=== PATIENT | female | born 1955 | race Caucasian/White ===

== ENCOUNTER → 2018-05-06 10:25 | Outpatient (CLI) | payer OTHER, SELFPAY ==
--- NOTE | 2018-05-06 | DI.MG.S_ITS ---
BILATERAL DIGITAL SCREENING MAMMOGRAM 3D/2D WITH CAD: 05/06/2018 CLINICAL: Routine screening. Comparison is made to exams dated: 04/16/2016 mammogram, 04/23/2017 mammogram, and 04/12/2015 mammogram - [facility]. The tissue of both breasts is heterogeneously dense. This may lower the sensitivity of mammography. Current study was also evaluated with a Computer Aided Detection (CAD) system. No significant masses, calcifications, or other findings are seen in either breast. There has been no significant interval change. IMPRESSION: NEGATIVE There is no mammographic evidence of malignancy. A 1 year screening mammogram is recommended. This exam was interpreted at Station ID: [id number]. NOTE: For mammograms, a report in lay terms will be sent to the patient. Approximately 15% of breast malignancies will not be visualized mammographically. In the management of a palpable breast mass, a negative mammogram must not discourage biopsy of a clinically suspicious lesion. Electronically Signed By: Pillo barrett/keagan:05/06/2018 16:59:05 letter sent: Normal Exam ACR BI-RADS Category 1: Negative [id number]
== END ==
PROVIDERS: PCP Family Medicine; Visit Provider Family Medicine
DX: Z12.31 Encounter for screening mammogram for malignant neoplasm of breast (principal)
CPT/HCPCS: 77063; 77067

== ENCOUNTER → 2018-11-05 11:13 | Outpatient (CLI) | payer OTHER, SELFPAY ==
[2018-11-05 12:29] LABS: Alanine Aminotransferase 61 IU/L (9-52); Albumin 3.3 g/dL (3.5-5.0); Albumin Globulin Ratio 0.7 (1.0-2.8); Alkaline Phosphatase 145 U/L (38-126); Aspartate Aminotransferase 43 IU/L (14-36); Blood Urea Nitrogen 11 mg/dL (7-17); Calcium 9.1 mg/dL (8.4-10.2); Carbon Dioxide 21 mmol/L (22-32); Chloride 95 mmol/L (98-107); Estimated Glomerular Filt Rate > 60.0 mL/min (>60); Globulin 4.8 g/dL (1.7-4.1); Glucose 328 mg/dL (80-110); HDL Cholesterol 33 mg/dL (40-60); Potassium 4.1 mmol/L (3.4-5.1); Sodium 133 mmol/L (137-145); Total Protein 8.1 g/dL (6.3-8.2)
[2018-11-05 12:58] LABS: Cholesterol 1219 mg/dL (140-199); HEMOLYSIS < 15 (0-50)
[2018-11-05 12:59] LABS: Thyroid Stimulating Hormone 2.66 uIU/mL (0.47-4.68)
[2018-11-05 13:10] LABS: Add Manual Diff / Slide Review NO; Basophils Absolute Auto 100 /uL (0-100); Basophils Percent Auto 0.8 % (0-2); Eosinophils Absolute Auto 200 /uL (0-450); Eosinophils Percent Auto 3.3 % (2-4); Hematocrit 41.1 % (36-46); Hemoglobin 14.8 g/dL (12.0-16.0); Lymphocytes Absolute Auto 2500 /uL (1100-4500); Lymphocytes Percent Auto 33.6 % (25-40); Mean Corpuscular HGB Conc 35.9 % (30-36); Mean Corpuscular Hemoglobin 33.5 PG (26-34); Mean Corpuscular Volume 93.4 fL (80-100); Monocytes Absolute Auto 500 /uL (0-900); Monocytes Percent Auto 7.2 % (3-14); Neutrophils Absolute Auto 4200 /uL (1500-7000); Neutrophils Percent Auto 55.1 % (50-75); Platelet Count 305 X10^3/uL (150-400); Red Cell Distribution Width 12.6 % (11.6-14.8)
[2018-11-05 13:12] LABS: White Blood Cell Count 7.6 X10^3/uL (4.5-11.0)
[2018-11-05 13:26] LABS: Triglycerides 13862 mg/dL (35-150)
[2018-11-05 14:09] LABS: Hemoglobin A1C% w Est Avg Glu 9.4 % (4.0-6.0)
== END ==
PROVIDERS: PCP Family Medicine; Visit Provider Family Medicine
DX: E11.9 Type 2 diabetes mellitus without complications (principal); E78.5 Hyperlipidemia, unspecified
CPT/HCPCS: 36415; 80053; 80061; 83036; 84443; 85025

== ENCOUNTER 2018-11-05 20:14 | Inpatient (IN) | payer OTHER, SELFPAY ==
[2018-11-05 20:20] VITALS: BP 174/92; PULSE 83; RESP 16; TEMP 36.8; O2SAT 98; BMI 30.2
[2018-11-05 20:50] VITALS: BP 172/95; BP 174/92; PULSE 82; PULSE 83
--- NOTE | 2018-11-05 21:47 | DI.CT.S_ITS ---
PROCEDURE: CT ABDOMEN PELVIS W CON INDICATIONS: EPIGASTRIC PAIN, TECHNIQUE: After the administration of intravenous contrast, 5 mm thick sections acquired from the diaphragm to the symphysis. 5 mm coronal and sagittal reformats were acquired. For radiation dose reduction, the following was used: automated exposure control, adjustment of mA and/or kV according to patient size. COMPARISON: [facility], , US ABDOMEN COMPLETE, 11/05/2018, 23:28. FINDINGS: Image quality: Excellent. ABDOMEN: Lung bases: Lung bases are clear. Heart size is normal. Solid organs: There is stranding adjacent to the pancreatic head. A small amount of fluid is present in the lesser sac. Pancreas enhances normally without evidence for pancreatic necrosis. Pancreatic duct is normal in caliber. No pancreatic calcifications. Diffuse hepatic fatty infiltration. Liver is normal in size and enhancement. Gallbladder is normal. Biliary system is non dilated. Spleen is normal in size and enhancement. No adrenal nodules. Kidneys demonstrate normal size and enhancement, without hydronephrosis. Peritoneum and bowel: Bowel loops demonstrate normal wall thickness and caliber. No free fluid or air. Nodes and vessels: No retroperitoneal or mesenteric adenopathy by size criteria. Aorta and inferior vena cava are normal in size. Miscellaneous: No ventral hernias. PELVIS: Genitourinary: Bladder wall thickness is normal. Miscellaneous: No inguinal hernias or adenopathy. Bones: No suspicious bony lesions. No vertebral body compression fractures. IMPRESSION: 1. The CT findings are consistent with acute pancreatitis. 2. No gallstones. 3. Hepatic steatosis. The result was discussed with Dr. Diamond prior to dictation. No significant discrepancy with the manager night radiology preliminary report. Dictated by: Jany Strauss M.D. on 11/06/2018 at 7:58 Approved by: Jany Strauss M.D. on 11/06/2018 at 18:09
[2018-11-05 22:00] VITALS: BP 170/84; PULSE 84; RESP 17; O2SAT 97
[2018-11-05] MEDS: MORPHINE 4 MG/ML INJ IV (22:27)
[2018-11-05] MEDS: SODIUM CHLORIDE 0.9% 1,000 ML 1000 ML IV (22:28)
[2018-11-05 22:37] LABS: Lipase 895 U/L (23-300)
--- NOTE | 2018-11-05 23:09 | DI.US.S_ITS ---
PROCEDURE: US ABDOMEN COMPLETE INDICATIONS: PANCREATITIS, PAIN TECHNIQUE: Real-time scanning was performed of the abdominal and retroperitoneal organs, with image documentation. COMPARISON: [facility], CT, CT ABDOMEN PELVIS W CON, 11/05/2018, 22:07. FINDINGS: Liver: Liver is diffusely increased in echogenicity. No focal hepatic abnormalities identified. Normal hepatic size. Gallbladder: No gallstones identified. Normal gallbladder wall. No pericholecystic fluid. Negative sonographic Alanis sign. Biliary ducts: Intrahepatic bile ducts are non-dilated. Extrahepatic bile duct caliber measures 6.3 mm. Normal is 6-7 mm or less in diameter, or 10 mm or less post-cholecystectomy. Pancreas: Visualized portions of the pancreas are sonographically normal. Spleen: Spleen is normal in size and homogeneous in echotexture. Kidneys: Kidneys are normal in size and echotexture. Right kidney measures 13.0 cm long; left kidney measures 11.9 cm long. No hydronephrosis or nephrolithiasis. No solid masses. Aorta: Visualized aorta is normal in caliber at less than 3 cm. Iliacs: Not well-visualized. IVC: Intrahepatic inferior vena cava is patent. Miscellaneous: No free abdominal fluid. IMPRESSION: 1. Minimally increased hepatic echogenicity noted possibly related to hepatic steatosis but other sources of hepatocellular disease cannot be excluded. Recommend clinical correlation. 2. No source for abdominal pain identified. Note: These findings are concordant with the preliminary interpretation. Dictated by: Romero POSEY Interpreted: Anastasia Garcia MD on 11/06/2018 at 8:42 Approved by: Anastasia Garcia M.D. on 11/06/2018 at 10:57
--- NOTE | 2018-11-05 23:27 | ED_ITS ---
HPI - Abdominal Pain General Chief Complaint: Abdominal Pain Stated Complaint: states severe upper abdominal pain and back ache Time Seen by Provider: 11/05/18 21:21 Source: patient, family and old records reviewed Mode of arrival: ambulatory Limitations: no limitations History of Present Illness HPI narrative: Patient is a 62-year-old female who presents with abdominal pain and back pain. She says has been ongoing for a few days she saw her PCP today who actually did outpatient blood work. She is noted to have triglycerides of 13,000. patient states that she has been taking her medication. She has been having some epigastric pain radiating through to her back. She has been nauseated at times but no significant vomiting. His other blood work reviewed today mild elevations in liver enzymes but bilirubin is normal along with normal WBC. MD complaint: abdominal pain Onset (ago): minute(s) Related Data Home Medications Medication Instructions Recorded Confirmed CA PANTOTHENATE/FOLIC ACID/VIT 1 tab PO Q DAY #0 05/23/11 11/06/18 (MULTIVITAMIN) Advair Diskus 1 inhalation INHALATION QAM 11/06/18 11/06/18 clobetasol 0 % TOPICAL PRN PRN 11/06/18 11/06/18 Previous Rx's Medication Instructions Recorded atorvastatin 80 mg PO HS #90 tab 05/05/18 fenofibrate nanocrystallized 145 mg PO HS #90 tab 05/05/18 [Tricor] metformin 500 mg tablet 500 mg PO BIDCC #180 tab 10/13/18 olopatadine 0.1 % eye drops 1 drop EYE-BOTH Q DAY #5 ml 10/15/18 Allergies Allergy/AdvReac Type Severity Reaction Status Date / Time No Known Drug Allergies Allergy Verified 11/05/18 20:46 Review of Systems Review of Systems GENERAL: Denies chills, fatigue, malaise, fever, sweats, travel HEENT: Denies sinus pain, ear pain, sore throat, difficulty swallowing, neck pain RESPIRATORY: Denies dyspnea, cough, wheezing, hemoptysis, sputum. CARDIOVASCULAR: Denies chest pain, palpitations, orthopnea, edema GASTROINTESTINAL: see HPI : Denies dysuria, frequency, incontinence, hematuria, urinary retention, flank pain. MUSCULOSKELETAL: Denies weakness, joint pain, or bony pain SKIN: No rash, no erythema, no pruritus NEUROLOGIC: Denies weakness, dizziness, headache, numbness, change in speech, confusion PSYCHIATRIC: No concerning psychosocial issues. 12 point review of systems is negative except for those stated above and HPI PFSH Medical History Dementia (Acute) Hyperlipidemia (Acute) Hypertension (Acute) Surgical History Status post surgery (01/10/10) Status post tubal ligation Family History Brother Age: 63 Hypertension Mother Kidney failure Sister Age: 70 Hypertension Social History Smoking Status: Never smoker Family History Brother Age: 63 Hypertension Mother Kidney failure Sister Age: 70 Hypertension Social History Smoking Status: Never smoker Exam Initial Vital Signs Initial Vital Signs: Vital Signs Temperature 98.2 F 11/05/18 20:20 Pulse Rate 83 11/05/18 20:20 Respiratory Rate 16 11/05/18 20:20 Blood Pressure 174/92 H 11/05/18 20:20 Pulse Oximetry 98 11/05/18 20:20 Const General: cooperative Nutritional Appearance: well nourished Orientation: alert, awake and oriented x3 HENMT Head: normal to inspection and normocephalic Eyes General: appearance normal, both eyes and all related structures Neck Neck: normal visual inspection, full ROM and no meningeal signs Chest Chest: normal inspection of the chest Resp Effort & Inspection: normal respiratory effort and able to speak in complete sentences Auscultation: clear to auscultation bilaterally, no rales, no rhonchi and no wheezes Cardio Rate: regular rate Rhythm: regular rhythm Heart Sounds: S1 normal and S2 normal GI Inspection: normal to inspection Palpation: soft, No firm, No guarding and tender ( epigastric area) Auscultation: normal bowel sounds Skin General: no rashes or lesions noted, No jaundice and No petechiae Course Orders Ordered: ED Orders 11/05/18 21:47 CT abdomen pelvis w con Stat 11/05/18 22:20 Lipase Stat 11/05/18 23:09 US abdomen complete Stat Sodium Chloride (Normal Saline 0.9%) 1,000 mls @ 200 mls/hr IV CONT LADARIUS Insulin Glargine (Lantus Solostar (Pen)) 10 unit SUBCUT BEDTIME LADARIUS Last Admin: 11/06/18 02:08 Dose: 10 unit Morphine Sulfate (Morphine) 2 mg IV Q4HR PRN PRN Reason: Pain, Moderate (4-6) Discontinued Medications Sodium Chloride (Normal Saline 0.9%) 1,000 mls @ 1,000 mls/hr IV BOLUS ONE Stop: 11/05/18 22:36 Last Infusion: 11/05/18 23:40 Dose: 0 mls/hr Admin: 11/05/18 22:28 Dose: 1,000 mls/hr Sodium Chloride (Normal Saline 0.9%) 1,000 mls @ 1,000 mls/hr IV BOLUS ONE Stop: 11/06/18 01:02 Last Admin: 11/06/18 01:53 Dose: 1,000 mls/hr Insulin Glargine (Lantus Solostar (Pen)) 10 unit SUBCUT BEDTIME LADARIUS Insulin Glargine (Lantus Solostar (Pen)) 10 unit SUBCUT BEDTIME LADARIUS Morphine Sulfate (Morphine) 4 mg IV NOW ONE Stop: 11/05/18 21:48 Last Admin: 11/05/18 22:27 Dose: 4 mg Morphine Sulfate (Morphine) 2 mg IV NOW ONE Stop: 11/06/18 00:04 Last Admin: 11/06/18 01:51 Dose: 2 mg Ondansetron HCl (Zofran) 4 mg IV NOW ONE Stop: 11/05/18 21:48 Last Admin: 11/06/18 01:53 Dose: Not Given Vital Signs - 8 hr 11/05/18 20:20 11/05/18 20:50 11/05/18 22:00 Temperature 98.2 F Pulse Rate 83 83 84 Respiratory Rate 16 17 Blood Pressure 174/92 H Blood Pressure [Left Arm] 174/92 H Blood Pressure [Right Arm] 172/95 H 170/84 H Pulse Oximetry 98 97 11/05/18 23:34 11/05/18 23:36 11/06/18 00:45 Temperature 98.6 F Pulse Rate 85 86 Respiratory Rate 17 18 Blood Pressure 162/92 H Blood Pressure [Left Arm] Blood Pressure [Right Arm] 177/85 H Pulse Oximetry 96 93 MDM - Abdominal Pain Lab Data Attestation: I reviewed the patient's lab results. Lab Results 11/05/18 Range/Units 22:20 Lipase 895 H (23-300) U/L Imaging Data CT scan - abdomen: Radiologist's impression: night coordinator report: acute pancreatitis with fluid and stranding predominantly adjacent to the pancreatic head as well as between pancreatic head and gallbladder US - abdomen: Radiologist's impression: night coordinator report: No significant abnormality please refer to the CT earlier common bile duct dilated 6.3 mm MDM Narrative Medical decision making narrative: patient's pain is controlled she is not actively vomiting. Pancreatitis is likely from hypertriglyceridemia. she is likely noncompliant with her medications hemoglobin A1c is also 9.4. I discussed case with Dr. Diamond her PCP. Agrees with admission. Request Lantus 10 units, and sliding scale. Discharge Plan Departure Patient Disposition: Admitted as Observation Clinical Impression: Hypertriglyceridemia Pancreatitis Qualifiers: Chronicity: acute Pancreatitis type: other Acute pancreatitis complication: uninfected necrosis Qualified Code(s): K85.81 - Other acute pancreatitis with uninfected necrosis Discharge Date/Time: 11/06/18 00:39 Interventions: ED Discharge Assessment Last Done: 11/06/18 00:39 Admit Date/Time: 11/06/18 00:10 Admit Provider: Arthur Diamond
[2018-11-05 23:34] VITALS: PULSE 85; RESP 17; O2SAT 96
[2018-11-05 23:36] VITALS: BP 177/85
[2018-11-06] VITALS (8 sets, daily range): BP systolic 130–172; BP diastolic 69–92; PULSE 84–100; RESP 15–20; TEMP 36.7–37.2; O2SAT 93–96; BMI 30.2
[2018-11-06] MEDS: MORPHINE 2 MG/ML INJ IV ×4 (01:51→18:41)
[2018-11-06] MEDS: SODIUM CHLORIDE 0.9% 1,000 ML 1000 ML IV (01:53)
[2018-11-06] MEDS: INSULIN GLARGINE 100 UNIT/ML 3ML PEN 10 UNIT SUBCUT ×2 (02:08→21:41)
[2018-11-06] MEDS: SODIUM CHLORIDE 0.9% 1,000 ML 200 ML IV ×5 (03:01→23:43)
--- NOTE | 2018-11-06 04:15 | PC.NURSE ---
Addendum entered by Grecia Haider R.N. 11/06/18 06:42: MORPHINE MINIMALLY EFFECTIVE. BP ELEVATED. DR. ESTEVEZ PAGED TO NOTIFY OF BOTH CONCERNS. AWAITING RETURN CALL. Original Note: PT ARRIVED TO ROOM 211 VIA W/C AT APPROX 0100. A/OX3. AMBULATED TO BED WITHOUT ASSIST. STEADY ON FEET. REPORTS ABD PAIN. PER MD IN ED PT WAS TO HAVE 2 LITERS NS, 1O UNITS OF LANTUS, 2 MG MORPHINE. PT ONLY REC 1 LITER OF NS. THIS LIBRARY SERVICES ASSISTANT ADMINISTERED 1 LITER NS AND THEN STARTED NS INFUSION 200 ML/HR. 2 MG MORPHINE. INTERACTIVE MULTIMEDIA DESIGNER CAME TO THIS UNIT TO ADMINISTER 10 UNITS OF LANTUS. PT ORIENTED TO UNIT/CALL SYSTEM. PT REPORTS SHE DRINK 1-3 DRINKS PER DAY BUT HAS NOT DRANK FOR LAST 2 DAYS.
[2018-11-06] MEDS: HYDROMORPHONE PCA (6MG/30ML) 6 MG/30 ML PCA.VIAL IV ×2 (08:35→22:30)
[2018-11-06 08:53] LABS: Alanine Aminotransferase 42 IU/L (9-52); Albumin 3.7 g/dL (3.5-5.0); Albumin Globulin Ratio 1.1 (1.0-2.8); Alkaline Phosphatase 78 U/L (38-126); Aspartate Aminotransferase 27 IU/L (14-36); Bilirubin Total 0.8 mg/dL (0.2-1.3); Blood Urea Nitrogen 4 mg/dL (7-17); Calcium 7.5 mg/dL (8.4-10.2); Carbon Dioxide 12 mmol/L (22-32); Chloride 101 mmol/L (98-107); Estimated Glomerular Filt Rate > 60.0 mL/min (>60); Globulin 3.5 g/dL (1.7-4.1); Glucose 233 mg/dL (80-110); HEMOLYSIS 49 (0-50); Potassium 3.7 mmol/L (3.4-5.1); Sodium 133 mmol/L (137-145); Total Protein 7.2 g/dL (6.3-8.2)
[2018-11-06 08:59] LABS: B Type Natriuretic Peptide < 100 (<100)
--- NOTE | 2018-11-06 09:16 | PM.HP.1 ---
History of Present Illness Date Patient Seen: 11/06/18 Time Patient Seen: 07:16 Chief complaint: states severe upper abdominal pain and back ache Narrative: Abdominal pain. Patient admitted through the emergency room last night for pancreatitis. Patient has been essentially well up until Saturday morning. She began have abdominal pain. She called the office and we order some laboratory studies and set her up for appointment next week. During the course of the day the pain got worse pretty intense. No vomiting but some nausea. She has had decreased stool output. She came to the emergency room and was found to have some changes consistent with pancreatitis and admitted. Patient thinks she may have had a similar episode several years ago with for which she sought no physician 4. She is unclear whether not his pancreatitis or not but she thinks. Patient still has a gallbladder has lot of gallstones in the past. She admits to drinking 3 drinks when she does drink but she did apparently does not drink every day. Patient is since retired. She has a history of diabetes, history of hyper lipidemia, and also noncompliance with medications. She admits that she has not been terribly compliant with medications although details are unknown. Patient History Medical History Dementia (Acute) Hyperlipidemia (Acute) Hypertension (Acute) Surgical History Status post surgery (01/10/10) Status post tubal ligation Family History Brother Age: 63 Hypertension Mother Kidney failure Sister Age: 70 Hypertension Social History household members: spouse Smoking Status: Never smoker alcohol intake: current Family & Social History Family History Brother Age: 63 Hypertension Mother Kidney failure Sister Age: 70 Hypertension Social History: household members spouse Prior Living Arrangements House Safety & Behavioral: Feels Safe in Current Yes Environment Been Physically Hurt or No Threatened By a Person Suicidal Ideation Description None Tobacco & Substance use: Smoking Status Never smoker alcohol intake current alcohol intake frequency 3 or more drinks per day Substance Use Type does not use Meds Home Medications Medication Instructions Recorded Confirmed Type CA PANTOTHENATE/FOLIC ACID/VIT 1 tab PO Q DAY #0 05/23/11 11/06/18 History (MULTIVITAMIN) atorvastatin 80 mg PO HS #90 tab 05/05/18 11/06/18 Rx fenofibrate nanocrystallized 145 mg PO HS #90 tab 05/05/18 11/06/18 Rx [Tricor] metformin 500 mg tablet 500 mg PO BIDCC #180 tab 10/13/18 11/06/18 Rx olopatadine 0.1 % eye drops 1 drop EYE-BOTH Q DAY #5 ml 10/15/18 11/06/18 Rx Advair Diskus 1 inhalation INHALATION QAM 11/06/18 11/06/18 History clobetasol 0 % TOPICAL PRN PRN 11/06/18 11/06/18 History Allergies Allergy/AdvReac Type Severity Reaction Status Date / Time No Known Drug Allergies Allergy Verified 11/05/18 20:46 Review of Systems Review of Systems All systems reviewed & are unremarkable except as noted in HPI and below Exam Vital Signs (past 8 hours): - 11/06/18 05:47 11/06/18 07:39 Temperature 99.0 F 98.1 F Pulse Rate 84 89 Respiratory Rate 16 18 Blood Pressure 172/91 H 165/88 H Pulse Oximetry 94 96 Oxygen Delivery Method Room Air Oxygen Flow Rate 0 Narrative Exam Narrative: Gen.: She is exam in the hospital bed she appears uncomfortable grimacing Skin: Warm well perfused. No prominent lesions. Nonicteric. HEENT: PERRL., normal EOM, external ears canals TMs normal, nasal mucosa normal and midline septum, oropharynx without lesions. Neck: Trachea midline. Thyroid nontender and not enlarged. Carotids without bruits. No lymphadenopathy Back: No obvious deformity or tenderness. Chest: Clear to P&A. Symmetric. CV: RRR no murmur or gallop. No JVD. Abdomen: Abdomen seemed distended. Very rare bowel sounds. And markedly tender in the periumbilical area and the upper abdomen there is no rebound it does seem to be soft Neuro: Cranial nerves II through XII grossly intact. Sensory and motor exams intact. Gait normal. Mental status: Intact for screening Extremities: No cyanosis clubbing or edema Musculoskeletal: No gross deformities Lymphatics: Negative for lymphadenopathy, supraclavicular axillary or inguinal Objective Labs Result Diagrams: 11/06/18 08:05 Labs: Laboratory Results - last 24 hr 11/05/18 11/06/18 11/06/18 22:20 08:05 08:05 Sodium 133 L Potassium 3.7 Chloride 101 Carbon Dioxide 12 L BUN 4 L Creatinine 0.40 L Estimated GFR > 60.0 BUN/Creatinine Ratio 10.0 Glucose 233 H Calcium 7.5 L Total Bilirubin 0.8 AST 27 ALT 42 Alkaline Phosphatase 78 D B-Natriuretic Peptide < 100 Total Protein 7.2 Albumin 3.7 Globulin 3.5 Albumin/Globulin Ratio 1.1 Lipase 895 H labs reviewed from drawn earlier. Hemoglobin A1c is 9.4. Elevated lipids with triglycerides of over 23,[address] is reviewed with radiologist this morning changes consistent pancreatitis no gallstones seen no evidence for ileus or bowel obstruction Assessment & Plan Assessment & Plan narrative: 1. Acute pancreatitis obvious etiology is hypertriglyceridemia. Unclear exactly how much alcohol intake has to do with this but questionable. She has no evidence for gallstones or any bile duct disorder. 2. Marked hyperlipidemia up with significant hypertriglyceridemia. Patient has been on atorvastatin and try core for the above diagnoses but as stated compliance has been marginal. 3. Diabetes mellitus on metformin hemoglobin A1c of 9.4 again unclear how much of her noncompliance does relates to this. While she is in the hospital she will be given Lantus at bedtime and covered with sliding scale discharge medicines yet to be determined 4. Patient will be treated with continuous hydromorphone as needed for pain, Zofran for nausea, insulin as needed. Patient will be NPO until obvious improvement of pancreatitis. This may well take several days. Pending as she does over the next 24 hr well commence with TPN as this may well be a long drawn out problem. Quality VTE Deep Vein Thrombosis/Pulmonary Embolism Present on Admission: No
[2018-11-06] MEDS: ENOXAPARIN 40 MG/0.4 ML SYRINGE SUBCUT (12:07)
--- NOTE | 2018-11-06 12:11 | PT.IPTN ---
Current Diagnoses Acute pancreatitis without necrosis or infection, unspecified (11/06/18) Physical Therapy Treatment Note M3 PT-IP Subjective Start: 11/06/18 12:10 Freq: NEEDED Status: Active Protocol: Document 11/06/18 12:10 AB (Rec: 11/06/18 12:11 AB [id number]) Subjective Physical Therapy Visit Type Type Patient Refusal Notes checked on pt ~ 900 am and pt stated that she has a lot of pain and does not want PT at this time but agreed for PT to check again later. checked on pt again ~ 1030 am and pt asleep. spouse present and requested to leave pt and to check back later in afternoon.
--- NOTE | 2018-11-06 13:03 | PC.NURSE ---
Influenza vaccine has been changed to Saturday, Nov 07 as this patient has been painful today and would like to wait.
--- NOTE | 2018-11-06 13:17 | PM.HP.1 ---
History of Present Illness Chief complaint: states severe upper abdominal pain and back ache Narrative: Abdominal pain. Patient admitted through the emergency room last night for pancreatitis. Patient has been essentially well up until Saturday morning. She began have abdominal pain. She called the office and we order some laboratory studies and set her up for appointment next week. During the course of the day the pain got worse pretty intense. No vomiting but some nausea. She has had decreased stool output. She came to the emergency room and was found to have some changes consistent with pancreatitis and admitted. Patient thinks she may have had a similar episode several years ago with for which she sought no physician 4. She is unclear whether not his pancreatitis or not but she thinks. Patient still has a gallbladder has lot of gallstones in the past. She admits to drinking 3 drinks when she does drink but she did apparently does not drink every day. Patient is since retired. She has a history of diabetes, history of hyper lipidemia, and also noncompliance with medications. She admits that she has not been terribly compliant with medications although details are unknown. Patient History Medical History Dementia (Acute) Hyperlipidemia (Acute) Hypertension (Acute) Surgical History Status post surgery (01/10/10) Status post tubal ligation Family History Brother Age: 63 Hypertension Mother Kidney failure Sister Age: 70 Hypertension Social History household members: spouse Smoking Status: Never smoker alcohol intake: current Family & Social History Family History Brother Age: 63 Hypertension Mother Kidney failure Sister Age: 70 Hypertension Social History: household members spouse Prior Living Arrangements House Safety & Behavioral: Feels Safe in Current Yes Environment Been Physically Hurt or No Threatened By a Person Suicidal Ideation Description None Tobacco & Substance use: Smoking Status Never smoker alcohol intake current alcohol intake frequency 3 or more drinks per day Substance Use Type does not use Meds Home Medications Medication Instructions Recorded Confirmed Type CA PANTOTHENATE/FOLIC ACID/VIT 1 tab PO Q DAY #0 05/23/11 11/06/18 History (MULTIVITAMIN) atorvastatin 80 mg PO HS #90 tab 05/05/18 11/06/18 Rx fenofibrate nanocrystallized 145 mg PO HS #90 tab 05/05/18 11/06/18 Rx [Tricor] metformin 500 mg tablet 500 mg PO BIDCC #180 tab 10/13/18 11/06/18 Rx olopatadine 0.1 % eye drops 1 drop EYE-BOTH Q DAY #5 ml 10/15/18 11/06/18 Rx Advair Diskus 1 inhalation INHALATION QAM 11/06/18 11/06/18 History clobetasol 0 % TOPICAL PRN PRN 11/06/18 11/06/18 History Allergies Allergy/AdvReac Type Severity Reaction Status Date / Time No Known Drug Allergies Allergy Verified 11/05/18 20:46 Exam Vital Signs (past 8 hours): - 11/06/18 05:47 11/06/18 07:39 11/06/18 07:47 Temperature 99.0 F 98.1 F 98.1 F Pulse Rate 84 89 89 Respiratory Rate 16 18 18 Blood Pressure 172/91 H 165/88 H 165/88 H Pulse Oximetry 94 96 96 11/06/18 12:03 Temperature 98.8 F Pulse Rate 94 H Respiratory Rate 16 Blood Pressure 153/83 H Pulse Oximetry 94 Oxygen Delivery Method Room Air Oxygen Flow Rate 0 Objective Labs Result Diagrams: 11/06/18 08:05 Labs: Laboratory Results - last 24 hr 11/05/18 11/06/18 11/06/18 22:20 08:05 08:05 Sodium 133 L Potassium 3.7 Chloride 101 Carbon Dioxide 12 L BUN 4 L Creatinine 0.40 L Estimated GFR > 60.0 BUN/Creatinine Ratio 10.0 Glucose 233 H Calcium 7.5 L Total Bilirubin 0.8 AST 27 ALT 42 Alkaline Phosphatase 78 D B-Natriuretic Peptide < 100 Total Protein 7.2 Albumin 3.7 Globulin 3.5 Albumin/Globulin Ratio 1.1 Lipase 895 H Quality VTE Deep Vein Thrombosis/Pulmonary Embolism Present on Admission: No
--- NOTE | 2018-11-06 13:39 | PT.IIE ---
Current Diagnoses Acute pancreatitis without necrosis or infection, unspecified (11/06/18) Surgical History (Last Reviewed 11/06/18 @ 09:18 by Arthur Diamond MD) Status post surgery (01/10/10) Status post tubal ligation Medical History (Last Reviewed 11/06/18 @ 09:18 by Arthur Diamond MD) Dementia (Acute) Hyperlipidemia (Acute) Hypertension (Acute) Physical Therapy Inpatient Evaluation/Re-Eval M1 PT/OT-IP Prior Functional Status Start: 11/06/18 12:10 Freq: NEEDED Status: Active Protocol: Document 11/06/18 13:39 AB (Rec: 11/06/18 14:38 AB [id number]) Medical Review Prior Functional Status Medical History Reviewed Yes Diet/Fluid Consistency NPO Communication able to make needs known Mobility and Gait stated that she is independent with all mobilities and ambulation without AD Social History Household Members spouse Living Arrangements House Number of Floors (Floors) One Floor Number of Stairs To Enter/Railing? 2 steps to enter with R rail ascending Home Environment Standard Height Toilet High Toilet Walk in Shower Home Equipment Hand Held Shower M2 PT-IP Current Condition Start: 11/06/18 12:10 Freq: NEEDED Status: Active Protocol: Document 11/06/18 13:39 AB (Rec: 11/06/18 14:38 AB [id number]) Physical Therapy Current Condition Current Condition Evaluation Date 11/06/18 Treatment Diagnosis pancreatitis; difficulty in walking Onset Date 11/06/18 Precautions Other Precautions NPO M3 PT-IP Subjective Start: 11/06/18 12:10 Freq: NEEDED Status: Active Protocol: Document 11/06/18 13:39 AB (Rec: 11/06/18 14:38 AB [id number]) Subjective Physical Therapy Visit Type Type Initial Evaluation Visit Start Time 13:39 Visit Stop Time 14:00 Total Visit Minutes 21 Number of NON DESTRUCTIVE EVALUATION MANAGER Visits 0 Physical Therapy Visit Comments Patient Comments agreeable to get up Therapy Pain Assessment Pain When Pain Assessed At Rest Pain Present Pain Present Pain Reported Location Back Scale Used pain scale not stated Pain Behaviors Moaning Pain Management Techniques Re-positioning Timing of Activity with Medications M4 PT-IP Mobility and Gait Start: 11/06/18 12:10 Freq: NEEDED Status: Active Protocol: Document 11/06/18 13:39 AB (Rec: 11/06/18 14:38 AB [id number]) PT-Bed Mobility Assessment Supine to Sit Supine to Sit Standby Assistance Sit to Supine Sit to Supine Standby Assistance PT-Transfer Assessment Sit to and From Stand Sit to and from Stand Standby Assistance Equipment Transfer Assistive Device Gait Belt Front Wheeled Walker Orthotic/Prosthetic Devices or Brace: No Transfers Transfer Destination Toilet Transfer Technique pt ambulated to the toilet using FWW Transfer Ability Level of Assist Standby Assistance Contact Guard Assistance Comments Mobility Comments pt requiring use of FWW during ambulation due to feeling unsteady due to pain. pt completed ambulation to the toilet using FWW SBA to CGA. pt was able to maintain standing SBA while managing brief. pt ambulated from the toilet to the sink using fWW SBA and completed handwashing standing SBA. pt ambulated back to bed as requested. pt felt nauseated after ambulation with (+) emesis. informed nurse. Gait Assessment Gait Gait Assistance Required: Standby Assistance Contact Guard Assist Distance (Feet) 15 Able to Maintain Weight Bearing Status Yes During Gait Assistive Devices Assistive Device Gait Belt Front Wheeled Walker Orthotic/Prosthetic Devices or Brace: No Factors Limiting Gait Function Factors Limiting Gait Function Decreased Activity Tolerance Pain Comments Gait Comments pt ambulated to the toilet and back to bed 15 ft x 2 using FWW SBA to CGA. pt presents with unsteady gait with c/o increase pain affecting mobility. PT-Balance Assessment Sitting Balance and Reactions Static Sitting Balance Ability Good Dynamic Sitting Balance Ability Good Standing Balance and Reactions Static Standing Balance Ability Fair Dynamic Standing Balance Ability Fair Device Used FWW M5 PT-IP Objective Assessments Start: 11/06/18 12:10 Freq: NEEDED Status: Active Protocol: Document 11/06/18 13:39 AB (Rec: 11/06/18 14:38 AB [id number]) Orientation Orientation/Cognition Level of Alertness Alert Orientation Name Age Birthday Month Date Year Day of Week Place Situation Safety Awareness Understands Safety Issues Memory Description No Deficits Noted Gross Range of Motion Lower Extremity ROM Assessment Within Functional Limits Strength Lower Extremity Strength Assessment Within Functional Limits Coordination Assessment Gross Coordination Gross Coordination WNL Sensation Assessment Sensation Gross Sensation WNL Muscle Tone Muscle Tone WNL Yes M6 PT-IP Treatment Start: 11/06/18 12:10 Freq: NEEDED Status: Active Protocol: Document 11/06/18 13:39 AB (Rec: 11/06/18 14:38 AB [id number]) Physical Therapy Treatment Education Education Provided Safety M7 PT-IP Assessment and Plan Start: 11/06/18 12:10 Freq: NEEDED Status: Active Protocol: Document 11/06/18 13:39 AB (Rec: 11/06/18 14:38 AB [id number]) PT Summary Assessment and Plan Potential Rehabilitation Potential Good Status of Condition at Evaluation Evolving Summary Impairments Pain ROM Balance Bed Mobility Transfers Gait Activity Tolerance Assessment Summary pt requiring SBA to CGA with mobility. presents with unsteady gait due to c/o pain affecting mobility and has to use FWW for support. pt will likely progress in function during hospital stay with improvement on pain and may go home when medically stable. will continue to assess. Goals Bed Mobility Goal Independent Transfer Goal Independent Front Wheeled Walker Gait Goal Independent Front Wheel Walker Gait Distance 250 Other Goals up/down 2 steps with R rail ascending SBA Days to Meet Goals 5 Frequency of Treatment Frequency Of Treatment Once a Day Treatment Plan Physical Therapy Treatment Plan Bed Mobility Training Transfer Training Gait Training Therapeutic Exercise Balance Retraining Discharge Planning Hot or Cold Pack Neuromuscular Re-ed Coordination Retraining Manual Therapy Other Recommendations and Next Treatment ambulation, stair climbing Focus Recommendations To Nursing Amount of Assist Needed 1 Person Assist Discharge Recommendations PT Discharge Recommendations Home with Assistance Equipment Needed for Home Before may need FWW depending on Discharge progress
[2018-11-06] MEDS: ONDANSETRON 4 MG/2 ML INJ IV (14:09)
--- NOTE | 2018-11-06 18:59 | PC.NURSE ---
Addendum entered by Ofelia Goss R.N. 11/06/18 22:23: Pt resting quietly throughout evening. [employer] effective for pain. IVF continue as per orders. Call light w/in reach/ bed alarm on for pt safety. Continue w/plan of care. Original Note: Pt resting at intervals early on. Awoke w/ increased mid abdominal pain. Med w/ MS 2mg IV @ 1850. [employer] continues a per orders. IV NS continues via pump at 200cc/hr. Call light w/in reach.
[2018-11-06 19:06] LABS: Alanine Aminotransferase 36 IU/L (9-52); Albumin 3.6 g/dL (3.5-5.0); Albumin Globulin Ratio 1.3 (1.0-2.8); Alkaline Phosphatase 64 U/L (38-126); Aspartate Aminotransferase 30 IU/L (14-36); Bilirubin Total 0.8 mg/dL (0.2-1.3); Blood Urea Nitrogen 4 mg/dL (7-17); Calcium 7.3 mg/dL (8.4-10.2); Carbon Dioxide 16 mmol/L (22-32); Chloride 102 mmol/L (98-107); Estimated Glomerular Filt Rate > 60.0 mL/min (>60); Globulin 2.7 g/dL (1.7-4.1); Glucose 185 mg/dL (80-110); HEMOLYSIS 33 (0-50); Potassium 4.7 mmol/L (3.4-5.1); Sodium 134 mmol/L (137-145); Total Protein 6.3 g/dL (6.3-8.2)
[2018-11-07] VITALS (9 sets, daily range): BP systolic 138–154; BP diastolic 71–83; PULSE 89–99; RESP 17–19; TEMP 36.8–37.4; O2SAT 94–98
--- NOTE | 2018-11-07 02:33 | PC.NURSE ---
ASSUMED CARE OF PT ON 11/06 AT 2300. PT SLEEPING DURING BEDSIDE HAND-OFF. AWAKENS TO VOICE. A/OX4. REPORTS ABD PAIN IS BETTER WITH ASSISTANT CHIEF TRAIN DISPATCHER. ENC TO USE PRN. ABD MORE DISTENDED, ROUNDED, FIRM AND TENDER THIS SHIFT. DENIES NAUSEA OR FLATUS THIS FAR THIS SHIFT. SBA TO BATHROOM FOR FALL PREVENTION. IVF AND ASSISTANT CHIEF TRAIN DISPATCHER PER ORDERS. CALLING APPROPRIATELY FOR NEEDS.
[2018-11-07] MEDS: SODIUM CHLORIDE 0.9% 1,000 ML 200 ML IV ×5 (04:29→23:50)
[2018-11-07 07:49] LABS: Blood Urea Nitrogen 6 mg/dL (7-17); Calcium 6.6 mg/dL (8.4-10.2); Carbon Dioxide 22 mmol/L (22-32); Chloride 104 mmol/L (98-107); Estimated Glomerular Filt Rate > 60.0 mL/min (>60); Glucose 169 mg/dL (80-110); Magnesium 1.5 mg/dL (1.6-2.3); Sodium 136 mmol/L (137-145)
[2018-11-07 07:55] LABS: HEMOLYSIS 139 (0-50)
[2018-11-07 07:56] LABS: Potassium 3.8 mmol/L (3.4-5.1)
[2018-11-07 08:11] LABS: Lipase 1372 U/L (23-300)
[2018-11-07 08:14] LABS: B Type Natriuretic Peptide < 100 (<100)
[2018-11-07 08:15] LABS: Mean Corpuscular HGB Conc 33.5 % (30-36); Mean Corpuscular Hemoglobin 30.9 PG (26-34); Mean Corpuscular Volume 92.3 fL (80-100); Platelet Count 301 X10^3/uL (150-400); Red Blood Cell Count 3.74 X10^6/uL (4.0-5.2); Red Cell Distribution Width 13.2 % (11.6-14.8)
--- NOTE | 2018-11-07 08:18 | PM.PN.1 ---
Subjective Date Patient Seen: 11/07/18 Time Patient Seen: 08:18 Interval history: Patient reports feeling better this morning. Pain is still present but improved. Not all hungry not nauseated has a dry mouth and a cold drink of water would be wonderful but other than that really has no complaints Exam Vital Signs (past 8 hours): - 11/07/18 05:00 Temperature 98.4 F Pulse Rate 98 H Respiratory Rate 18 Blood Pressure 144/79 H Pulse Oximetry 96 Oxygen Delivery Method Room Air Oxygen Flow Rate 0 Objective Labs Result Diagrams: 11/07/18 07:25 11/07/18 07:25 Labs: Laboratory Results - last 24 hr 11/06/18 11/06/18 11/06/18 08:05 08:05 17:18 Sodium 133 L 134 L Potassium 3.7 4.7 Chloride 101 102 Carbon Dioxide 12 L 16 L BUN 4 L 4 L Creatinine 0.40 L 0.40 L Estimated GFR > 60.0 > 60.0 BUN/Creatinine Ratio 10.0 10.0 Glucose 233 H 185 H Calcium 7.5 L 7.3 L Magnesium Total Bilirubin 0.8 0.8 AST 27 30 ALT 42 36 Alkaline Phosphatase 78 D 64 B-Natriuretic Peptide < 100 Total Protein 7.2 6.3 Albumin 3.7 3.6 Globulin 3.5 2.7 Albumin/Globulin Ratio 1.1 1.3 Lipase 11/07/18 11/07/18 11/07/18 07:25 07:25 07:25 Sodium 136 L Potassium 3.8 Chloride 104 Carbon Dioxide 22 BUN 6 L Creatinine 0.40 L Estimated GFR > 60.0 BUN/Creatinine Ratio 15.0 Glucose 169 H Calcium 6.6 L Magnesium 1.5 L Total Bilirubin AST ALT Alkaline Phosphatase B-Natriuretic Peptide < 100 Total Protein Albumin Globulin Albumin/Globulin Ratio Lipase 1372 H D Assessment & Plan Assessment & Plan narrative: 1. Pancreatitis-this is induced by hypertriglyceridemia of course. This morning's blood work is not all yet back as I dictate this but her calcium has dropped slightly and her magnesium is low. I would replace both of these with per enteral magnesium and calcium and plan to recheck again this afternoon. Still awaiting her blood counts. She has been afebrile. Also still awaiting repeat lipase. For now treatment is of course careful monitoring replacement of electrolytes as necessary and keeping her NPO with good IV fluid support and pain management which I think is ongoing. 2. Hypertriglyceridemia patient really has not standing level of triglycerides in her serum. However she does not appear to have severe pancreatitis at this point. Therefore more aggressive therapy such as a pheresis or even IV insulin are probably not indicated. Patient is receiving insulin appropriately so which will help drive down her triglycerides as well as control of blood sugar. I have increased the insulin dose slightly given her persistent mild hyperglycemia. If necessary some IV dextrose could be infused as she certainly needs to continue with insulin to help treat to the triglycerides. When patient is clearly improving I would reinstitute her statin therapy and her fibrate therapy orally in effort to help manage this as well. I suspect that her hypertriglyceridemia is likely a combination of things including her underlying metabolic disorder her poorly controlled diabetes some element of alcohol ingestion and perhaps other factors that have yet to be elucidated. This is all discussed at length with patient and her spouse who is present in the room with her as well Note: Greater than 30 minutes was spent evaluating the patient on the floor, including examining the patient, discussing clinical course with clinical and nursing staff, reviewing clinical course in the computer, preparing documentation and writing orders for continued management of care, discussing status with family as appropriate, reviewing plans for the next 24 hours with both patient/family and nursing staff as appropriate. Quality VTE Deep Vein Thrombosis/Pulmonary Embolism Present on Admission: No
[2018-11-07 08:39] LABS: White Blood Cell Count 3.9 X10^3/uL (4.5-11.0)
[2018-11-07 08:40] LABS: Add Manual Diff / Slide Review YES; Hematocrit 34.5 % (36-46); Hemoglobin 11.6 g/dL (12.0-16.0)
[2018-11-07 08:45] LABS: Neutrophils Absolute Manual 2223 /uL (3000-5900); Total Cells Counted 100
[2018-11-07 08:46] LABS: Polychromasia 1+
[2018-11-07 08:47] LABS: Rouleaux 1+
[2018-11-07] MEDS: HYDROMORPHONE PCA (6MG/30ML) 6 MG/30 ML PCA.VIAL IV ×2 (08:59→19:24)
[2018-11-07] MEDS: CALCIUM GLUCONATE 4.65 MEQ in SODIUM CHLORIDE 0.9% 50 ML 120 ML IV (09:01)
[2018-11-07] MEDS: ENOXAPARIN 40 MG/0.4 ML SYRINGE SUBCUT (09:04)
[2018-11-07] MEDS: ONDANSETRON 4 MG/2 ML INJ IV (09:13)
[2018-11-07] MEDS: MAGNESIUM SULFATE 2 GM/50 ML PIGGYBACK IV (09:42)
--- NOTE | 2018-11-07 10:13 | PT.IPTN ---
Current Diagnoses Acute pancreatitis without necrosis or infection, unspecified (11/06/18) Physical Therapy Treatment Note M2 PT-IP Current Condition Start: 11/06/18 12:10 Freq: NEEDED Status: Active Protocol: Document 11/06/18 13:39 AB (Rec: 11/06/18 14:38 AB [id number]) Physical Therapy Current Condition Current Condition Evaluation Date 11/06/18 Treatment Diagnosis pancreatitis; difficulty in walking Onset Date 11/06/18 Precautions Other Precautions NPO M3 PT-IP Subjective Start: 11/06/18 12:10 Freq: NEEDED Status: Active Protocol: Document 11/07/18 10:13 AB (Rec: 11/07/18 11:40 AB [id number]) Subjective Physical Therapy Visit Type Type Treatment Note Visit Start Time 10:13 Visit Stop Time 10:24 Total Visit Minutes 11 Number of GRAIN LOADER Visits 0 Physical Therapy Visit Comments Patient Comments pt agreed to do PT Therapy Pain Assessment Pain When Pain Assessed At Rest Pain Present Pain Present Pain Reported Location Back Scale Used pain scale not stated M4 PT-IP Mobility and Gait Start: 11/06/18 12:10 Freq: NEEDED Status: Active Protocol: Document 11/07/18 10:13 AB (Rec: 11/07/18 11:40 AB [id number]) PT-Bed Mobility Assessment Supine to Sit Supine to Sit Minimal Assistance Head of Bed Elevated Sit to Supine Sit to Supine Standby Assistance PT-Transfer Assessment Sit to and From Stand Sit to and from Stand Contact Guard Assistance Equipment Transfer Assistive Device None Gait Belt Front Wheeled Walker Transfers Transfer Destination Toilet Transfer Technique pt ambulated to the toilet Comments Mobility Comments pt completed bed mobility supine to sit with HOB elevated as requested and asked her spouse to assist her . pt wants to use the toilet and ambulated without AD requiring CGA. pt with unsteady gait and tends to hold on to bed frame/wall for support. educated pt regarding use of FWW for safety at this time and pt agreed. pt ambulated from the toilet towards the sink using FWW SBA to CGA and completed handwashing. pt agreed to do further ambulation in hallway. pt requested to go back to bed after ambulation. Gait Assessment Gait Gait Assistance Required: Standby Assistance Contact Guard Assist Distance (Feet) 50 Able to Maintain Weight Bearing Status Yes During Gait Assistive Devices Assistive Device Gait Belt Front Wheeled Walker Orthotic/Prosthetic Devices or Brace: No Gait Deviations General Gait Pattern Decreased Stride Length Decreased Feet Clearance Factors Limiting Gait Function Factors Limiting Gait Function Decreased Activity Tolerance Decreased Strength Pain Poor Balance M5 PT-IP Objective Assessments Start: 11/06/18 12:10 Freq: NEEDED Status: Active Protocol: Document 11/06/18 13:39 AB (Rec: 11/06/18 14:38 AB [id number]) Orientation Orientation/Cognition Level of Alertness Alert Orientation Name Age Birthday Month Date Year Day of Week Place Situation Safety Awareness Understands Safety Issues Memory Description No Deficits Noted Gross Range of Motion Lower Extremity ROM Assessment Within Functional Limits Strength Lower Extremity Strength Assessment Within Functional Limits Coordination Assessment Gross Coordination Gross Coordination WNL Sensation Assessment Sensation Gross Sensation WNL Muscle Tone Muscle Tone WNL Yes M6 PT-IP Treatment Start: 11/06/18 12:10 Freq: NEEDED Status: Active Protocol: Document 11/06/18 13:39 AB (Rec: 11/06/18 14:38 AB [id number]) Physical Therapy Treatment Education Education Provided Safety M7 PT-IP Assessment and Plan Start: 11/06/18 12:10 Freq: NEEDED Status: Active Protocol: Document 11/07/18 10:13 AB (Rec: 11/07/18 11:40 AB [id number]) PT Summary Assessment and Plan Potential Rehabilitation Potential Fair Summary Impairments Pain ROM Strength Balance Coordination Bed Mobility Transfers Gait Activity Tolerance Progress Towards Goals Slow Progress due to Pain Assessment Summary pt continues to have unsteady gait and c/o increase pain affecting mobility. pt has her spouse to assist her. d/c plan depending on progress. Goals Bed Mobility Goal Independent Transfer Goal Independent Front Wheeled Walker Gait Goal Independent Front Wheel Walker Gait Distance 250 Other Goals up/down 2 steps with R rail ascending SBA Days to Meet Goals 5 Frequency of Treatment Frequency Of Treatment Once a Day Treatment Plan Physical Therapy Treatment Plan Bed Mobility Training Transfer Training Gait Training Therapeutic Exercise Balance Retraining Discharge Planning Hot or Cold Pack Neuromuscular Re-ed Coordination Retraining Manual Therapy Other Recommendations and Next Treatment ambulation, stair climbing Focus Recommendations To Nursing Amount of Assist Needed 1 Person Assist Discharge Recommendations PT Discharge Recommendations Home with Assistance Equipment Needed for Home Before may need FWW depending on Discharge progress
--- NOTE | 2018-11-07 11:23 | PC.NURSE ---
Addendum entered by Carol Verde R.N. 11/07/18 14:37: NOISE TESTER Dilaudid shift total was 2.2mg. Original Note: Day Shift- Pt A&OX4, tends to keep eyes closed when answering questions however follows directions and answering appropriate. Rates 6-7/10 pain and tenderness to upper abd that is aching, intermittent sharp. Pain also to mid back around flank. NOISE TESTER Dilaudid in place per orders. Instructed pt on proper use. Pt remains NPO, mouth swabs, moisturizer and lip balm enc. IVF infusing well to left FA PIV. During AM assessment, pt had mild nausea turn to moderate nausea with approx 30mls of gastric-like fluid emesis. PRN IV zofran given with good effect. Pt given one time dose of Magnesium IV and Calcium IV per MAR orders. Pt's Apolinar at bedside. Call light within reach.
[2018-11-07] MEDS: INSULIN ASPART 100 UNIT/ML INSULN PEN SUBCUT (13:13)
[2018-11-07 14:52] LABS: Blood Urea Nitrogen 6 mg/dL (7-17); Calcium 6.9 mg/dL (8.4-10.2); Carbon Dioxide 22 mmol/L (22-32); Chloride 104 mmol/L (98-107); Estimated Glomerular Filt Rate > 60.0 mL/min (>60); Glucose 154 mg/dL (80-110); HEMOLYSIS 31 (0-50); Magnesium 2.2 mg/dL (1.6-2.3); Potassium 3.4 mmol/L (3.4-5.1); Sodium 136 mmol/L (137-145)
[2018-11-07] MEDS: INSULIN GLARGINE 100 UNIT/ML 3ML PEN 14 UNIT SUBCUT (18:59)
[2018-11-08] VITALS (10 sets, daily range): BP systolic 141–159; BP diastolic 67–86; PULSE 76–100; RESP 15–19; TEMP 36.4–37.6; O2SAT 93–98
[2018-11-08] MEDS: INSULIN ASPART 100 UNIT/ML INSULN PEN SUBCUT ×3 (03:00→18:11)
[2018-11-08] MEDS: SODIUM CHLORIDE 0.9% 1,000 ML 200 ML IV (04:25)
[2018-11-08 06:26] LABS: Hematocrit 33.5 % (36-46); Hemoglobin 11.5 g/dL (12.0-16.0); Mean Corpuscular HGB Conc 34.4 % (30-36); Mean Corpuscular Volume 95.7 fL (80-100); Platelet Count 241 X10^3/uL (150-400); Red Cell Distribution Width 13.4 % (11.6-14.8); White Blood Cell Count 5.6 X10^3/uL (4.5-11.0)
[2018-11-08 06:27] LABS: Blood Urea Nitrogen 6 mg/dL (7-17); Calcium 7.5 mg/dL (8.4-10.2); Carbon Dioxide 23 mmol/L (22-32); Chloride 104 mmol/L (98-107); Estimated Glomerular Filt Rate > 60.0 mL/min (>60); Glucose 183 mg/dL (80-110); HEMOLYSIS < 15 (0-50); Magnesium 2.3 mg/dL (1.6-2.3); Potassium 3.1 mmol/L (3.4-5.1)
[2018-11-08 06:29] LABS: Add Manual Diff / Slide Review YES
[2018-11-08 06:45] LABS: Sodium 138 mmol/L (137-145)
[2018-11-08 07:25] LABS: Lipase 329 U/L (23-300)
[2018-11-08 07:53] LABS: Triglycerides 1882 mg/dL (35-150)
[2018-11-08 07:57] LABS: Neutrophils Absolute Manual 3416 /uL (3000-5900); RBC Morphology Normal Morphology; Total Cells Counted 100
[2018-11-08] MEDS: SODIUM CHLORIDE 0.9% 1,000 ML 100 ML IV ×2 (10:26→20:08)
[2018-11-08] MEDS: ENOXAPARIN 40 MG/0.4 ML SYRINGE SUBCUT (10:32)
[2018-11-08] MEDS: INFLUENZA VACCINE 0.5 ML SYRINGE IM (10:33)
[2018-11-08] MEDS: CALCIUM GLUCONATE 4.65 MEQ in SODIUM CHLORIDE 0.9% 50 ML 120 ML IV (11:29)
--- NOTE | 2018-11-08 11:57 | PM.PN.1 ---
Subjective Date Patient Seen: 11/08/18 Time Patient Seen: 09:58 Interval history: Patient is sitting up on the side of the bed this morning. She is very happy about the decrease in her pain and the improvement in her labs. When asked however pain is compared to when she came in she said dramatically different. She is able to walk and move about the room. Continues to have pain but is manageable at this time. Her last bowel movement was on Saturday prior to admission. She has had nothing by mouth since that time. Continues to pass flat us. We discussed the source of her pancreatitis. I asked her about what the blood look like when it was drawn on Saturday and she tells me that it looked muddy. Exam Vital Signs (past 8 hours): - 11/08/18 04:48 11/08/18 08:40 11/08/18 10:21 Temperature 98.2 F 98.1 F Pulse Rate 96 H 88 Respiratory Rate 16 18 Blood Pressure 159/82 H 149/67 H Pulse Oximetry 95 93 93 Oxygen Delivery Method Room Air Oxygen Flow Rate 0 Narrative Exam Narrative: General: Well-developed, well-nourished, female, no acute distress. Heart: Regular rate and rhythm, no murmurs appreciated Lungs: Clear to auscultation bilaterally, no wheezes, rales or rhonchi Abd: BS+, soft, diffusely tender upper abdomen Extremities: Warm and well perfused, no edema Objective Labs Result Diagrams: 11/08/18 06:03 11/08/18 06:03 Labs: Laboratory Results - last 24 hr 11/07/18 11/08/18 11/08/18 14:20 06:03 06:03 WBC 5.6 RBC 3.50 L Hgb 11.5 L Hct 33.5 L MCV 95.7 D MCH 33.0 MCHC 34.4 RDW 13.4 Plt Count 241 Neut % (Auto) Not Reportable Lymph % (Auto) Not Reportable [place] % (Auto) Not Reportable Eos % (Auto) Not Reportable Baso % (Auto) Not Reportable Lymph # (Auto) Not Reportable [place] # (Auto) Not Reportable Baso # (Auto) Not Reportable Total Counted 100 Seg Neutrophils % 17.0 L Band Neutrophils % 44.0 H Lymphocytes % (Manual) 19.0 L Monocytes % (Manual) 9.0 Eosinophils % (Manual) 2.0 Basophils % (Manual) 7.0 H Metamyelocytes % 2.0 H Neutrophils # (Manual) 3416 RBC Morphology Normal morphology Sodium 136 L Potassium 3.4 Chloride 104 Carbon Dioxide 22 BUN 6 L Creatinine 0.40 L Estimated GFR > 60.0 BUN/Creatinine Ratio 15.0 Glucose 154 H Calcium 6.9 L Magnesium 2.2 Triglycerides Lipase 329 H D 11/08/18 11/08/18 06:03 06:03 WBC RBC Hgb Hct MCV MCH MCHC RDW Plt Count Neut % (Auto) Lymph % (Auto) [place] % (Auto) Eos % (Auto) Baso % (Auto) Lymph # (Auto) [place] # (Auto) Baso # (Auto) Total Counted Seg Neutrophils % Band Neutrophils % Lymphocytes % (Manual) Monocytes % (Manual) Eosinophils % (Manual) Basophils % (Manual) Metamyelocytes % Neutrophils # (Manual) RBC Morphology Sodium 138 Potassium 3.1 L Chloride 104 Carbon Dioxide 23 BUN 6 L Creatinine 0.50 L Estimated GFR > 60.0 BUN/Creatinine Ratio 12.0 Glucose 183 H Calcium 7.5 L Magnesium 2.3 Triglycerides 1882 H Lipase Assessment & Plan Assessment & Plan narrative: 1. Acute Pancreatitis- from hypertriglyceridemia. She has had significant improvement in both her triglycerides and lipase today. Calcium and potassium are down today. Magnesium has normalized. Will replete both her calcium and magnesium and recheck tomorrow morning. She has been afebrile and continues to improve. Will lower to have sips and chips. Will continue lower dose of normal saline at 100 mL/hr. Repeat lab work in the morning. 2. Hypertriglyceridemia. Improving. Therefore more aggressive therapy such as a pheresis or even IV insulin are probably not indicated. Patient is receiving insulin appropriately so which will help drive down her triglycerides as well as control of blood sugar. I have increased the insulin dose slightly given her persistent mild hyperglycemia. If necessary some IV dextrose could be infused as she certainly needs to continue with insulin to help treat to the triglycerides. When patient is clearly improving I would restart her statin therapy and her fibrate therapy orally. I suspect that her hypertriglyceridemia is likely a combination of her underlying metabolic disorder, poorly controlled diabetes, and some element of alcohol ingestion and perhaps other factors that have yet to be elucidated. 3. Asthma. Restarted her controller advair and prn albuterol. This was discussed at length with patient and her spouse who is present in the room with her as well Code status: full code DVT prophylaxis: lovenox Disposition: home when she is tolerating PO, likely another 48-72 hours. Quality VTE Deep Vein Thrombosis/Pulmonary Embolism Present on Admission: No
[2018-11-08] MEDS: POTASSIUM CHLORIDE 40 MEQ in SODIUM CHLORIDE 0.9% 500 ML 130 ML IV (12:09)
[2018-11-08] MEDS: ALBUTEROL HFA 60 PUFF/8 GM INH INH ×2 (12:55→21:14)
[2018-11-08] MEDS: FLUTICASONE/SALMETEROL 250/50 14 PUFF DISKUS INH ×3 (13:21→13:29)
--- NOTE | 2018-11-08 14:20 | PT.IPTN ---
Current Diagnoses Acute pancreatitis without necrosis or infection, unspecified (11/06/18) Physical Therapy Treatment Note M2 PT-IP Current Condition Start: 11/06/18 12:10 Freq: NEEDED Status: Active Protocol: Document 11/06/18 13:39 AB (Rec: 11/06/18 14:38 AB [id number]) Physical Therapy Current Condition Current Condition Evaluation Date 11/06/18 Treatment Diagnosis pancreatitis; difficulty in walking Onset Date 11/06/18 Precautions Other Precautions NPO M3 PT-IP Subjective Start: 11/06/18 12:10 Freq: NEEDED Status: Active Protocol: Document 11/08/18 14:20 RCC (Rec: 11/08/18 15:35 RCC [id number]) Subjective Physical Therapy Visit Type Type Treatment Note Visit Start Time 14:20 Visit Stop Time 14:32 Total Visit Minutes 12 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 Therapy Pain Assessment Pain Present Pain Present Denied Pain M4 PT-IP Mobility and Gait Start: 11/06/18 12:10 Freq: NEEDED Status: Active Protocol: Document 11/08/18 14:20 RCC (Rec: 11/08/18 15:35 RCC [id number]) PT-Bed Mobility Assessment Supine to Sit Supine to Sit Standby Assistance Sit to Supine Sit to Supine Standby Assistance Scooting Scooting to Edge of Bed Independent PT-Transfer Assessment Sit to and From Stand Sit to and from Stand Contact Guard Assistance Equipment Transfer Assistive Device None Gait Belt Front Wheeled Walker Transfers Transfer Destination Bed Transfer Ability Level of Assist Contact Guard Assistance 1 Person Assistance Use of Upper Extremities Comments Mobility Comments Pt with increased forward lean with initial rise to standing . Gait Assessment Gait Gait Assistance Required: Contact Guard Assist 1 Person Assist Distance (Feet) 60 Assistive Devices Assistive Device Gait Belt Front Wheeled Walker Orthotic/Prosthetic Devices or Brace: No Gait Deviations General Gait Pattern Decreased Stride Length Factors Limiting Gait Function Factors Limiting Gait Function Decreased Activity Tolerance Poor Balance Poor Safety Awareness Comments Gait Comments Pt with c/o fatigue after ~30 ft of gait, turned back to room. O2 saturation 95% on RA and [place] 95 bpm after gait. M5 PT-IP Objective Assessments Start: 11/06/18 12:10 Freq: NEEDED Status: Active Protocol: Document 11/08/18 14:20 RCC (Rec: 11/08/18 15:35 [facility] [id number]) Orientation Orientation/Cognition Comments sligtht to mild impaired level of alertness with mobility, decreased safety awareness. M6 PT-IP Treatment Start: 11/06/18 12:10 Freq: NEEDED Status: Active Protocol: Document 11/08/18 14:20 RCC (Rec: 11/08/18 15:35 [facility] [id number]) Physical Therapy Treatment Exercises Exercises Ankle Pumps Quad Sets M7 PT-IP Assessment and Plan Start: 11/06/18 12:10 Freq: NEEDED Status: Active Protocol: Document 11/08/18 14:20 RCC (Rec: 11/08/18 15:35 [facility] [id number]) PT Summary Assessment and Plan Summary Assessment Summary Pt able to ambulate 60 ft with FWW and CGA, but fatigued after ambulating 30 ft and required return back to room. Pain more under control this session, but pt still with decrease level of alertness during session, requiring increased cuing to remain safe with mobility. Goals Bed Mobility Goal Independent Transfer Goal Independent Front Wheeled Walker Gait Goal Independent Front Wheel Walker Gait Distance 250 Other Goals up/down 2 steps with R rail ascending SBA Days to Meet Goals 5 Treatment Plan Other Recommendations and Next Treatment progress gait, stairs when Focus able Recommendations To Nursing Amount of Assist Needed 1 Person Assist Discharge Recommendations PT Discharge Recommendations Home with Assistance Equipment Needed for Home Before likely FWW Discharge
[2018-11-08] MEDS: INSULIN GLARGINE 100 UNIT/ML 3ML PEN 14 UNIT SUBCUT (20:37)
[2018-11-08] MEDS: HYDROMORPHONE PCA (6MG/30ML) 6 MG/30 ML PCA.VIAL IV (20:37)
[2018-11-09] VITALS (10 sets, daily range): BP systolic 145–166; BP diastolic 78–91; PULSE 70–85; RESP 16–20; TEMP 36.7–37.4; O2SAT 95–99
--- NOTE | 2018-11-09 | DI.CT.S_ITS ---
PROCEDURE: CT ABDOMEN PELVIS W CON INDICATIONS: pancreatitis, distended abd, ileus? TECHNIQUE: After the administration of oral and intravenous contrast, 5 mm thick sections acquired from the diaphragms to the symphysis. 5 mm thick coronal and sagittal reformats were performed. For radiation dose reduction, the following was used: automated exposure control, adjustment of mA and/or kV according to patient size. COMPARISON: [facility], CT, CT ABDOMEN PELVIS W CON, 11/05/2018, 22:07. FINDINGS: Image quality: Excellent. ABDOMEN: Lung bases: There are new small bilateral pleural effusions, left greater than right, with associated compressive atelectasis. Heart size is normal. Solid organs: Evaluation of the liver demonstrates no focal hepatic lesions. There is hypoattenuation of the liver suggestive of fatty infiltration. The gallbladder is distended without calcified gallstones or wall thickening. No biliary duct dilatation. There is peripancreatic fat stranding and fluid consistent with acute pancreatitis. No nonenhancing components to suggest necrosis. No discrete loculated fluid collections to suggest a pseudocyst. No pancreatic duct dilatation. Spleen is normal in size and enhancement. No adrenal nodules. Kidneys are normal in size and enhancement, without hydronephrosis. Peritoneum and bowel: Stomach, small bowel, and colon loops are normal in caliber and wall thickness. There is colonic diverticulosis without acute diverticulitis. No evidence of appendicitis. There is a small to moderate amount of intraperitoneal free fluid along the pancreas with tracking inferiorly along the anterior pararenal spaces and paracolic gutters bilaterally into the pelvis. No free air. Nodes and vessels: No retroperitoneal or mesenteric adenopathy. Aorta and inferior vena cava are normal in caliber. Miscellaneous: No ventral hernias. PELVIS: Genitourinary: Bladder wall thickness is normal. The uterus is atrophic in size. There is fluid distention of the endometrium. Miscellaneous: No inguinal hernias or adenopathy. Bones: No suspicious bony lesions. No vertebral body compression fractures. IMPRESSION: 1. Findings consistent with acute pancreatitis without evidence of necrosis or pseudocyst. No pancreatic duct dilatation. 2. Increased associated fluid tracking along the pancreas, anterior pararenal spaces, and paracolic gutters. 3. No evidence of bowel obstruction or dilated bowel loops to suggest an ileus. 4. Fluid distention of the endometrium is nonspecific. Recommend further evaluation with pelvic ultrasound. Dictated by: Pillo Fontenot M.D. on 11/09/2018 at 11:51 Approved by: Pillo Fontenot M.D. on 11/09/2018 at 11:55
--- NOTE | 2018-11-09 03:32 | PC.NURSE ---
0300 C/O PETER, states not really that bad, just annoying. cold compress to forehead & encouraged to use her Dilaudid TIRE BAGGER. Will cont. POC & monitor.
[2018-11-09] MEDS: SODIUM CHLORIDE 0.9% 1,000 ML 100 ML IV (06:18)
[2018-11-09 08:05] LABS: Add Manual Diff / Slide Review NO; Basophils Absolute Auto 0 /uL (0-100); Basophils Percent Auto 0.4 % (0-2); Eosinophils Absolute Auto 200 /uL (0-450); Eosinophils Percent Auto 2.2 % (2-4); Hematocrit 29.7 % (36-46); Hemoglobin 10.1 g/dL (12.0-16.0); Lymphocytes Absolute Auto 1300 /uL (1100-4500); Lymphocytes Percent Auto 18.8 % (25-40); Mean Corpuscular HGB Conc 34.2 % (30-36); Mean Corpuscular Hemoglobin 32.3 PG (26-34); Mean Corpuscular Volume 94.5 fL (80-100); Monocytes Absolute Auto 900 /uL (0-900); Monocytes Percent Auto 12.9 % (3-14); Neutrophils Absolute Auto 4700 /uL (1500-7000); Neutrophils Percent Auto 65.7 % (50-75); Platelet Count 246 X10^3/uL (150-400); Red Blood Cell Count 3.14 X10^6/uL (4.0-5.2); Red Cell Distribution Width 13.8 % (11.6-14.8); White Blood Cell Count 7.1 X10^3/uL (4.5-11.0)
[2018-11-09] MEDS: ALBUTEROL HFA 60 PUFF/8 GM INH INH (08:05)
[2018-11-09] MEDS: FLUTICASONE/SALMETEROL 250/50 14 PUFF DISKUS INH (08:06)
[2018-11-09 08:15] LABS: Alanine Aminotransferase 68 IU/L (9-52); Albumin 3.3 g/dL (3.5-5.0); Alkaline Phosphatase 171 U/L (38-126); Aspartate Aminotransferase 95 IU/L (14-36); BUN Creatinine Ratio 12.5 (6-22); Bilirubin Total 1.2 mg/dL (0.2-1.3); Blood Urea Nitrogen 5 mg/dL (7-17); Calcium 8.1 mg/dL (8.4-10.2); Carbon Dioxide 25 mmol/L (22-32); Chloride 100 mmol/L (98-107); Estimated Glomerular Filt Rate > 60.0 mL/min (>60); Globulin 3.2 g/dL (1.7-4.1); Glucose 129 mg/dL (80-110); HEMOLYSIS < 15 (0-50); Lipase 123 U/L (23-300); Magnesium 2.2 mg/dL (1.6-2.3); Potassium 3.1 mmol/L (3.4-5.1); Sodium 136 mmol/L (137-145); Total Protein 6.5 g/dL (6.3-8.2)
[2018-11-09 08:32] LABS: Triglycerides 1096 mg/dL (35-150)
[2018-11-09] MEDS: ENOXAPARIN 40 MG/0.4 ML SYRINGE SUBCUT (09:02)
--- NOTE | 2018-11-09 10:01 | PT.IPTN ---
Current Diagnoses Acute pancreatitis without necrosis or infection, unspecified (11/06/18) Physical Therapy Treatment Note M2 PT-IP Current Condition Start: 11/06/18 12:10 Freq: NEEDED Status: Active Protocol: Document 11/06/18 13:39 AB (Rec: 11/06/18 14:38 AB [id number]) Physical Therapy Current Condition Current Condition Evaluation Date 11/06/18 Treatment Diagnosis pancreatitis; difficulty in walking Onset Date 11/06/18 Precautions Other Precautions NPO M3 PT-IP Subjective Start: 11/06/18 12:10 Freq: NEEDED Status: Active Protocol: Document 11/09/18 10:01 RCC (Rec: 11/09/18 10:23 RCC [id number]) Subjective Physical Therapy Visit Type Type Treatment Note Visit Start Time 10:01 Visit Stop Time 10:15 Total Visit Minutes 14 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 M4 PT-IP Mobility and Gait Start: 11/06/18 12:10 Freq: NEEDED Status: Active Protocol: Document 11/09/18 10:01 RCC (Rec: 11/09/18 10:23 RCC [id number]) PT-Bed Mobility Assessment Supine to Sit Supine to Sit Independent Scooting Scooting to Edge of Bed Independent PT-Transfer Assessment Sit to and From Stand Sit to and from Stand Standby Assistance Equipment Transfer Assistive Device None Gait Belt Front Wheeled Walker Transfers Transfer Destination Bed Transfer Ability Level of Assist Standby Assistance Use of Upper Extremities Gait Assessment Gait Gait Assistance Required: Standby Assistance 1 Person Assist Distance (Feet) 80 Assistive Devices Assistive Device Gait Belt Front Wheeled Walker Factors Limiting Gait Function Factors Limiting Gait Function Decreased Activity Tolerance Poor Balance Comments Gait Comments denied pain in LEs with gait, does admit to fatigue M5 PT-IP Objective Assessments Start: 11/06/18 12:10 Freq: NEEDED Status: Active Protocol: Document 11/09/18 10:01 RCC (Rec: 11/09/18 10:23 RCC [id number]) Other Assessments Other Other Assessments Warm R foot and calf to touch; no redness or pain with palpation of foot or calf on the R. M6 PT-IP Treatment Start: 11/06/18 12:10 Freq: NEEDED Status: Active Protocol: Document 11/08/18 14:20 RCC (Rec: 11/08/18 15:35 [facility] [id number]) Physical Therapy Treatment Exercises Exercises Ankle Pumps Quad Sets M7 PT-IP Assessment and Plan Start: 11/06/18 12:10 Freq: NEEDED Status: Active Protocol: Document 11/09/18 10:01 [facility] (Rec: 11/09/18 10:23 [facility] [id number]) PT Summary Assessment and Plan Summary Assessment Summary Pt progressed gait tolerance this morning using a FWW. Fatigue most limiting factor today, but O2 saturation 99% and [place] 91 bpm after gait this session. She requested to sit and dangle on EOB at end of session, okayed by RN. Pt will need to complete stair training, but expect if she continues to improve to be able to return home when medically stable. Discussed with RN about R foot and calf temperature difference compared to the L. Goals Bed Mobility Goal Independent Transfer Goal Independent Front Wheeled Walker Gait Goal Independent Front Wheel Walker Gait Distance 250 Other Goals up/down 2 steps with R rail ascending SBA Days to Meet Goals 5 Frequency of Treatment Frequency Of Treatment Once a Day Treatment Plan Other Recommendations and Next Treatment gait and stairs Focus Recommendations To Nursing Amount of Assist Needed 1 Person Assist Discharge Recommendations PT Discharge Recommendations Home with Assistance Equipment Needed for Home Before likely FWW Discharge
--- NOTE | 2018-11-09 12:11 | PM.PN.1 ---
Subjective Date Patient Seen: 11/09/18 Time Patient Seen: 10:11 Interval history: Patient is lying in bed today. Has used a minimal amount of pain medications. Nursing tells me that she forgets to pressor button. She feels like she is more distended and puffy today. Breathing has improved since we restarted her inhalers yesterday. Exam Vital Signs (past 8 hours): - 11/09/18 04:30 11/09/18 08:00 11/09/18 08:25 Temperature 98.9 F 98.2 F Pulse Rate 82 81 70 Respiratory Rate 16 18 20 Blood Pressure 145/78 H 166/91 H Pulse Oximetry 97 97 97 11/09/18 08:55 Temperature Pulse Rate Respiratory Rate Blood Pressure Pulse Oximetry 97 Oxygen Delivery Method Room Air Oxygen Flow Rate 0 Narrative Exam Narrative: General: Well-developed, well-nourished, female, no acute distress. Heart: Regular rate and rhythm, no murmurs appreciated Lungs: Clear to auscultation bilaterally, diminished in the bases, no wheezes, rales or rhonchi Abd: BS+, soft, mildly distended, tympanic to percussion, exquisitely tender at Alanis's point, positive for rebound and guarding Extremities: Warm and well perfused, puffy but without pitting Objective Imaging CT scan - abdomen: Radiologist's impression: IMPRESSION: 1. Findings consistent with acute pancreatitis without evidence of necrosis or pseudocyst. No pancreatic duct dilatation. 2. Increased associated fluid tracking along the pancreas, anterior pararenal spaces, and paracolic gutters. 3. No evidence of bowel obstruction or dilated bowel loops to suggest an ileus. 4. Fluid distention of the endometrium is nonspecific. Recommend further evaluation with pelvic ultrasound. Labs Result Diagrams: 11/09/18 07:45 11/09/18 07:45 Labs: Laboratory Results - last 24 hr 11/09/18 11/09/18 07:45 07:45 WBC 7.1 RBC 3.14 L Hgb 10.1 L Hct 29.7 L MCV 94.5 MCH 32.3 MCHC 34.2 RDW 13.8 Plt Count 246 Neut % (Auto) 65.7 Lymph % (Auto) 18.8 L [place] % (Auto) 12.9 Eos % (Auto) 2.2 Baso % (Auto) 0.4 Neut # (Auto) 4700 Lymph # (Auto) 1300 [place] # (Auto) 900 Eos # (Auto) 200 Baso # (Auto) 0 Sodium 136 L Potassium 3.1 L Chloride 100 Carbon Dioxide 25 BUN 5 L Creatinine 0.40 L Estimated GFR > 60.0 BUN/Creatinine Ratio 12.5 Glucose 129 H Calcium 8.1 L Magnesium 2.2 Total Bilirubin 1.2 AST 95 H ALT 68 H Alkaline Phosphatase 171 H D Total Protein 6.5 Albumin 3.3 L Globulin 3.2 Albumin/Globulin Ratio 1.0 Triglycerides 1096 H Lipase 123 D Assessment & Plan Assessment & Plan narrative: 1. Acute Pancreatitis- from hypertriglyceridemia. She has had significant improvement in both her triglycerides and lipase today. Lipase is return to normal. potassium is down today despite repletion overnight. Magnesium has normalized. Will start her on TPN today. She has been afebrile however her right upper quadrant pain has worsened. Imaging concerning for an acute cholecystitis. No signs of biliary obstruction at this time and there were no gallstones on her initial imaging. Will continue with sips and chips. Repeat lab work in the morning. 2. Acute acalculous cholecystitis. Will check a procalcitonin level and start antibiotics if elevated. Have consulted surgery who will see her today. HIDA scan would determine if the gallbladder is draining or not however this cannot be done today. She is currently afebrile and hemodynamically stable. Would have a low threshold to transfer. 3. Hypertriglyceridemia. Improving. Therefore more aggressive therapy such as a pheresis or even IV insulin are probably not indicated. Patient is receiving insulin appropriately so which will help drive down her triglycerides as well as control of blood sugar. When patient is clearly improving will restart her statin therapy and her fibrate therapy orally. I suspect that her hypertriglyceridemia is likely a combination of her underlying metabolic disorder, poorly controlled diabetes, and some element of alcohol ingestion and perhaps other factors that have yet to be elucidated which have been discussed with patient. 4. Diabetes. Will place insulin in her TPN and cover with sliding scale. 5. Asthma. Continue her controller advair and prn albuterol. 6. Pleural effusions. will add incentive spirometry and encourage movement. Monitor. This was discussed at length with patient and her spouse who is present in the room with her as well Code status: full code DVT prophylaxis: lovenox Disposition: home when she is tolerating PO, likely another 48-72 hours. Quality VTE Deep Vein Thrombosis/Pulmonary Embolism Present on Admission: No
[2018-11-09] MEDS: INSULIN ASPART 100 UNIT/ML INSULN PEN SUBCUT ×2 (13:18→23:59)
[2018-11-09 13:55] LABS: Procalcitonin 0.27 ng/mL (<0.5)
--- NOTE | 2018-11-09 14:09 | P.CONS_ITS ---
History of Present Illness Date Patient Seen: 11/09/18 Time Patient Seen: 13:49 Chief complaint: states severe upper abdominal pain and back ache Reason for consult: Pancreatitis and possible acalculous cholecystitis Requesting provider: Bre Mendieta Narrative: 62-year-old female admitted several days ago with epigastric abdominal pain found to be consistent with pancreatitis secondary to hypertriglyceridemia who developed some progressive right upper quadrant abdominal pain today on physical examination. She has been treated over the last several days with bowel rest other than clear liquids yesterday, IV fluid resuscitation, and monitoring. Given the patient's increased tenderness and pain on examination a follow-up CT scan was obtained today demonstrating possible acalculous cholecystitis in an otherwise distended but unremarkable gallbladder. On further history today patient denies any symptoms consistent with biliary colic in the past. She has remote history many years ago of some epigastric pain lasting 2 or 3 days that she reports is somewhat similar to her current episode but not quite as severe then spontaneously resolved. In fact, she never saw her physician at that time. When she presented to the emergency department several days ago she was having significant epigastric pain radiating to the midback region. She had nausea and vomiting as well. No hematemesis. She has been passing flatus since admission but no bowel movement. Her last bowel movement was several days ago. She denies any dark brown urine, acholic stools, or jaundice at any time. Denies any significant alcohol intake. She has some persistent intermittent mild nausea but no vomiting over the last 48 hr or so. No dysuria or hematuria. No subjective fever or chills. No chest pain, but she does find it somewhat difficult to have a deep inspiratory effort due to exacerbation of her pain. No subjective shortness of breath. She does feel markedly distended throughout the abdomen however. Her pain is exacerbated when trying to get out of bed, but when she is upright and ambulating the pain subsides some extent. She is currently on LATIN DANCER for pain control which appears effective. She is not particularly hungry. FOR[facility]LY [facility] Medical History Hyperlipidemia (Acute) Hypertension (Acute) Surgical History Status post surgery (01/10/10) Status post tubal ligation Family History Brother Age: 63 Hypertension Mother Kidney failure Sister Age: 70 Hypertension Social History household members: spouse Smoking Status: Never smoker alcohol intake: current Family History Brother Age: 63 Hypertension Mother Kidney failure Sister Age: 70 Hypertension Social History household members: spouse Smoking Status: Never smoker alcohol intake: current Meds Home Medications Medication Instructions Recorded Confirmed Type CA PANTOTHENATE/FOLIC ACID/VIT 1 tab PO Q DAY #0 05/23/11 11/06/18 History (MULTIVITAMIN) atorvastatin 80 mg PO HS #90 tab 05/05/18 11/06/18 Rx fenofibrate nanocrystallized 145 mg PO HS #90 tab 05/05/18 11/06/18 Rx [Tricor] metformin 500 mg tablet 500 mg PO BIDCC #180 tab 10/13/18 11/06/18 Rx olopatadine 0.1 % eye drops 1 drop EYE-BOTH Q DAY #5 ml 10/15/18 11/06/18 Rx Advair Diskus 1 inhalation INHALATION QAM 11/06/18 11/06/18 History clobetasol 0 % TOPICAL PRN PRN 11/06/18 11/06/18 History Allergies Allergy/AdvReac Type Severity Reaction Status Date / Time No Known Drug Allergies Allergy Verified 11/05/18 20:46 Review of Systems Review of Systems All systems reviewed & are unremarkable except as noted in HPI and below Exam Vital Signs (past 8 hours): - 11/09/18 08:00 11/09/18 08:25 11/09/18 08:55 Temperature 98.2 F Pulse Rate 81 70 Respiratory Rate 18 20 Blood Pressure 166/91 H Pulse Oximetry 97 97 97 11/09/18 12:00 Temperature 98.1 F Pulse Rate 83 Respiratory Rate 18 Blood Pressure 149/81 H Pulse Oximetry 99 Oxygen Delivery Method Room Air Oxygen Flow Rate 0 Narrative Exam Narrative: Well-nourished well-developed female lying in bed in no acute distress but she does appear mildly uncomfortable. She prefers to lie supine without moving significantly due to some exacerbation of her pain. is at the bedside for my entire visit as well. Patient has had no fevers since admission. Current temperature 98.2?. No tachycardia at any time since admission. Intermittently mildly hypertensive. Room air saturation 97%. Sclera nonicteric Chest clear to auscultation bilaterally although her inspiratory effort is somewhat diminished. Breath sounds are diminished at the bases bilaterally but no crackles or wheezes anywhere throughout. Regular rate and rhythm. Abdomen is markedly distended and tympanitic but generally soft. She does have a few hypoactive bowel sounds. She is significantly tender in the epigastric region and tender in the right upper quadrant but not as remarkable as the epigastric subxiphoid area. Nontender elsewhere. No guarding or rebound. Extremities show no clubbing or cyanosis. She does have +1 edema throughout her extremities. The edema is consistent with her 9 L fluid resuscitation to date. Objective Labs Result Diagrams: 11/09/18 07:45 11/09/18 07:45 Labs: Laboratory Results - last 24 hr 11/09/18 11/09/18 07:45 07:45 WBC 7.1 RBC 3.14 L Hgb 10.1 L Hct 29.7 L MCV 94.5 MCH 32.3 MCHC 34.2 RDW 13.8 Plt Count 246 Neut % (Auto) 65.7 Lymph % (Auto) 18.8 L [place] % (Auto) 12.9 Eos % (Auto) 2.2 Baso % (Auto) 0.4 Neut # (Auto) 4700 Lymph # (Auto) 1300 [place] # (Auto) 900 Eos # (Auto) 200 Baso # (Auto) 0 Sodium 136 L Potassium 3.1 L Chloride 100 Carbon Dioxide 25 BUN 5 L Creatinine 0.40 L Estimated GFR > 60.0 BUN/Creatinine Ratio 12.5 Glucose 129 H Calcium 8.1 L Magnesium 2.2 Total Bilirubin 1.2 AST 95 H ALT 68 H Alkaline Phosphatase 171 H D Total Protein 6.5 Albumin 3.3 L Globulin 3.2 Albumin/Globulin Ratio 1.0 Triglycerides 1096 H Lipase [address] scan of the abdomen and pelvis at admission and again today. She also had abdominal ultrasound. I have personally reviewed all 3 of these studies. Initial CT scan was consistent with pancreatitis but no significant ascites or pelvic fluid. Gallbladder and liver appeared normal. No ductal dilatation. No free air. Bowel loops were unremarkable. Repeat CT scan today shows progression of peripancreatic inflammation but again no evidence of abscess or necrosis. No pancreatic ductal dilatation. No pancreatic calcifications. No free air. Intra-abdominal fluid including the bilateral pericolic gutters, mesentery, and pelvis shows significant progression of free fluid in these areas. The gallbladder is distended but again has no calcified gallstones. Previous ultrasound showed no gallstones as well. No biliary ductal dilatation. Gallbladder wall does not appear to be particularly thickened or e dematous. Mildly dilated bowel loops consistent with ileus. Assessment & Plan Assessment & Plan narrative: 62-year-old female with pancreatitis secondary to hypertriglyceridemia complicated by diabetes. She has no evidence of gallstone pancreatitis, and her history would suggest no significant risk of alcoholic pancreatitis. Fortunately she has no evidence of sepsis, pancreatic necrosis, or pancreatic abscess. No evidence of chronic pancreatitis. Small possibility of acalculous cholecystitis, but I suspect that this is mainly consistent with perihepatic and pericholecystic inflammation from the pancreatitis itself. Gallbladder is most likely distended due to NPO status. I agree, however, that HIDA scan would be indicated to completely evaluate for possible acalculous cholecystitis. If she had evidence of acalculous cholecystitis then I would treat conservatively. There would be no current indication for surgery given her significant pancreatitis and abdominal distention at the moment. Although she is afebrile and has normal white blood cell count she may benefit from antibiotics such as imipenem, especially if the HIDA scan is positive for acalculous cholecystitis. If she did not respond to antibiotics then percutaneous cholecystostomy tube under Interventional Radiology may be indicated. I would recommend PICC line placement and institution of TPN as soon as possible since I anticipate that she will not be able to take any significant oral nutrition for some time. Obviously, avoid lipids or other source of fats in her case. Recommend ongoing DVT prophylaxis as well as proton pump inhibitor therapy. Would also recommend following her procalcitonin and CRP levels as well as LDH in addition to her CBC, amylase, lipase, and complete metabolic panel. Would follow her urine output closely and maintain strict I/O records as an indication of her volume status. I spent some time discussing the natural history and pathophysiology of pancreatitis and possibly acalculous cholecystitis with the patient and her . Overall I suspect she will respond to conservative measures as above. However, I did mention to them that her pancreatitis could worsen and her overall clinical condition could deteriorate which may necessitate transfer to a higher level to tertiary center, especially if she had evidence of pancreatic abscess or necrosis. All questions were answered to her satisfaction, and the patient voiced understanding. We will continue to follow her during this admission.
[2018-11-09] MEDS: PANTOPRAZOLE 40 MG VIAL IV (14:25)
[2018-11-09] MEDS: DEXTROSE 5%-NS W/KCL 20MEQ 1,000 ML 100 MEQ IV (14:37)
--- NOTE | 2018-11-09 15:36 | CM.DPC ---
DCP/cont Patient met with Dr. Shaver and will begin conservative measures to address pancreatitis. She will have PICC line placed and TPN started. Followed up with patient and spouse: both were relieved patient did not need surgery. No needs at this time. Goal remains to discharge home. Discussed ETOH usage per previous notes. Both in agreement that pt.'s alcohol intake is not of concern and that patient is looking into changing her dietary and alcohol habits due to pancreatitis. Patient and spouse decline community resources at this time.
[2018-11-09] MEDS: INSULIN GLARGINE 100 UNIT/ML 3ML PEN 14 UNIT SUBCUT (21:46)
[2018-11-10] VITALS (9 sets, daily range): BP systolic 166–184; BP diastolic 82–94; PULSE 81–86; RESP 13–16; TEMP 36.9–37.1; O2SAT 95–98
--- NOTE | 2018-11-10 | DI.NM.S_ITS ---
PROCEDURE: NM HIDA WITH CCK PHARMACEUTICAL: 5.1 mCi Tc-99m mebrofenin IV; 1.6 mcg CCK IV. INDICATIONS: Pain, pancreatitis ? gb disease TECHNIQUE: Following intravenous administration of Tc-99m mebrofenin, sequential anterior abdominal images were obtained. To evaluate the contractile response of the gallbladder in response to Cholecystokinin (CCK), sincalide (0.02 ?g/kg) was administered by slow intravenous infusion approximately 60 minutes after the administration of the radiopharmaceutical. Sequential imaging was continued for 30 minutes after the start of CCK infusion. Gallbladder ejection fraction was calculated. COMPARISON: [facility], CT, CT ABDOMEN PELVIS W CON, 11/09/2018, 10:39. [facility], US, US ABDOMEN COMPLETE, 11/05/2018, 23:28. FINDINGS: Biliary scan: There is normal tracer uptake and excretion by the liver. There is normal visualization of the intrahepatic ducts, common bile duct, and gallbladder. There is normal tracer transit into the duodenum. CCK stimulation: There is near absent contractile response of the gallbladder to CCK infusion. The calculated gallbladder ejection fraction is 2%; normal values are above 35%. It has been shown that any patient abdominal pain after CCK administration is related to the rate of CCK injection, rather than to any underlying gallbladder disease (Clinical Nuclear Medicine 2012; 37: 63-70. Journal of Nuclear Medicine 2014; 55: 1-9). IMPRESSION: Abnormal low gallbladder ejection fraction. Finding can be due to chronic cholecystitis, biliary dyskinesia, sphincter of Oddi dysfunction or obstructing lesion including choledocholithiasis. Dictated by: Claudia Wolf MD, PhD on 11/10/2018 at 17:03 Approved by: Claudia Wolf MD, PhD on 11/10/2018 at 17:07
[2018-11-10] MEDS: DEXTROSE 5%-NS W/KCL 20MEQ 1,000 ML 100 MEQ IV (00:05)
[2018-11-10] MEDS: HYDROMORPHONE PCA (6MG/30ML) 6 MG/30 ML PCA.VIAL IV (05:51)
[2018-11-10 06:01] LABS: Alanine Aminotransferase 66 IU/L (9-52); Albumin 3.4 g/dL (3.5-5.0); Albumin Globulin Ratio 1.1 (1.0-2.8); Alkaline Phosphatase 157 U/L (38-126); Aspartate Aminotransferase 62 IU/L (14-36); BUN Creatinine Ratio 7.5 (6-22); Bilirubin Total 0.8 mg/dL (0.2-1.3); Blood Urea Nitrogen 3 mg/dL (7-17); Calcium 8.4 mg/dL (8.4-10.2); Carbon Dioxide 28 mmol/L (22-32); Chloride 99 mmol/L (98-107); Estimated Glomerular Filt Rate > 60.0 mL/min (>60); Globulin 3.1 g/dL (1.7-4.1); Glucose 192 mg/dL (80-110); HEMOLYSIS < 15 (0-50); Lactate Dehydrogenase 467 U/L (313-618); Lipase 109 U/L (23-300); Magnesium 1.9 mg/dL (1.6-2.3); Sodium 136 mmol/L (137-145); Total Protein 6.5 g/dL (6.3-8.2)
[2018-11-10] MEDS: INSULIN ASPART 100 UNIT/ML INSULN PEN SUBCUT ×3 (06:01→19:33)
[2018-11-10 06:06] LABS: Triglycerides 622 mg/dL (35-150)
[2018-11-10 06:12] LABS: C-Reactive Protein Quant 21.5 mg/dL (<1.0)
[2018-11-10 06:52] LABS: Hemoglobin 10.7 g/dL (12.0-16.0); Mean Corpuscular HGB Conc 34.5 % (30-36); Mean Corpuscular Hemoglobin 32.4 PG (26-34); Mean Corpuscular Volume 93.9 fL (80-100); Platelet Count 285 X10^3/uL (150-400); Red Cell Distribution Width 13.4 % (11.6-14.8); White Blood Cell Count 8.2 X10^3/uL (4.5-11.0)
[2018-11-10 07:00] LABS: Procalcitonin 0.16 ng/mL (<0.5)
[2018-11-10 07:32] LABS: Add Manual Diff / Slide Review YES
[2018-11-10 07:41] LABS: Neutrophils Absolute Manual 4838 /uL (3000-5900); Total Cells Counted 100
[2018-11-10 07:43] LABS: RBC Morphology Normal Morphology
[2018-11-10] MEDS: ENOXAPARIN 40 MG/0.4 ML SYRINGE SUBCUT (08:55)
[2018-11-10] MEDS: PANTOPRAZOLE 40 MG VIAL IV (08:55)
[2018-11-10] MEDS: DEXTROSE 5%-NS W/KCL 20MEQ 1,000 ML 75 MEQ IV (10:05)
--- NOTE | 2018-11-10 10:11 | P.PN_ITS ---
Subjective Date Patient Seen: 11/10/18 Time Patient Seen: 10:06 Interval history: Pancreatitis Patient feeling somewhat better. Requiring very little intravenous pain medication. No nausea. No vomiting. Passing some gas rectally. Abdomen seems to be ?rumbling? no bowel movement. Normal urine. Has retained some fluid peripherally. Exam Vital Signs (past 8 hours): - 11/10/18 05:53 11/10/18 07:40 11/10/18 08:00 Temperature 98.8 F 98.7 F Pulse Rate 85 81 Respiratory Rate 16 16 Blood Pressure 166/87 H 176/82 H Pulse Oximetry 96 96 97 Oxygen Delivery Method Room Air Oxygen Flow Rate 0 Narrative Exam Narrative: Patient appears to be resting quietly in bed appears in no distress. Sits up easily for added conversation. Abdomen has very few bowel sounds but they are present in generally tender with no rebound Lungs are clear heart regular rhythm no murmur gallop Objective Labs Result Diagrams: 11/10/18 05:38 11/10/18 05:38 Labs: Laboratory Results - last 24 hr 11/09/18 11/10/18 11/10/18 07:45 05:38 05:38 WBC 8.2 RBC 3.30 L Hgb 10.7 L Hct 31.0 L MCV 93.9 MCH 32.4 MCHC 34.5 RDW 13.4 Plt Count 285 Neut % (Auto) Not Reportable Lymph % (Auto) Not Reportable [place] % (Auto) Not Reportable Eos % (Auto) Not Reportable Baso % (Auto) Not Reportable Lymph # (Auto) Not Reportable [place] # (Auto) Not Reportable Baso # (Auto) Not Reportable Total Counted 100 Seg Neutrophils % 50.0 D Band Neutrophils % 9.0 H Lymphocytes % (Manual) 11.0 L Atypical Lymphs % 1.0 H Monocytes % (Manual) 22.0 H Eosinophils % (Manual) 1.0 L Metamyelocytes % 4.0 H Myelocytes % 2.0 H Neutrophils # (Manual) 4838 RBC Morphology Normal morphology Sodium 136 L Potassium 3.0 L Chloride 99 Carbon Dioxide 28 BUN 3 L Creatinine 0.40 L Estimated GFR > 60.0 BUN/Creatinine Ratio 7.5 Glucose 192 H Calcium 8.4 Magnesium 1.9 Total Bilirubin 0.8 AST 62 H ALT 66 H Alkaline Phosphatase 157 H Lactate Dehydrogenase 467 C-Reactive Protein 21.5 H Total Protein 6.5 Albumin 3.4 L Globulin 3.1 Albumin/Globulin Ratio 1.1 Triglycerides 622 H Lipase 109 Procalcitonin 0.27 11/10/18 05:38 WBC RBC Hgb Hct MCV MCH MCHC RDW Plt Count Neut % (Auto) Lymph % (Auto) [place] % (Auto) Eos % (Auto) Baso % (Auto) Lymph # (Auto) [place] # (Auto) Baso # (Auto) Total Counted Seg Neutrophils % Band Neutrophils % Lymphocytes % (Manual) Atypical Lymphs % Monocytes % (Manual) Eosinophils % (Manual) Metamyelocytes % Myelocytes % Neutrophils # (Manual) RBC Morphology Sodium Potassium Chloride Carbon Dioxide BUN Creatinine Estimated GFR BUN/Creatinine Ratio Glucose Calcium Magnesium Total Bilirubin AST ALT Alkaline Phosphatase Lactate Dehydrogenase C-Reactive Protein Total Protein Albumin Globulin Albumin/Globulin Ratio Triglycerides Lipase Procalcitonin 0.16 Today's labs are reviewed. Of significance is her hypokalemia. This will be replaced. Of also significance is the normal white blood cell count, and normal lipase. The triglycerides have improved significantly. And calcium has improved. Assessment & Plan Assessment & Plan narrative: 1. Pancreatitis has improved significantly. As stated above a presumption is from hypertriglyceridemia. This is also improved. Eventually patient will need referral to lipid specialist for reassessment of her lipids. 2. Question about whether and the gallbladder is involved. HIDA scan forthcom ing. Presumably the anticipated plan will be if there is abnormality of the gallbladder be a high and this can she will be transferred for percutaneous drainage of the gallbladder and gallbladder bed to be done elsewhere. If the HIDA scan is normal this will be unnecessary. 3. Nutrition status still remains a questionable if the patient has a normal HIDA scan presumably this to be acute process of which case of TPN may not be necessary. If it looks is going to be a long drawn out process then we will commence same. For the time being TPN and a PICC line will be placed on hold pending the HIDA scan. 4. Hypokalemia being treated. 5. Ileus as stable she does not appear to have a bowel obstruction presumably the list will be resolving forthcoming. 6. Diabetes management appears adequate. 7. We may also get a feel for significance of the inflammation patient will be off narcotics for 6 hr prior to the HIDA scan and a pending on how she does without narcotics as that will be a clue as to the significance of her persistent pancreatitis yet to be determined Quality VTE Deep Vein Thrombosis/Pulmonary Embolism Present on Admission: No
[2018-11-10] MEDS: POTASSIUM CHLORIDE 60 MEQ in SODIUM CHLORIDE 0.9% 500 ML 88.333 ML IV (11:14)
--- NOTE | 2018-11-10 11:32 | PT.IPTN ---
Current Diagnoses Acute pancreatitis without necrosis or infection, unspecified (11/06/18) Physical Therapy Treatment Note M2 PT-IP Current Condition Start: 11/06/18 12:10 Freq: NEEDED Status: Active Protocol: Document 11/06/18 13:39 AB (Rec: 11/06/18 14:38 AB [id number]) Physical Therapy Current Condition Current Condition Evaluation Date 11/06/18 Treatment Diagnosis pancreatitis; difficulty in walking Onset Date 11/06/18 Precautions Other Precautions NPO M3 PT-IP Subjective Start: 11/06/18 12:10 Freq: NEEDED Status: Active Protocol: Document 11/10/18 11:18 NFW (Rec: 11/10/18 11:32 NFW [id number]) Subjective Physical Therapy Visit Type Type Treatment Note Visit Start Time 10:50 Visit Stop Time 11:15 Total Visit Minutes 25 Number of UTILITIES SERVICE INVESTIGATOR Visits 0 Physical Therapy Visit Comments Patient Comments Continues to feel inflated. No real pain. Would like to be able to eat or drink. Therapy Pain Assessment Pain When Pain Assessed At Rest Pain Present Pain Present Denied Pain M4 PT-IP Mobility and Gait Start: 11/06/18 12:10 Freq: NEEDED Status: Active Protocol: Document 11/10/18 11:18 NFW (Rec: 11/10/18 11:32 NFW [id number]) PT-Bed Mobility Assessment Supine to Sit Supine to Sit Independent Sit to Supine Sit to Supine Independent Scooting Scooting to Edge of Bed Independent PT-Transfer Assessment Sit to and From Stand Sit to and from Stand Standby Assistance Equipment Transfer Assistive Device None Gait Belt Front Wheeled Walker Transfers Transfer Destination Bed Toilet Transfer Ability Level of Assist Standby Assistance 1 Person Assistance Use of Upper Extremities Comments Mobility Comments Relies on UEs to stand from sitting. Good safety with transition. Gait Assessment Gait Gait Assistance Required: Standby Assistance 1 Person Assist Distance (Feet) 120 Assistive Devices Assistive Device Gait Belt Front Wheeled Walker Orthotic/Prosthetic Devices or Brace: No Gait Deviations General Gait Pattern Decreased Stride Length Flexed Trunk Factors Limiting Gait Function Factors Limiting Gait Function Decreased Activity Tolerance Decreased Strength Poor Balance Comments Gait Comments No c/o pain LEs with ambulation. Main concern of fatigue. Was able to walk a little farther. Stair Climbing Assessment Comments Stair Climbing Comments Did not feel that she had the strength and energy to try stairs today. M5 PT-IP Objective Assessments Start: 11/06/18 12:10 Freq: NEEDED Status: Active Protocol: Document 11/09/18 10:01 RCC (Rec: 11/09/18 10:23 RCC [id number]) Other Assessments Other Other Assessments Warm R foot and calf to touch; no redness or pain with palpation of foot or calf on the R. M6 PT-IP Treatment Start: 11/06/18 12:10 Freq: NEEDED Status: Active Protocol: Document 11/10/18 11:18 NFW (Rec: 11/10/18 11:32 NFW [id number]) Physical Therapy Treatment Exercises Exercises Ankle Pumps Gluteal Sets Quad Sets Other Treatments Other Treatment Performed Mini bridges Instructed to perform a few repetitions of each exercise at the top of each hour that she is awake. Able to perform all exercises with no complaints of pain. Assured normal breathing while doing exercises. M7 PT-IP Assessment and Plan Start: 11/06/18 12:10 Freq: NEEDED Status: Active Protocol: Document 11/10/18 11:18 NFW (Rec: 11/10/18 11:32 NFW [id number]) PT Summary Assessment and Plan Summary Impairments Strength Balance Gait Activity Tolerance Assessment Summary Pt revealed improved tolerance to ambulation and exercises this am. Has concerns of swelling into both ankles. Encouraged performance of LEs exercises frequently throughout the day. Goals Bed Mobility Goal Independent Transfer Goal Independent Front Wheeled Walker Gait Goal Independent Front Wheel Walker Gait Distance 250 Other Goals up/down 2 steps with R rail ascending SBA Days to Meet Goals 5 Frequency of Treatment Frequency Of Treatment Once a Day Treatment Plan Physical Therapy Treatment Plan Gait Training Therapeutic Exercise Balance Retraining Coordination Retraining Other Recommendations and Next Treatment Increase gait distance. Stair Focus climbing. Recommendations To Nursing Amount of Assist Needed 1 Person Assist Discharge Recommendations PT Discharge Recommendations Home with Assistance Equipment Needed for Home Before likely FWW Discharge
--- NOTE | 2018-11-10 12:46 | PM.PN.1 ---
Subjective Date Patient Seen: 11/10/18 Time Patient Seen: 12:46 Interval history: Passing small amount of flatus but no bowel movement. No nausea or vomiting currently. Remains NPO except ice chips minimally. Denies any subjective fever chills. No new chest pain or shortness of breath. Continues to have epigastric and right upper quadrant abdominal pain however. Remains significantly distended subjectively. No dysuria or hematuria. Pain controlled. Exam Vital Signs (past 8 hours): - 11/10/18 05:53 11/10/18 07:40 11/10/18 08:00 Temperature 98.8 F 98.7 F Pulse Rate 85 81 Respiratory Rate 16 16 Blood Pressure 166/87 H 176/82 H Pulse Oximetry 96 96 97 11/10/18 12:00 Temperature 98.5 F Pulse Rate 84 Respiratory Rate 16 Blood Pressure 182/91 H Pulse Oximetry 97 Oxygen Delivery Method Room Air Oxygen Flow Rate 0 Narrative Exam Narrative: Lying in bed in no acute distress. Alert oriented x3. However, she continues to maintain a supine position as much as possible as attempting to arise from the bed causes some exacerbation of her pain. Remains afebrile with no tachycardia. Blood pressure normal. Adequate urine output. No crackles or wheezes Abdomen again is markedly distended and tympanitic throughout. She is slightly more tender in the right upper quadrant today with a marginally positive Alanis sign. No guarding or rebound elsewhere however. No masses. Extremities show no clubbing or cyanosis. Edema remains stable. Objective Labs Result Diagrams: 11/10/18 05:38 11/10/18 05:38 Labs: Laboratory Results - last 24 hr 11/09/18 11/10/18 11/10/18 07:45 05:38 05:38 WBC 8.2 RBC 3.30 L Hgb 10.7 L Hct 31.0 L MCV 93.9 MCH 32.4 MCHC 34.5 RDW 13.4 Plt Count 285 Neut % (Auto) Not Reportable Lymph % (Auto) Not Reportable [place] % (Auto) Not Reportable Eos % (Auto) Not Reportable Baso % (Auto) Not Reportable Lymph # (Auto) Not Reportable [place] # (Auto) Not Reportable Baso # (Auto) Not Reportable Total Counted 100 Seg Neutrophils % 50.0 D Band Neutrophils % 9.0 H Lymphocytes % (Manual) 11.0 L Atypical Lymphs % 1.0 H Monocytes % (Manual) 22.0 H Eosinophils % (Manual) 1.0 L Metamyelocytes % 4.0 H Myelocytes % 2.0 H Neutrophils # (Manual) 4838 RBC Morphology Normal morphology Sodium 136 L Potassium 3.0 L Chloride 99 Carbon Dioxide 28 BUN 3 L Creatinine 0.40 L Estimated GFR > 60.0 BUN/Creatinine Ratio 7.5 Glucose 192 H Calcium 8.4 Magnesium 1.9 Total Bilirubin 0.8 AST 62 H ALT 66 H Alkaline Phosphatase 157 H Lactate Dehydrogenase 467 C-Reactive Protein 21.5 H Total Protein 6.5 Albumin 3.4 L Globulin 3.1 Albumin/Globulin Ratio 1.1 Triglycerides 622 H Lipase 109 Procalcitonin 0.27 11/10/18 05:38 WBC RBC Hgb Hct MCV MCH MCHC RDW Plt Count Neut % (Auto) Lymph % (Auto) [place] % (Auto) Eos % (Auto) Baso % (Auto) Lymph # (Auto) [place] # (Auto) Baso # (Auto) Total Counted Seg Neutrophils % Band Neutrophils % Lymphocytes % (Manual) Atypical Lymphs % Monocytes % (Manual) Eosinophils % (Manual) Metamyelocytes % Myelocytes % Neutrophils # (Manual) RBC Morphology Sodium Potassium Chloride Carbon Dioxide BUN Creatinine Estimated GFR BUN/Creatinine Ratio Glucose Calcium Magnesium Total Bilirubin AST ALT Alkaline Phosphatase Lactate Dehydrogenase C-Reactive Protein Total Protein Albumin Globulin Albumin/Globulin Ratio Triglycerides Lipase Procalcitonin 0.16 Procalcitonin is normal. However, she has a bandemia with an otherwise normal white blood cell count. Liver function tests are not markedly elevated and bilirubin is normal. Creatinine is stable. Assessment & Plan Assessment & Plan narrative: 62-year-old female with pancreatitis and possible acalculous cholecystitis. Agree with [facility] HIDA scan this afternoon as ordered. I believe she would be a candidate for PICC line and TPN without lipids at this point since she will not have any significant oral nutrition for the foreseeable future until the pancreatitis resolves. Her ileus will need to resolve as well as the pancreatitis subsides. No evidence of necrosis or pancreatic abscess at this point. However, she may require antibiotics if she has evidence of acalculous cholecystitis. Would also consider possible image guided placement of percutaneous cholecystostomy tube if the HIDA scan shows cholecystitis. At this point I would not recommend cholecystectomy in the context of significant pancreatitis. I discussed all the above with the patient and her in detail again today. Questions were answered to her satisfaction, and she voiced understanding. Await HIDA scan results and monitor closely. Quality VTE Deep Vein Thrombosis/Pulmonary Embolism Present on Admission: No
--- NOTE | 2018-11-10 19:00 | DI.RAD.S_ITS ---
PROCEDURE: XR CHEST 1V INDICATIONS: picc line placement TECHNIQUE: One view of the chest was acquired. COMPARISON: None. FINDINGS: Surgical changes and devices: There is a right PICC with the tip in the area of SVC. Lungs and pleura: There is left basilar infiltrate or atelectasis. A small left pleural effusion is present. No pneumothorax. Mediastinum: Mediastinal contours appear normal. Heart size is normal. Bones and chest wall: No suspicious bony lesions. Overlying soft tissues appear unremarkable. IMPRESSION: 1. The tip of the right PICC is in the area of SVC. 2. Small left restriction with left basilar infiltrate or atelectasis. Dictated by: Jany Strauss M.D. on 11/10/2018 at 19:47 Approved by: Jany Strauss M.D. on 11/10/2018 at 19:48
[2018-11-10] MEDS: AA 5 %/CALCIUM/LYTES/DEXT 20 % 1,000 ML with MULTIVITAMIN 10 ML, TRACE ELEMENTS 1 ML, I... 41.667 ML IV (19:32)
[2018-11-11] VITALS (11 sets, daily range): BP systolic 159–180; BP diastolic 70–95; PULSE 83–91; RESP 16–18; TEMP 36.6–37.3; O2SAT 94–98
[2018-11-11] MEDS: INSULIN ASPART 100 UNIT/ML INSULN PEN SUBCUT ×4 (00:13→18:03)
--- NOTE | 2018-11-11 00:17 | PC.NURSE ---
1500- assumed care of pt from outgoing shift. PT awake and alert. Pt going to hida scan. IV SL. PT bp elevated. md pena called about PICC line and asked about BP and no new orders rec'd. 1700- pt arrived back to room. hooked back up to fluids and INSULATION WORKER. pt used INSULATION WORKER quite a bit right back. PT did have loose BM. Pt felt a bit better after that. Pt in bed. calls. bed alarm on on as pt shifts weight frequently and bed alarm sounds, but pt is A&Ox3 and waits for assistance. TPN initiated after DI nurse placed PICC line. around 730 pm. pt stated it went well and didn't really even feel it. pt cooperative with staff. friend in to visit with patient. fluids infusing. Pt up with sba to void. Pt use call light. bed in lowest, locked position. pt tolerating TPN. will continue to monitor.
[2018-11-11] MEDS: HYDROMORPHONE PCA (6MG/30ML) 6 MG/30 ML PCA.VIAL IV ×2 (05:47→15:23)
[2018-11-11 06:35] LABS: Hematocrit 30.9 % (36-46); Hemoglobin 10.4 g/dL (12.0-16.0); Mean Corpuscular HGB Conc 33.6 % (30-36); Mean Corpuscular Hemoglobin 31.6 PG (26-34); Mean Corpuscular Volume 94.2 fL (80-100); Platelet Count 308 X10^3/uL (150-400); Red Blood Cell Count 3.28 X10^6/uL (4.0-5.2); White Blood Cell Count 7.9 X10^3/uL (4.5-11.0)
[2018-11-11 06:36] LABS: Add Manual Diff / Slide Review YES
[2018-11-11 06:40] LABS: BUN Creatinine Ratio 12.5 (6-22); Blood Urea Nitrogen 5 mg/dL (7-17); Calcium 8.7 mg/dL (8.4-10.2); Carbon Dioxide 31 mmol/L (22-32); Chloride 96 mmol/L (98-107); Estimated Glomerular Filt Rate > 60.0 mL/min (>60); Glucose 219 mg/dL (80-110); HEMOLYSIS < 15 (0-50); Magnesium 1.9 mg/dL (1.6-2.3)
[2018-11-11 06:56] LABS: Sodium 136 mmol/L (137-145)
[2018-11-11 06:57] LABS: Potassium 2.6 mmol/L (3.4-5.1)
[2018-11-11 07:09] LABS: Neutrophils Absolute Manual 5214 /uL (3000-5900); Nucleated Red Blood Cells 1 #/Diff; Total Cells Counted 100
[2018-11-11 07:10] LABS: RBC Morphology Normal Morphology
--- NOTE | 2018-11-11 09:03 | P.PN_ITS ---
Subjective Date Patient Seen: 11/11/18 Time Patient Seen: 08:58 Interval history: Pancreatitis. Feeling better requiring very little narcotic. Does not need to continues. We will use intermittent PC as needed. No nausea no vomiting decreasing the abdominal distension decreasing abdominal discomfort but still present. Passing gas. Apparently had a bowel movement last night that the had some form to it. No blood no melena patient feeling better in general. Taking ice chips only and tolerating this well. Edema of her hands have decreased somewhat. Exam Vital Signs (past 8 hours): - 11/11/18 03:15 11/11/18 07:30 Temperature 98.6 F 98.1 F Pulse Rate 89 91 H Respiratory Rate 16 16 Blood Pressure 163/90 H 164/94 H Pulse Oximetry 95 96 Oxygen Delivery Method Room Air Oxygen Flow Rate 0 Narrative Exam Narrative: Patient is resting quietly in her bed appears in no distress. Lungs are clear heart regular rhythm. Abdominal exam few bowel sounds. Clearly LEs distention less tense fair amount of discomfort mid epigastrium primarily and somewhat right upper quadrant no rebound trace edema of her hands Objective Labs Result Diagrams: 11/11/18 06:08 11/11/18 06:08 Labs: Laboratory Results - last 24 hr 11/11/18 11/11/18 06:08 06:08 WBC 7.9 RBC 3.28 L Hgb 10.4 L Hct 30.9 L MCV 94.2 MCH 31.6 MCHC 33.6 RDW 14.0 Plt Count 308 Neut % (Auto) Not Reportable Lymph % (Auto) Not Reportable [place] % (Auto) Not Reportable Eos % (Auto) Not Reportable Baso % (Auto) Not Reportable Lymph # (Auto) Not Reportable [place] # (Auto) Not Reportable Baso # (Auto) Not Reportable Total Counted 100 Seg Neutrophils % 44.0 Band Neutrophils % 22.0 H Lymphocytes % (Manual) 7.0 L Atypical Lymphs % 4.0 H Monocytes % (Manual) 20.0 H Eosinophils % (Manual) 3.0 Neutrophils # (Manual) 5214 Nucleated RBCs 1 H RBC Morphology Normal morphology Sodium 136 L Potassium 2.6 L* Chloride 96 L Carbon Dioxide 31 BUN 5 L Creatinine 0.40 L Estimated GFR > 60.0 BUN/Creatinine Ratio 12.5 Glucose 219 H Calcium 8.7 Magnesium 1.9 Labs reviewed as above. Of significance is her persistent hypokalemia. SOB replaced again today. No evidence for infection based on normal white count. Patient had a HIDA scan that showed that the gallbladder did fill but had a very low ejection fraction consistent with being NPO Assessment & Plan Assessment & Plan narrative: 1. Pancreatitis again presumably from hyp ertriglyceridemia. Symptoms have improved significantly. Laboratory studies have improved lipase normal white count normal renal function normal 2. Secondary ileus patient continued to pass gas and has a bowel movement. Impression being that the ileus is improving but still present will continue on NPO for the time being patient was started on TPN last night and presumably will be on this for approximately a week. 3. Hypokalemia presumably potassium is being 3rd space in her abdomen. We will replace intravenously. 4. Hypertension persists will start her on low-dose of lisinopril 5 mg daily she is taking ice chips social better handle pill. 5. Diabetes management is adequate. Discussed with patient the likelihood of compliance with insulin injections as an outpatient we both agree is unlikely. We will continue her on current program with sliding scale when she is tolerating oral feedings better will. Resume her oral medication for diabetes. 6. HIDA scan reassuring. Discussed case with Dr. Shaver his impression was there was no need for intervention with percutaneous drainage etc. Currently no evidence for infection so antibiotics not necessary things to watch for this will be her procalcitonin her white count is be ordered for tomorrow 7. Patient likely be here through the weekend today being Saturday yet to be determined Quality VTE Deep Vein Thrombosis/Pulmonary Embolism Present on Admission: No
[2018-11-11] MEDS: ENOXAPARIN 40 MG/0.4 ML SYRINGE SUBCUT (09:52)
[2018-11-11] MEDS: POTASSIUM CHLORIDE 80 MEQ in SODIUM CHLORIDE 0.9% 1,000 ML 130 ML IV (10:18)
[2018-11-11] MEDS: LISINOPRIL 5 MG TABLET PO (10:20)
[2018-11-11] MEDS: PANTOPRAZOLE 40 MG VIAL IV (11:32)
[2018-11-11] MEDS: FLUTICASONE/SALMETEROL 250/50 14 PUFF DISKUS INH (11:50)
--- NOTE | 2018-11-11 12:04 | PT.IPTN ---
Current Diagnoses Acute pancreatitis without necrosis or infection, unspecified (11/06/18) Physical Therapy Treatment Note M2 PT-IP Current Condition Start: 11/06/18 12:10 Freq: NEEDED Status: Active Protocol: Document 11/06/18 13:39 AB (Rec: 11/06/18 14:38 AB [id number]) Physical Therapy Current Condition Current Condition Evaluation Date 11/06/18 Treatment Diagnosis pancreatitis; difficulty in walking Onset Date 11/06/18 Precautions Other Precautions NPO M3 PT-IP Subjective Start: 11/06/18 12:10 Freq: NEEDED Status: Active Protocol: Document 11/11/18 10:15 CLB (Rec: 11/11/18 12:04 CLB [email or web address]) Subjective Physical Therapy Visit Type Type Treatment Note Visit Start Time 10:15 Visit Stop Time 10:38 Total Visit Minutes 23 Number of EMPLOYEE RELATIONS ASSISTANT Visits 1 Physical Therapy Visit Comments Patient Comments Pt wanting to take a walk in [place]. Therapy Pain Assessment Pain When Pain Assessed At Rest Pain Present Pain Present Denied Pain M4 PT-IP Mobility and Gait Start: 11/06/18 12:10 Freq: NEEDED Status: Active Protocol: Document 11/11/18 10:15 CLB (Rec: 11/11/18 12:04 CLB [email or web address]) PT-Transfer Assessment Sit to and From Stand Sit to and from Stand Standby Assistance Equipment Transfer Assistive Device None Gait Belt Front Wheeled Walker Transfers Transfer Destination Bed Transfer Ability Level of Assist Standby Assistance 1 Person Assistance Use of Upper Extremities Gait Assessment Gait Gait Assistance Required: Standby Assistance 1 Person Assist Distance (Feet) 230 Assistive Devices Assistive Device Gait Belt Front Wheeled Walker Orthotic/Prosthetic Devices or Brace: No Gait Deviations General Gait Pattern Decreased Stride Length Flexed Trunk Factors Limiting Gait Function Factors Limiting Gait Function Decreased Activity Tolerance Decreased Strength Comments Gait Comments Pt able to increase ambulation to ~230ft. Pt ambulates slowly with good safety awareness and balance. Stair Climbing Assessment Evaluation Level of Assist On Stairs Standby Assistance Devices Stair Climbing Assistive Devices Right Railing Technique/Endurance Stair Climbing Direction Ascend and Descend Stair Climbing Technique Step to Step Number of Steps Climbed 3 Query Text: Stair Climbing Set # Repetitions (reps) 1 Comments Stair Climbing Comments Pt able to climb three steps using step to step sequencing and use of R rail. M5 PT-IP Objective Assessments Start: 11/06/18 12:10 Freq: NEEDED Status: Active Protocol: Document 11/09/18 10:01 RCC (Rec: 11/09/18 10:23 RCC [id number]) Other Assessments Other Other Assessments Warm R foot and calf to touch; no redness or pain with palpation of foot or calf on the R. M6 PT-IP Treatment Start: 11/06/18 12:10 Freq: NEEDED Status: Active Protocol: Document 11/10/18 11:18 NFW (Rec: 11/10/18 11:32 NFW [id number]) Physical Therapy Treatment Exercises Exercises Ankle Pumps Gluteal Sets Quad Sets Other Treatments Other Treatment Performed Mini bridges Instructed to perform a few repetitions of each exercise at the top of each hour that she is awake. Able to perform all exercises with no complaints of pain. Assured normal breathing while doing exercises. M7 PT-IP Assessment and Plan Start: 11/06/18 12:10 Freq: NEEDED Status: Active Protocol: Document 11/11/18 10:15 CLB (Rec: 11/11/18 12:04 CLB [email or web address]) PT Summary Assessment and Plan Summary Impairments Strength Balance Gait Activity Tolerance Assessment Summary Pt with increased endurance was able to ambulate ~230ft w/ FWW/SBA, Pt able to climb 3 steps SBA. Goals Bed Mobility Goal Independent Transfer Goal Independent Front Wheeled Walker Gait Goal Independent Front Wheel Walker Gait Distance 250 Other Goals up/down 2 steps with R rail ascending SBA Days to Meet Goals 5 Frequency of Treatment Frequency Of Treatment Once a Day Treatment Plan Physical Therapy Treatment Plan Gait Training Therapeutic Exercise Balance Retraining Coordination Retraining Other Recommendations and Next Treatment progress stairs. Focus Recommendations To Nursing Amount of Assist Needed 1 Person Assist Discharge Recommendations PT Discharge Recommendations Home with Assistance Equipment Needed for Home Before likely FWW Discharge
--- NOTE | 2018-11-11 13:55 | PC.NURSE ---
Addendum entered by Carol Verde R.N. 11/11/18 14:42: ENGINE COWLING INSTALLER Dilaudid per Dr. Diamond conversation this AM, continue with ENGINE COWLING INSTALLER intermittent and discontinue basal rate. ENGINE COWLING INSTALLER continued throughout shift. ENGINE COWLING INSTALLER Dilaudid Shift total was 1.6mg=8mls. Original Note: Shift- Update given to Dr. Diamond at 0830. Made aware of trending HTN, pt request to not have basal rate on ENGINE COWLING INSTALLER and critical potassium lab value of 2.6. Dr. Diamond to place new orders. Lisinopril 5mg given at 1025, pre vitals were 174/95, pulse 86, upon recheck at 1145, BP was 160/88 and pulse 90, pt asymptomatic. ENGINE COWLING INSTALLER Dilaudid basal rate of 0.1mg/hr D/C at 1025. Potassium Chloride 80meq infusion started at 1020 per order through PICC line.
--- NOTE | 2018-11-11 17:29 | PM.PN.1 ---
Subjective Date Patient Seen: 11/11/18 Time Patient Seen: 17:30 Interval history: Patient states she is feeling better. Less distended. Pain has significantly subsided. No nausea or vomiting. Appetite starting to return. She is passing a small amount of flatus. No bowel movement however. No dysuria or hematuria. Ambulating better today with less discomfort. Denies any chest pain or shortness of breath. No subjective fevers. Exam Vital Signs (past 8 hours): - 11/11/18 10:15 11/11/18 10:20 11/11/18 12:00 Temperature 97.9 F Pulse Rate 86 87 Respiratory Rate 16 Blood Pressure 174/95 H 160/88 H Pulse Oximetry 94 98 11/11/18 15:40 11/11/18 16:00 Temperature 98.0 F Pulse Rate 91 H Respiratory Rate 16 Blood Pressure 169/70 H Pulse Oximetry 97 97 Oxygen Delivery Method Room Air Oxygen Flow Rate 0 Narrative Exam Narrative: Well-nourished well-developed female in no acute distress. Alert oriented x3. Ambulating in the room at the time of my visit and returns to bed easily without significant discomfort. No fevers No tachycardia and blood pressure stable Good urine output Chest clear to auscultation bilaterally. No crackles or wheezes Abdomen remains significantly distended and tympanitic but softer today. She is much less tender in the right upper quadrant and epigastric region as well. No Alanis sign. No guarding or rebound. No masses. Extremities show no clubbing or cyanosis Objective Labs Result Diagrams: 11/11/18 06:08 11/11/18 06:08 Labs: Laboratory Results - last 24 hr 11/11/18 11/11/18 06:08 06:08 WBC 7.9 RBC 3.28 L Hgb 10.4 L Hct 30.9 L MCV 94.2 MCH 31.6 MCHC 33.6 RDW 14.0 Plt Count 308 Neut % (Auto) Not Reportable Lymph % (Auto) Not Reportable [place] % (Auto) Not Reportable Eos % (Auto) Not Reportable Baso % (Auto) Not Reportable Lymph # (Auto) Not Reportable [place] # (Auto) Not Reportable Baso # (Auto) Not Reportable Total Counted 100 Seg Neutrophils % 44.0 Band Neutrophils % 22.0 H Lymphocytes % (Manual) 7.0 L Atypical Lymphs % 4.0 H Monocytes % (Manual) 20.0 H Eosinophils % (Manual) 3.0 Neutrophils # (Manual) 5214 Nucleated RBCs 1 H RBC Morphology Normal morphology Sodium 136 L Potassium 2.6 L* Chloride 96 L Carbon Dioxide 31 BUN 5 L Creatinine 0.40 L Estimated GFR > 60.0 BUN/Creatinine Ratio 12.5 Glucose 219 H Calcium 8.7 Magnesium 1.9 [facility] HIDA scan done last evening is personally review. I actually discussed the results with Dr. Diamond last night. The gallbladder fills with contrast appropriately. Ejection fraction is markedly diminished. However, the dyskinesias most likely due to the peripancreatic inflammatory changes and her prolonged NPO status. Overall, the study would be normal under the circumstances with no evidence of acute cholecystitis. Assessment & Plan Assessment & Plan narrative: 62-year-old female with pancreatitis secondary to hypertriglyceridemia but no evidence of acute cholecystitis, abscess, or pancreatic necrosis. Overall she is improving. She has no fevers or leukocytosis at this time. Therefore I agree with no antibiotics at this stage. I would anticipate that her status will continue to improve slowly over the next several days. Continue to recommend NPO status except ice chips for now. TPN without lipids is indicated for at least several more days. When she is ready for oral intake will start with clear liquids and slowly advance to a bland low-fat diet as tolerated. I spent some considerable time this evening discussing the natural history and pathophysiology of pancreatitis and provided some anatomic diagrams to clarify her pathology. All questions were answered to her satisfaction, and she voiced understanding. We will continue to follow her closely. Quality VTE Deep Vein Thrombosis/Pulmonary Embolism Present on Admission: No
[2018-11-11] MEDS: AA 5 %/CALCIUM/LYTES/DEXT 20 % 1,000 ML with MULTIVITAMIN 10 ML, TRACE ELEMENTS 1 ML, I... 41.667 ML IV (18:05)
[2018-11-11 19:09] LABS: HEMOLYSIS < 15 (0-50); Potassium 3.6 mmol/L (3.4-5.1)
[2018-11-11] MEDS: SODIUM CHLORIDE 0.9% 500 ML 21 ML IV (19:34)
--- NOTE | 2018-11-11 21:25 | PC.NURSE ---
1500- assumed care of pt from outgoing shift. pt reports PCS takes care of pain. still has epigastric tenderness to palpation. Pt calls and waits for assistance. will continue to monitor pt for safety.
[2018-11-12] VITALS (10 sets, daily range): BP systolic 145–167; BP diastolic 84–88; PULSE 83–93; RESP 16–20; TEMP 36.4–37.2; O2SAT 95–98; BMI 33.8
[2018-11-12] MEDS: INSULIN ASPART 100 UNIT/ML INSULN PEN SUBCUT ×4 (00:42→19:09)
[2018-11-12] MEDS: ALBUTEROL HFA 60 PUFF/8 GM INH INH (05:53)
[2018-11-12] MEDS: FLUTICASONE/SALMETEROL 250/50 14 PUFF DISKUS INH (05:53)
[2018-11-12 06:25] LABS: BUN Creatinine Ratio 17.5 (6-22); Blood Urea Nitrogen 7 mg/dL (7-17); Calcium 8.9 mg/dL (8.4-10.2); Carbon Dioxide 31 mmol/L (22-32); Chloride 98 mmol/L (98-107); Estimated Glomerular Filt Rate > 60.0 mL/min (>60); Glucose 266 mg/dL (80-110); HEMOLYSIS < 15 (0-50); Magnesium 1.9 mg/dL (1.6-2.3); Potassium 2.9 mmol/L (3.4-5.1); Sodium 136 mmol/L (137-145)
[2018-11-12 06:34] LABS: Hematocrit 29.8 % (36-46); Hemoglobin 9.9 g/dL (12.0-16.0); Mean Corpuscular HGB Conc 33.2 % (30-36); Mean Corpuscular Hemoglobin 31.4 PG (26-34); Mean Corpuscular Volume 94.6 fL (80-100); Platelet Count 332 X10^3/uL (150-400); Red Blood Cell Count 3.15 X10^6/uL (4.0-5.2); Red Cell Distribution Width 13.6 % (11.6-14.8); White Blood Cell Count 7.8 X10^3/uL (4.5-11.0)
[2018-11-12 06:39] LABS: Add Manual Diff / Slide Review YES
[2018-11-12 06:42] LABS: Alanine Aminotransferase 39 IU/L (9-52); Albumin 3.2 g/dL (3.5-5.0); Albumin Globulin Ratio 1.1 (1.0-2.8); Alkaline Phosphatase 122 U/L (38-126); Aspartate Aminotransferase 39 IU/L (14-36); BUN Creatinine Ratio 17.5 (6-22); Bilirubin Total 0.6 mg/dL (0.2-1.3); Blood Urea Nitrogen 7 mg/dL (7-17); Calcium 8.8 mg/dL (8.4-10.2); Carbon Dioxide 31 mmol/L (22-32); Chloride 98 mmol/L (98-107); Estimated Glomerular Filt Rate > 60.0 mL/min (>60); Globulin 2.9 g/dL (1.7-4.1); Glucose 268 mg/dL (80-110); HEMOLYSIS < 15 (0-50); Lipase 174 U/L (23-300); Sodium 137 mmol/L (137-145); Total Protein 6.1 g/dL (6.3-8.2)
[2018-11-12 07:09] LABS: Procalcitonin 0.12 ng/mL (<0.5)
--- NOTE | 2018-11-12 08:37 | P.PN_ITS ---
Subjective Date Patient Seen: 11/12/18 Time Patient Seen: 08:34 Interval history: Patient had some mild pain last evening that this is diminishing. Pain is mostly in the central abdomen radiating to the back. Discomfort is currently controlled [employer]ESP[employer]PLIANCES. Appetite is slowly returning but she is not particularly hungry. She would like something to drink however. No subjective fever or chills. No nausea or vomiting. She continues to pass some mild amount of flatus but no bowel movement today or last evening. No chest pain or shortness of breath. Ambulating without difficulty. No dysuria. Exam Vital Signs (past 8 hours): - 11/12/18 04:13 11/12/18 05:55 11/12/18 08:12 Temperature 98.9 F 98.4 F Pulse Rate 88 93 H Respiratory Rate 18 16 Blood Pressure 151/86 H 160/84 H Pulse Oximetry 95 97 96 Oxygen Delivery Method Room Air Oxygen Flow Rate 0 Narrative Exam Narrative: Well-nourished well-developed female lying comfortably in bed in no acute distress. Alert oriented x3 Sclera nonicteric Chest clear to auscultation without wheezes or crackles Abdomen remains significantly distended with hypoactive bowel sounds. She is tympanitic throughout. No masses. Remains moderately tender without guarding or rebound in the epigastric and right upper quadrant region. Minimally tender elsewhere. Extremities show no clubbing or cyanosis. Trace edema bilaterally. Objective Labs Result Diagrams: 11/12/18 05:35 11/12/18 05:35 Labs: Laboratory Results - last 24 hr 11/11/18 11/12/18 11/12/18 18:50 05:35 05:35 WBC 7.8 RBC 3.15 L Hgb 9.9 L Hct 29.8 L MCV 94.6 MCH 31.4 MCHC 33.2 RDW 13.6 Plt Count 332 Neut % (Auto) Not Reportable Lymph % (Auto) Not Reportable [place] % (Auto) Not Reportable Eos % (Auto) Not Reportable Baso % (Auto) Not Reportable Lymph # (Auto) Not Reportable [place] # (Auto) Not Reportable Baso # (Auto) Not Reportable Sodium 136 L Potassium 3.6 2.9 L Chloride 98 Carbon Dioxide 31 BUN 7 Creatinine 0.40 L Estimated GFR > 60.0 BUN/Creatinine Ratio 17.5 Glucose 266 H Calcium 8.9 Magnesium 1.9 Total Bilirubin AST ALT Alkaline Phosphatase Total Protein Albumin Globulin Albumin/Globulin Ratio Lipase Procalcitonin 11/12/18 11/12/18 05:35 05:35 WBC RBC Hgb Hct MCV MCH MCHC RDW Plt Count Neut % (Auto) Lymph % (Auto) [place] % (Auto) Eos % (Auto) Baso % (Auto) Lymph # (Auto) [place] # (Auto) Baso # (Auto) Sodium 137 Potassium 3.0 L Chloride 98 Carbon Dioxide 31 BUN 7 Creatinine 0.40 L Estimated GFR > 60.0 BUN/Creatinine Ratio 17.5 Glucose 268 H Calcium 8.8 Magnesium Total Bilirubin 0.6 AST 39 H ALT 39 Alkaline Phosphatase 122 Total Protein 6.1 L Albumin 3.2 L Globulin 2.9 Albumin/Globulin Ratio 1.1 Lipase 174 D Procalcitonin 0.12 Lipase and procalcitonin are normal today. White blood cell count remains unremarkable. Electrolytes are stable other than hyperglycemia and hypokalemia to be corrected in the TPN per Medicine Service. Assessment & Plan Assessment & Plan narrative: 62-year-old female with pancreatitis secondary to hypertriglyceridemia. She remains with significant ileus due to the pancreatic inflammation. She has no evidence of acute cholecystitis however. No evidence of pancreatic necrosis or abscess either. Therefore would continue to monitor without antibiotics. Continue TPN however as I would not recommend advancing to a diet at this point to avoid stimulation of the pancreas. If she remains stable over the next 24 hr then I would allow clear liquid diet as tolerated at that point. Obviously, no lipids in TPN or orally. Would not advance diet beyond that until ileus begins to resolve. Overall, I anticipate this will be many more days given the significant amount of pancreatic inflammation seen on CT scan. I discussed all the above with the patient in detail. Questions were answered to her satisfaction, and she voiced understanding. Quality VTE Deep Vein Thrombosis/Pulmonary Embolism Present on Admission: No
[2018-11-12 08:38] LABS: Neutrophils Absolute Manual 3822 /uL (3000-5900); RBC Morphology Normal Morphology; Total Cells Counted 100
[2018-11-12] MEDS: PANTOPRAZOLE 40 MG VIAL IV (08:49)
[2018-11-12] MEDS: ENOXAPARIN 40 MG/0.4 ML SYRINGE SUBCUT (08:49)
[2018-11-12] MEDS: LISINOPRIL 5 MG TABLET PO (08:50)
--- NOTE | 2018-11-12 08:53 | PM.PN.1 ---
Subjective Date Patient Seen: 11/12/18 Time Patient Seen: 08:53 Interval history: Pancreatitis Pretty much status quo. Had slight increase in midepigastric pain last night. Requiring very little Dilaudid for pain management. Taking approximately mg Dilaudid per 8 hr shift. No nausea decrease abdominal distension decreased abdominal pain. Passing gas but no stool since the 1 a day and half ago. Has been ambulatory seem to be tolerating that well. Exam Vital Signs (past 8 hours): - 11/12/18 04:13 11/12/18 05:55 11/12/18 08:12 Temperature 98.9 F 98.4 F Pulse Rate 88 93 H Respiratory Rate 18 16 Blood Pressure 151/86 H 160/84 H Pulse Oximetry 95 97 96 Oxygen Delivery Method Room Air Oxygen Flow Rate 0 Narrative Exam Narrative: Patient is resting quietly in bed appears in no distress HEENT is normal. Lungs entirely clear. Cardiac exam regular rhythm no murmur gallop. Abdomen still distended but less so than has been. And is soft. Is still fairly tender in mid epigastrium with no rebound no guarding minimal edema of her hands Objective Labs Result Diagrams: 11/12/18 05:35 11/12/18 05:35 Labs: Laboratory Results - last 24 hr 11/11/18 11/12/18 11/12/18 18:50 05:35 05:35 WBC 7.8 RBC 3.15 L Hgb 9.9 L Hct 29.8 L MCV 94.6 MCH 31.4 MCHC 33.2 RDW 13.6 Plt Count 332 Neut % (Auto) Not Reportable Lymph % (Auto) Not Reportable [place] % (Auto) Not Reportable Eos % (Auto) Not Reportable Baso % (Auto) Not Reportable Lymph # (Auto) Not Reportable [place] # (Auto) Not Reportable Baso # (Auto) Not Reportable Total Counted 100 Seg Neutrophils % 40.0 Band Neutrophils % 9.0 H Lymphocytes % (Manual) 23.0 L Atypical Lymphs % 2.0 H Monocytes % (Manual) 21.0 H Eosinophils % (Manual) 3.0 Basophils % (Manual) 2.0 H Neutrophils # (Manual) 3822 RBC Morphology Normal morphology Sodium 136 L Potassium 3.6 2.9 L Chloride 98 Carbon Dioxide 31 BUN 7 Creatinine 0.40 L Estimated GFR > 60.0 BUN/Creatinine Ratio 17.5 Glucose 266 H Calcium 8.9 Magnesium 1.9 Total Bilirubin AST ALT Alkaline Phosphatase Total Protein Albumin Globulin Albumin/Globulin Ratio Lipase Procalcitonin 11/12/18 11/12/18 05:35 05:35 WBC RBC Hgb Hct MCV MCH MCHC RDW Plt Count Neut % (Auto) Lymph % (Auto) [place] % (Auto) Eos % (Auto) Baso % (Auto) Lymph # (Auto) [place] # (Auto) Baso # (Auto) Total Counted Seg Neutrophils % Band Neutrophils % Lymphocytes % (Manual) Atypical Lymphs % Monocytes % (Manual) Eosinophils % (Manual) Basophils % (Manual) Neutrophils # (Manual) RBC Morphology Sodium 137 Potassium 3.0 L Chloride 98 Carbon Dioxide 31 BUN 7 Creatinine 0.40 L Estimated GFR > 60.0 BUN/Creatinine Ratio 17.5 Glucose 268 H Calcium 8.8 Magnesium Total Bilirubin 0.6 AST 39 H ALT 39 Alkaline Phosphatase 122 Total Protein 6.1 L Albumin 3.2 L Globulin 2.9 Albumin/Globulin Ratio 1.1 Lipase 174 D Procalcitonin 0.12 labs reviewed as above of note lipase is returned to normal, triglycerides had decreased. Her look lytes are reasonably well controlled except for potassium which is being managed with supplements. White blood cell count remains normal Assessment & Plan Assessment & Plan narrative: 1. Pancreatitis clinically getting better. Require readily little pain medication for same and no nausea medication. Anticipation that this will resolve without any significant sequelae. 2. Secondary ileus still present. As per Dr. Shaver attempt her some clear liquids tomorrow if today goes well. Will continue on clear liquids and TPN till she is obviously improved significantly. 3. Hypertriglyceridemia improved with the above treatment when she is taking clear liquids we will commence her medications for her cholesterol and her lipids and her triglycerides. 4. Diabetes management still somewhat problematic. Will increase the dose of her sliding scale. Probably will increase the dose of the insulin in the TPN will discuss this with the pharmacist. 5. Hypokalemia improved. Again will supplement with potassium riders. And discussed with pharmacist about increasing amount of potassium in the TPN. It appears the patient will be here with several more days presumably through the weekend today being Saturday Quality VTE Deep Vein Thrombosis/Pulmonary Embolism Present on Admission: No
[2018-11-12] MEDS: POTASSIUM CHLORIDE 80 MEQ in SODIUM CHLORIDE 0.9% 1,000 ML 130 ML IV (09:30)
--- NOTE | 2018-11-12 10:03 | PC.NURSE ---
0700- Safe handoff from CORA RN. Pt resting in bed w/ Dilaudid SEARCH ADVERTISING STRATEGIST pump infusing into 2 lumen PICC on R arm. TPN infusing into second lumen. Pt is A+Ox4; denies pain; states she has had no BM & feels slightly bloated. 0800- MD ordered K+ to infuse of lab level of 3.0; waiting for pharmacy to verify this med. 0900- PO medication swallowed w/o difficulty. IV protonix admin; IV potassium hung w/ SEARCH ADVERTISING STRATEGIST (verified meds were compatible). Pt up to shower SBA w/ REAL ESTATE AGENCY LICENSEE. 1140- BG 336; 10 units insulin.
--- NOTE | 2018-11-12 13:05 | PT.IPTN ---
Current Diagnoses Acute pancreatitis without necrosis or infection, unspecified (11/06/18) Physical Therapy Treatment Note M2 PT-IP Current Condition Start: 11/06/18 12:10 Freq: NEEDED Status: Active Protocol: Document 11/06/18 13:39 AB (Rec: 11/06/18 14:38 AB [id number]) Physical Therapy Current Condition Current Condition Evaluation Date 11/06/18 Treatment Diagnosis pancreatitis; difficulty in walking Onset Date 11/06/18 Precautions Other Precautions NPO M3 PT-IP Subjective Start: 11/06/18 12:10 Freq: NEEDED Status: Active Protocol: Document 11/12/18 12:54 SA (Rec: 11/12/18 13:05 SA [id number]) Subjective Physical Therapy Visit Type Type Treatment Note Visit Start Time 12:30 Visit Stop Time 12:54 Total Visit Minutes 24 Number of PRINT LINE INSPECTOR Visits 2 Physical Therapy Visit Comments Patient Comments Pt seated at EOB and agreeable to PT. Patient Goals To return home. Therapy Pain Assessment Pain When Pain Assessed During Mobility Pain Present Pain Present Denied Pain M4 PT-IP Mobility and Gait Start: 11/06/18 12:10 Freq: NEEDED Status: Active Protocol: Document 11/12/18 12:54 SA (Rec: 11/12/18 13:05 SA [id number]) PT-Bed Mobility Assessment Supine to Sit Supine to Sit Independent Sit to Supine Sit to Supine Independent Scooting Scooting to Edge of Bed Independent Scooting Up and Down in Bed Independent PT-Transfer Assessment Sit to and From Stand Sit to and from Stand Standby Assistance Equipment Transfer Assistive Device None Gait Belt Front Wheeled Walker Orthotic/Prosthetic Devices or Brace: No Transfers Transfer Destination Bed Transfer Ability Level of Assist Standby Assistance Comments Mobility Comments Pt IND wit hbed mobility and SBA with transfers, Pt has no LOB and is steady on feet, uses FWW safely. Gait Assessment Gait Gait Assistance Required: Standby Assistance 1 Person Assist Distance (Feet) 250 Assistive Devices Assistive Device Gait Belt Front Wheeled Walker Orthotic/Prosthetic Devices or Brace: No Gait Deviations General Gait Pattern Decreased Stride Length Flexed Trunk Factors Limiting Gait Function Factors Limiting Gait Function Decreased Activity Tolerance Decreased Strength Comments Gait Comments Gait training in halls x 230 feet with FWW and SBA, min cues for posture and improving activity tolerance. Short distance ambulation in room with no AD and SBA-CGA. Stair Climbing Assessment Evaluation Level of Assist On Stairs Standby Assistance Devices Stair Climbing Assistive Devices Right Railing Technique/Endurance Stair Climbing Direction Ascend and Descend Stair Climbing Technique Step to Step Number of Steps Climbed 3 Query Text: Stair Climbing Set # Repetitions (reps) 1 Comments Stair Climbing Comments Step to gait pattern with R rail and SBA, min cues for safety. M5 PT-IP Objective Assessments Start: 11/06/18 12:10 Freq: NEEDED Status: Active Protocol: Document 11/09/18 10:01 RCC (Rec: 11/09/18 10:23 RCC [id number]) Other Assessments Other Other Assessments Warm R foot and calf to touch; no redness or pain with palpation of foot or calf on the R. M6 PT-IP Treatment Start: 11/06/18 12:10 Freq: NEEDED Status: Active Protocol: Document 11/12/18 12:54 SA (Rec: 11/12/18 13:05 SA [id number]) Physical Therapy Treatment Exercises Exercises Ankle Pumps Gluteal Sets Heel Slides Supine Hip Abduction M7 PT-IP Assessment and Plan Start: 11/06/18 12:10 Freq: NEEDED Status: Active Protocol: Document 11/12/18 12:54 SA (Rec: 11/12/18 13:05 SA [id number]) PT Summary Assessment and Plan Summary Impairments Strength Balance Gait Activity Tolerance Assessment Summary Pt with improving activity tolerance and functional mobility. No LOB. Progress gait training with no AD if she continues to improve. Frequency of Treatment Frequency Of Treatment Once a Day Treatment Plan Physical Therapy Treatment Plan Gait Training Therapeutic Exercise Balance Retraining Coordination Retraining Other Recommendations and Next Treatment progress stairs. Focus Recommendations To Nursing Amount of Assist Needed 1 Person Assist Discharge Recommendations PT Discharge Recommendations Home with Assistance Equipment Needed for Home Before likely FWW Discharge
[2018-11-12] MEDS: HYDROMORPHONE PCA (6MG/30ML) 6 MG/30 ML PCA.VIAL IV ×2 (14:10→22:02)
[2018-11-12] MEDS: AA 5 %/CALCIUM/LYTES/DEXT 20 % 1,000 ML with MULTIVITAMIN 10 ML, TRACE ELEMENTS 1 ML, I... 42.552 ML IV (17:55)
--- NOTE | 2018-11-12 18:56 | PC.NURSE ---
Pt awake and alert in bed. Admits to abdominal pain 6/10 and reports journeyman press operator is helpful. Denies nausea. Ice chips sparingly. TPN infusing as ordered via PICC line RUE. Spouse is present, attentive and involved in care.
[2018-11-12] MEDS: SODIUM CHLORIDE 0.9% FLUSH 10 ML IV (22:01)
[2018-11-12] MEDS: SODIUM CHLORIDE 0.9% 500 ML 21 ML IV (22:01)
[2018-11-13] VITALS (8 sets, daily range): BP systolic 126–161; BP diastolic 84–92; PULSE 76–83; RESP 16–20; TEMP 36.4–37.4; O2SAT 95–98
[2018-11-13] MEDS: INSULIN ASPART 100 UNIT/ML INSULN PEN SUBCUT ×4 (00:27→18:06)
--- NOTE | 2018-11-13 02:50 | PC.NURSE ---
Librarian Note: 0030: Awake, resting in bed. PICC in place in rt upper arm with dressing cdi; TPN infusing at 42.5cc/hr and NS infusing at 21cc/hr. PIV in place in rt wrist. LUBE WORKER in line and pt using it appropriately for pain relief. CBG 259: Novalog 5U given sq.
[2018-11-13 06:16] LABS: Alanine Aminotransferase 44 IU/L (9-52); Albumin 3.5 g/dL (3.5-5.0); Albumin Globulin Ratio 1.1 (1.0-2.8); Alkaline Phosphatase 114 U/L (38-126); Aspartate Aminotransferase 36 IU/L (14-36); Bilirubin Total 0.5 mg/dL (0.2-1.3); Blood Urea Nitrogen 8 mg/dL (7-17); Calcium 9.3 mg/dL (8.4-10.2); Carbon Dioxide 31 mmol/L (22-32); Chloride 97 mmol/L (98-107); Estimated Glomerular Filt Rate > 60.0 mL/min (>60); Globulin 3.1 g/dL (1.7-4.1); Glucose 281 mg/dL (80-110); HEMOLYSIS < 15 (0-50); Potassium 3.8 mmol/L (3.4-5.1); Sodium 137 mmol/L (137-145); Total Protein 6.6 g/dL (6.3-8.2)
--- NOTE | 2018-11-13 08:41 | P.PN_ITS ---
Subjective Date Patient Seen: 11/13/18 Time Patient Seen: 08:38 Interval history: Patient notes pain is much improved. Continues to pass small amount of flatus. No bowel movement as yet. Remains distended. No nausea or vomiting however. No chest pain or shortness of breath. No dysuria. No subjective fever or chills. Exam Vital Signs (past 8 hours): - 11/13/18 02:30 11/13/18 07:51 11/13/18 08:01 Temperature 97.9 F 99.4 F Pulse Rate 76 79 Respiratory Rate 18 16 Blood Pressure 149/91 H 154/86 H Pulse Oximetry 97 95 Oxygen Delivery Method Room Air Oxygen Flow Rate 0 Narrative Exam Narrative: Well-nourished well-developed female sitting comfortably at the bedside in no acute distress. Alert oriented x3. She is moving much more easily today without discomfort. Watching television. Remains afebrile and otherwise hemodynamically stable with normal blood pressure and no tachycardia Blood sugars remained elevated on TPN Adequate urine output No wheezes Abdomen remains distended and tympanitic. Less tender in the epigastric right upper quadrant region however. No guarding or rebound. Extremities show no clubbing or cyanosis Objective Labs Result Diagrams: 11/12/18 05:35 11/13/18 05:45 Labs: Laboratory Results - last 24 hr 11/12/18 11/13/18 05:35 05:45 Total Counted 100 Seg Neutrophils % 40.0 Band Neutrophils % 9.0 H Lymphocytes % (Manual) 23.0 L Atypical Lymphs % 2.0 H Monocytes % (Manual) 21.0 H Eosinophils % (Manual) 3.0 Basophils % (Manual) 2.0 H Neutrophils # (Manual) 3822 RBC Morphology Normal morphology Sodium 137 Potassium 3.8 Chloride 97 L Carbon Dioxide 31 BUN 8 Creatinine 0.40 L Estimated GFR > 60.0 BUN/Creatinine Ratio 20.0 Glucose 281 H Calcium 9.3 Magnesium 2.0 Total Bilirubin 0.5 AST 36 ALT 44 Alkaline Phosphatase 114 Total Protein 6.6 Albumin 3.5 Globulin 3.1 Albumin/Globulin Ratio 1.1 Assessment & Plan Assessment & Plan narrative: 62-year-old female with pancreatitis secondary to hypertriglyceridemia slowly resolving. We will allow her clear liquid diet to day and gauge her progress. However, I would advance the diet very slowly and I clearly instructed her to stop oral intake if she begins to have nausea, vomiting, progressive distention, or recurrent significant pain. She requires long-term low-fat diet once she is tolerating oral intake. Awaiting complete resolution of her ileus which is not unanticipated given the nature of her disease process and significant intraperitoneal inflammation. Once she is tolerating oral intake I would institute a bowel regimen in an effort to prevent significant constipation. Ambulate as much as tolerated. May shower from my perspective. Continue TPN without lipids until oral intake is adequate. I suspect this will be at least several more days. Again, she has no evidence of pancreatic necrosis, abscess, or cholecystitis and therefore requires no antibiotics. We will continue to monitor her progress. I discussed all the above with the patient in detail. Questions were answered to her satisfaction, and she voiced understanding. Orders written. Quality VTE Deep Vein Thrombosis/Pulmonary Embolism Present on Admission: No
--- NOTE | 2018-11-13 08:41 | PM.PN.1 ---
Subjective Date Patient Seen: 11/13/18 Time Patient Seen: 08:41 Interval history: Pancreatitis Patient feeling somewhat better passing gas but still no bowel movement. Interested in attempting to get some clear liquids as per Dr. Shaver. No nausea. Abdominal discomfort has decreased somewhat. Still somewhat distended. Out of bed couple times yesterday will increase this today. Has has questions about discharge medications yet to be determined Tolerating TPN without difficulty Exam Vital Signs (past 8 hours): - 11/13/18 02:30 11/13/18 07:51 11/13/18 08:01 Temperature 97.9 F 99.4 F Pulse Rate 76 79 Respiratory Rate 18 16 Blood Pressure 149/91 H 154/86 H Pulse Oximetry 97 95 Oxygen Delivery Method Room Air Oxygen Flow Rate 0 Narrative Exam Narrative: Patient is sitting upright much more mobile in bed itself. Lungs are clear heart regular rhythm no murmur gallop Abdomen is still distended soft decreased tenderness in the midepigastrium but still present Objective Labs Result Diagrams: 11/12/18 05:35 11/13/18 05:45 Labs: Laboratory Results - last 24 hr 11/13/18 05:45 Sodium 137 Potassium 3.8 Chloride 97 L Carbon Dioxide 31 BUN 8 Creatinine 0.40 L Estimated GFR > 60.0 BUN/Creatinine Ratio 20.0 Glucose 281 H Calcium 9.3 Magnesium 2.0 Total Bilirubin 0.5 AST 36 ALT 44 Alkaline Phosphatase 114 Total Protein 6.6 Albumin 3.5 Globulin 3.1 Albumin/Globulin Ratio 1.1 labs from today is reviewed of note her potassium now is normal Assessment & Plan Assessment & Plan narrative: 1. Pancreatitis presumably from hypertriglyceridemia. CC have improved. Clear liquids to be started as per Dr. Shaver. When she began to taking oral feedings and tolerating we will resume her oral medications for her medical issues. 2. Hypokalemia resolved. 3. Blood sugar still elevated have increased amount of insulin in the TPN last night increase the sliding scale. As stated when she begins to tolerate the food we will resume p.o. medications. Do not anticipate her going home on insulin yet to be determined. Her compliance with pills have been negative stable so I doubt that the insulin would be reasonable yet. 4. Albumin and total protein have normalized. 5. Pain management adequate when she becomes to tolerate oral we will switch her to hydrocodone and discontinue the intravenous narcotic. 6. Anticipate presumably 3 or 4 more days here in the hospital Quality VTE Deep Vein Thrombosis/Pulmonary Embolism Present on Admission: No
--- NOTE | 2018-11-13 08:48 | PM.PN.1 ---
Exam Vital Signs (past 8 hours): - 11/13/18 02:30 11/13/18 07:51 11/13/18 08:01 Temperature 97.9 F 99.4 F Pulse Rate 76 79 Respiratory Rate 18 16 Blood Pressure 149/91 H 154/86 H Pulse Oximetry 97 95 Oxygen Delivery Method Room Air Oxygen Flow Rate 0 Objective Labs Result Diagrams: 11/12/18 05:35 11/13/18 05:45 Labs: Laboratory Results - last 24 hr 11/13/18 05:45 Sodium 137 Potassium 3.8 Chloride 97 L Carbon Dioxide 31 BUN 8 Creatinine 0.40 L Estimated GFR > 60.0 BUN/Creatinine Ratio 20.0 Glucose 281 H Calcium 9.3 Magnesium 2.0 Total Bilirubin 0.5 AST 36 ALT 44 Alkaline Phosphatase 114 Total Protein 6.6 Albumin 3.5 Globulin 3.1 Albumin/Globulin Ratio 1.1 Assessment & Plan Assessment & Plan narrative: Additionally patient's blood pressure has been elevated. We will increase the dose of her lisinopril 10 mg daily Quality VTE Deep Vein Thrombosis/Pulmonary Embolism Present on Admission: No
--- NOTE | 2018-11-13 10:25 | PT.IPTN ---
Current Diagnoses Acute pancreatitis without necrosis or infection, unspecified (11/06/18) Physical Therapy Treatment Note M2 PT-IP Current Condition Start: 11/06/18 12:10 Freq: NEEDED Status: Active Protocol: Document 11/06/18 13:39 AB (Rec: 11/06/18 14:38 AB [id number]) Physical Therapy Current Condition Current Condition Evaluation Date 11/06/18 Treatment Diagnosis pancreatitis; difficulty in walking Onset Date 11/06/18 Precautions Other Precautions NPO M3 PT-IP Subjective Start: 11/06/18 12:10 Freq: NEEDED Status: Active Protocol: Document 11/13/18 10:16 SA (Rec: 11/13/18 10:25 SA [id number]) Subjective Physical Therapy Visit Type Type Treatment Note Visit Start Time 09:52 Visit Stop Time 10:08 Total Visit Minutes 16 Number of FISHER LOBSTER Visits 3 Physical Therapy Visit Comments Patient Comments Pt resting but agreeable to get up for walk. Patient Goals To return home. Therapy Pain Assessment Pain When Pain Assessed During Mobility Pain Present Pain Present Denied Pain M4 PT-IP Mobility and Gait Start: 11/06/18 12:10 Freq: NEEDED Status: Active Protocol: Document 11/13/18 10:16 SA (Rec: 11/13/18 10:25 SA [id number]) PT-Bed Mobility Assessment Rolling Type of Rolling Roll to Right Level of Assist Independent Supine to Sit Supine to Sit Independent Sit to Supine Sit to Supine Independent Scooting Scooting to Edge of Bed Independent Scooting Up and Down in Bed Independent PT-Transfer Assessment Sit to and From Stand Sit to and from Stand Standby Assistance Equipment Transfer Assistive Device None Gait Belt Orthotic/Prosthetic Devices or Brace: No Transfers Transfer Destination Bed Toilet Transfer Technique Stand Step Pivot Transfer Ability Level of Assist Standby Assistance Comments Mobility Comments Pt did not use FWW today and was able to mobilize in room with IV pole and SBA. IND with bed mobility. Cues for safety and pcing with activity. Gait Assessment Gait Gait Assistance Required: Standby Assistance 1 Person Assist Distance (Feet) 250 Assistive Devices Assistive Device Gait Belt Orthotic/Prosthetic Devices or Brace: No Gait Deviations General Gait Pattern Decreased Stride Length Flexed Trunk Factors Limiting Gait Function Factors Limiting Gait Function Decreased Activity Tolerance Decreased Strength Comments Gait Comments Gait training in crespo/room with no AD and self management of IV pole, pt had no LOB and was able to turn and navigate in tight spaces safely. Pt reported mild fatigue at end of walking. Stair Climbing Assessment Comments Stair Climbing Comments Declined stair training today. M5 PT-IP Objective Assessments Start: 11/06/18 12:10 Freq: NEEDED Status: Active Protocol: Document 11/09/18 10:01 RCC (Rec: 11/09/18 10:23 RCC [id number]) Other Assessments Other Other Assessments Warm R foot and calf to touch; no redness or pain with palpation of foot or calf on the R. M6 PT-IP Treatment Start: 11/06/18 12:10 Freq: NEEDED Status: Active Protocol: Document 11/13/18 10:16 SA (Rec: 11/13/18 10:25 SA [id number]) Physical Therapy Treatment Exercises Exercises Ankle Pumps Gluteal Sets Quad Sets Seated Knee Flexion/Extension Other Treatments Other Treatment Performed Standing heel/toe raises completed. M7 PT-IP Assessment and Plan Start: 11/06/18 12:10 Freq: NEEDED Status: Active Protocol: Document 11/13/18 10:16 SA (Rec: 11/13/18 10:25 SA [id number]) PT Summary Assessment and Plan Summary Impairments Strength Balance Gait Activity Tolerance Assessment Summary Pt no longer NPO and was able to have chicken broth and jello this AM, feeling good. Managed gait well with no AD but IV pole also provided some stability. Goals Bed Mobility Goal Independent Transfer Goal Independent Front Wheeled Walker Gait Goal Independent Front Wheel Walker Gait Distance 250 Other Goals up/down 2 steps with R rail ascending SBA Days to Meet Goals 5 Frequency of Treatment Frequency Of Treatment Once a Day Treatment Plan Physical Therapy Treatment Plan Gait Training Therapeutic Exercise Balance Retraining Coordination Retraining Other Recommendations and Next Treatment progress stairs. Focus Recommendations To Nursing Amount of Assist Needed 1 Person Assist Discharge Recommendations PT Discharge Recommendations Home with Assistance
[2018-11-13] MEDS: ENOXAPARIN 40 MG/0.4 ML SYRINGE SUBCUT (10:39)
[2018-11-13] MEDS: PANTOPRAZOLE 40 MG VIAL IV (10:39)
[2018-11-13] MEDS: LISINOPRIL 10 MG TABLET PO (10:46)
[2018-11-13] MEDS: FLUTICASONE/SALMETEROL 250/50 14 PUFF DISKUS INH (11:18)
[2018-11-13] MEDS: HYDROMORPHONE PCA (6MG/30ML) 6 MG/30 ML PCA.VIAL IV ×2 (14:58→21:24)
[2018-11-13] MEDS: METFORMIN HCL 500 MG TABLET PO ×2 (15:50→17:32)
--- NOTE | 2018-11-13 16:30 | PC.NURSE ---
Addendum entered by Alise Hooks R.N. 11/13/18 21:25: Pt has had two loose stools this evening shift. Has used 1.6 mg clinical review nurse dilaudid. PICC dressing changed to RUE as well as caps per protocol. Original Note: Pt awake and alert resting quietly in bed. Denies abdominal pain at rest. Admits to abdominal pain with activity 03/02. Using GENERAL DISTILLERY WORKER appropriately with good results. Denies nausea and taking clear liquids without difficulty. TPN to RUE PICC infusing without difficulty. Pt denies having bowel movement today, but states is passing flatus.
[2018-11-13] MEDS: AA 5 %/CALCIUM/LYTES/DEXT 20 % 1,000 ML with MULTIVITAMIN 10 ML, TRACE ELEMENTS 1 ML, I... 43.804 ML IV (17:33)
[2018-11-13] MEDS: SODIUM CHLORIDE 0.9% 500 ML 21 ML IV (20:49)
[2018-11-14] VITALS (11 sets, daily range): BP systolic 145–161; BP diastolic 77–87; PULSE 70–81; RESP 12–18; TEMP 36.2–37.1; O2SAT 92–99
[2018-11-14] MEDS: INSULIN ASPART 100 UNIT/ML INSULN PEN SUBCUT ×4 (00:22→17:09)
[2018-11-14 07:04] LABS: Hematocrit 29.5 % (36-46); Hemoglobin 9.9 g/dL (12.0-16.0); Mean Corpuscular HGB Conc 33.7 % (30-36); Mean Corpuscular Hemoglobin 31.7 PG (26-34); Mean Corpuscular Volume 94.2 fL (80-100); Platelet Count 366 X10^3/uL (150-400); Red Blood Cell Count 3.14 X10^6/uL (4.0-5.2); Red Cell Distribution Width 13.2 % (11.6-14.8); White Blood Cell Count 8.2 X10^3/uL (4.5-11.0)
[2018-11-14 07:05] LABS: Add Manual Diff / Slide Review YES
[2018-11-14 07:08] LABS: Alanine Aminotransferase 47 IU/L (9-52); Albumin 3.5 g/dL (3.5-5.0); Albumin Globulin Ratio 1.2 (1.0-2.8); Alkaline Phosphatase 115 U/L (38-126); Aspartate Aminotransferase 36 IU/L (14-36); BUN Creatinine Ratio 17.5 (6-22); Bilirubin Total 0.4 mg/dL (0.2-1.3); Blood Urea Nitrogen 7 mg/dL (7-17); Calcium 9.5 mg/dL (8.4-10.2); Carbon Dioxide 30 mmol/L (22-32); Chloride 95 mmol/L (98-107); Cholesterol 198 mg/dL (140-199); Estimated Glomerular Filt Rate > 60.0 mL/min (>60); Glucose 246 mg/dL (80-110); HDL Cholesterol 21 mg/dL (40-60); HEMOLYSIS < 15 (0-50); LDL Cholesterol Calculated 137 mg/dL (<100); Lipase 184 U/L (23-300); Sodium 136 mmol/L (137-145); Total Protein 6.5 g/dL (6.3-8.2); Triglycerides 201 mg/dL (35-150)
[2018-11-14 07:50] LABS: Neutrophils Absolute Manual 5576 /uL (3000-5900); Total Cells Counted 100
[2018-11-14 07:51] LABS: RBC Morphology Normal Morphology
[2018-11-14] MEDS: HYDROMORPHONE PCA (6MG/30ML) 6 MG/30 ML PCA.VIAL IV ×2 (07:53→22:12)
[2018-11-14] MEDS: ENOXAPARIN 40 MG/0.4 ML SYRINGE SUBCUT (08:08)
[2018-11-14] MEDS: LISINOPRIL 10 MG TABLET PO (08:09)
[2018-11-14] MEDS: METFORMIN HCL 500 MG TABLET PO ×2 (08:09→17:07)
[2018-11-14] MEDS: PANTOPRAZOLE 40 MG VIAL IV (08:10)
[2018-11-14] MEDS: FLUTICASONE/SALMETEROL 250/50 14 PUFF DISKUS INH (08:38)
--- NOTE | 2018-11-14 08:51 | PM.PN.1 ---
Subjective Date Patient Seen: 11/14/18 Time Patient Seen: 08:00 Interval history: Patient is lying comfortably in bed this morning. Tells me that she had several stools yesterday. Feels like her abdomen is much less distended. Very happy to be able to have clears. No nausea. Pain is improving. Exam Vital Signs (past 8 hours): - 11/14/18 05:00 11/14/18 07:55 11/14/18 08:39 Temperature 98.4 F Pulse Rate 75 70 Respiratory Rate 18 12 Blood Pressure 149/85 H Pulse Oximetry 95 96 99 Oxygen Delivery Method Room Air Oxygen Flow Rate 0 Narrative Exam Narrative: General: Well-developed, well-nourished, female, no acute distress. Heart: Regular rate and rhythm, no murmurs appreciated Lungs: Clear to auscultation bilaterally, no wheezes, rales or rhonchi Abd: BS+, soft, tenderness on the upper abdomen worst at the right upper quadrant, much less distended than when I saw her last on Saturday, no rebound, no guarding Extremities: Warm and well perfused Objective Labs Result Diagrams: 11/14/18 06:35 11/14/18 06:35 Labs: Laboratory Results - last 24 hr 11/14/18 11/14/18 06:35 06:35 WBC 8.2 RBC 3.14 L Hgb 9.9 L Hct 29.5 L MCV 94.2 MCH 31.7 MCHC 33.7 RDW 13.2 Plt Count 366 Neut % (Auto) Not Reportable Lymph % (Auto) Not Reportable [place] % (Auto) Not Reportable Eos % (Auto) Not Reportable Baso % (Auto) Not Reportable Lymph # (Auto) Not Reportable [place] # (Auto) Not Reportable Baso # (Auto) Not Reportable Total Counted 100 Seg Neutrophils % 60.0 Band Neutrophils % 8.0 H Lymphocytes % (Manual) 15.0 L Atypical Lymphs % 1.0 H Monocytes % (Manual) 11.0 Eosinophils % (Manual) 2.0 Basophils % (Manual) 1.0 Metamyelocytes % 1.0 H Myelocytes % 1.0 H Neutrophils # (Manual) 5576 RBC Morphology Normal morphology Sodium 136 L Potassium 4.0 Chloride 95 L Carbon Dioxide 30 BUN 7 Creatinine 0.40 L Estimated GFR > 60.0 BUN/Creatinine Ratio 17.5 Glucose 246 H Calcium 9.5 Magnesium 2.0 Total Bilirubin 0.4 AST 36 ALT 47 Alkaline Phosphatase 115 Total Protein 6.5 Albumin 3.5 Globulin 3.0 Albumin/Globulin Ratio 1.2 Triglycerides 201 H Cholesterol 198 LDL Cholesterol, Calc 137 H HDL Cholesterol 21 L Lipase 184 Assessment & Plan Assessment & Plan narrative: 1. Pancreatitis presumably from hypertriglyceridemia. Significant improvement. Tolerating clear liquids. Will see if Dr. Shaver will advance her to full liquids today. 2. Hypokalemia resolved. 3. Blood sugar still elevated have increased amount of insulin in the TPN last night increase the sliding scale but still inadequate. Will add lantus today. Likely one more day of TPN. As stated when she begins to tolerate the food we will resume p.o. medications. Dr. Diamond does not anticipate her going home on insulin but that is yet to be determined. Her compliance with pills has been spotty, unlikely insulin would be better. However may this episode would be a wake up call. 4. Albumin and total protein have normalized as well as her AST/ALT and alk phos. 5. Pain management adequate. switch her to hydrocodone and discontinue the intravenous narcotic possibly tomorrow if she tolerates full liquids. 6. Hypertension. lisinopril added yesterday. Will monitor. DVT prophylaxis: lovenox Disposition: home when tolerating PO. Anticipate a few more days. Quality VTE Deep Vein Thrombosis/Pulmonary Embolism Present on Admission: No
--- NOTE | 2018-11-14 10:34 | PT.IPTN ---
Current Diagnoses Acute pancreatitis without necrosis or infection, unspecified (11/06/18) Physical Therapy Treatment Note M2 PT-IP Current Condition Start: 11/06/18 12:10 Freq: NEEDED Status: Active Protocol: Document 11/06/18 13:39 AB (Rec: 11/06/18 14:38 AB [id number]) Physical Therapy Current Condition Current Condition Evaluation Date 11/06/18 Treatment Diagnosis pancreatitis; difficulty in walking Onset Date 11/06/18 Precautions Other Precautions NPO M3 PT-IP Subjective Start: 11/06/18 12:10 Freq: NEEDED Status: Active Protocol: Document 11/14/18 10:34 AB (Rec: 11/14/18 12:10 AB [id number]) Subjective Physical Therapy Visit Type Type Treatment Note Visit Start Time 10:34 Visit Stop Time 10:50 Total Visit Minutes 16 Number of DIRECTOR ON AIR Visits 0 Physical Therapy Visit Comments Patient Comments pt agreeable to do PT M4 PT-IP Mobility and Gait Start: 11/06/18 12:10 Freq: NEEDED Status: Active Protocol: Document 11/14/18 10:34 AB (Rec: 11/14/18 12:10 AB [id number]) PT-Bed Mobility Assessment Supine to Sit Supine to Sit Independent Sit to Supine Sit to Supine Independent PT-Transfer Assessment Sit to and From Stand Sit to and from Stand Standby Assistance Equipment Transfer Assistive Device None Bed Rail Gait Assessment Gait Gait Assistance Required: Standby Assistance Contact Guard Assist Distance (Feet) 350 Able to Maintain Weight Bearing Status Yes During Gait Assistive Devices Assistive Device None Gait Belt Orthotic/Prosthetic Devices or Brace: No Gait Deviations General Gait Pattern Antalgic Factors Limiting Gait Function Factors Limiting Gait Function Decreased Activity Tolerance Decreased Strength Pain Poor Balance Comments Gait Comments Pt ambulated in hallway without AD. PT assisted pt with IV pole so pt will ambulate without support. pt with antalgic gait and with several LOB requiring CGA for rebalancing. Stair Climbing Assessment Evaluation Level of Assist On Stairs Contact Guard Assistance Devices Stair Climbing Assistive Devices Left Railing Right Railing Technique/Endurance Stair Climbing Direction Ascend and Descend Stair Climbing Technique Step to Step Number of Steps Climbed 3 Query Text: Stair Climbing Set # Repetitions (reps) 2 Comments Stair Climbing Comments completed up/down steps using B rails with first set requiring CGA and then just L rail ascending CGA. M5 PT-IP Objective Assessments Start: 11/06/18 12:10 Freq: NEEDED Status: Active Protocol: Document 11/09/18 10:01 RCC (Rec: 11/09/18 10:23 RCC [id number]) Other Assessments Other Other Assessments Warm R foot and calf to touch; no redness or pain with palpation of foot or calf on the R. M6 PT-IP Treatment Start: 11/06/18 12:10 Freq: NEEDED Status: Active Protocol: Document 11/14/18 10:34 AB (Rec: 11/14/18 12:10 AB [id number]) Physical Therapy Treatment Education Education Provided Safety M7 PT-IP Assessment and Plan Start: 11/06/18 12:10 Freq: NEEDED Status: Active Protocol: Document 11/14/18 10:34 AB (Rec: 11/14/18 12:10 AB [id number]) PT Summary Assessment and Plan Potential Rehabilitation Potential Good Summary Impairments Pain Strength Balance Transfers Gait Activity Tolerance Progress Towards Goals Progressing Toward Goals Assessment Summary Pt progressing with mobility but continues to present with unsteady gait without AD with (+) LOB. PT to continue to improve standing balance, activity tolerance and ambulation. Goals Bed Mobility Goal Independent Transfer Goal Independent Gait Goal Independent Gait Distance 300 Other Goals up/down 2 steps with L rail ascending SBA Days to Meet Goals 5 Frequency of Treatment Frequency Of Treatment Once a Day Treatment Plan Physical Therapy Treatment Plan Gait Training Therapeutic Exercise Balance Retraining Coordination Retraining Other Recommendations and Next Treatment progress stairs. Focus Recommendations To Nursing Amount of Assist Needed 1 Person Assist Discharge Recommendations PT Discharge Recommendations Home with Assistance
[2018-11-14] MEDS: INSULIN GLARGINE 100 UNIT/ML 3ML PEN 10 UNIT SUBCUT (11:05)
--- NOTE | 2018-11-14 12:21 | PC.NURSE ---
Addendum entered by Carol Verde R.N. 11/14/18 14:15: MANAGER [employer] Dilaudid shift total was 1.3mg=6.5mls Original Note: Day Shift-Pt ambulating indep to BR with steady gait, also ambulated in halls using IV pole. Pt tolerating clear liquid diet, denies nausea. Abd soft, round, distended tender to RUQ abd. Rates 2/10 to RUQ abd, MANAGER OF INTERN[employer] Dilaudid in place and pt using appropriately. BSX4 audible upon auscultation to Right side abd, hypoactive to left side abd. Passing little amount of flatus. Had 2 small loose brown/yellow BM's this shift. TPN infusing well to NIALL PICC, asl well as IVF supporting [employer]NAGER [employer]. PICC dressing CDI. New order of Lantus 10 units ordered by and given to pt at 1110. Educated on Lantus versus Sliding scale insulin. Pt agreeable.
[2018-11-14] MEDS: AA 5 %/CALCIUM/LYTES/DEXT 20 % 1,000 ML with MULTIVITAMIN 10 ML, TRACE ELEMENTS 1 ML, I... 43.804 ML IV (16:58)
[2018-11-14] MEDS: SODIUM CHLORIDE 0.9% 500 ML 21 ML IV (22:13)
--- NOTE | 2018-11-14 22:18 | PC.NURSE ---
Pt used 1 mg diamond cleaver dilaudid this evening shift. Has been up independently in the room and ambulatory in hallway. Loose stools without nausea. TORPEDOMAN'S MATE managing pain well. Clear liquids without difficulty.
--- NOTE | 2018-11-14 22:53 | PM.PN.1 ---
Subjective Date Patient Seen: 11/14/18 Time Patient Seen: 14:10 Interval history: Is woman under treatment for pancreatitis felt related to high triglycerides. On clear liquids and has not had any increased in pain. Exam Vital Signs (past 8 hours): - 11/14/18 16:05 11/14/18 16:50 11/14/18 20:05 Temperature 98.4 F 98.7 F Pulse Rate 76 76 Respiratory Rate 16 16 Blood Pressure 145/78 H 146/78 H Pulse Oximetry 98 92 97 Oxygen Delivery Method Room Air Oxygen Flow Rate 0 Narrative Exam Narrative: Abdomen remains distended like a large basketball. No real tenderness however. No hernias appreciated. Lungs are clear to auscultation. Objective Labs Result Diagrams: 11/14/18 06:35 11/14/18 06:35 Labs: Laboratory Results - last 24 hr 11/14/18 11/14/18 06:35 06:35 WBC 8.2 RBC 3.14 L Hgb 9.9 L Hct 29.5 L MCV 94.2 MCH 31.7 MCHC 33.7 RDW 13.2 Plt Count 366 Neut % (Auto) Not Reportable Lymph % (Auto) Not Reportable [place] % (Auto) Not Reportable Eos % (Auto) Not Reportable Baso % (Auto) Not Reportable Lymph # (Auto) Not Reportable [place] # (Auto) Not Reportable Baso # (Auto) Not Reportable Total Counted 100 Seg Neutrophils % 60.0 Band Neutrophils % 8.0 H Lymphocytes % (Manual) 15.0 L Atypical Lymphs % 1.0 H Monocytes % (Manual) 11.0 Eosinophils % (Manual) 2.0 Basophils % (Manual) 1.0 Metamyelocytes % 1.0 H Myelocytes % 1.0 H Neutrophils # (Manual) 5576 RBC Morphology Normal morphology Sodium 136 L Potassium 4.0 Chloride 95 L Carbon Dioxide 30 BUN 7 Creatinine 0.40 L Estimated GFR > 60.0 BUN/Creatinine Ratio 17.5 Glucose 246 H Calcium 9.5 Magnesium 2.0 Total Bilirubin 0.4 AST 36 ALT 47 Alkaline Phosphatase 115 Total Protein 6.5 Albumin 3.5 Globulin 3.0 Albumin/Globulin Ratio 1.2 Triglycerides 201 H Cholesterol 198 LDL Cholesterol, Calc 137 H HDL Cholesterol 21 L Lipase 184 Assessment & Plan Assessment & Plan narrative: Overall seems to be doing well. Slowly recovering. This will be a process. Consider continuation of TPN. Surgically does not seem to have any needs at this time. Should something change we would be happy to re-consult. Quality VTE Deep Vein Thrombosis/Pulmonary Embolism Present on Admission: No
[2018-11-15] VITALS (10 sets, daily range): BP systolic 143–157; BP diastolic 75–95; PULSE 74–83; RESP 16–18; TEMP 36.7–36.9; O2SAT 94–99
[2018-11-15 06:02] LABS: Carbon Dioxide 29 mmol/L (22-32); Chloride 97 mmol/L (98-107); HEMOLYSIS < 15 (0-50); Potassium 4.2 mmol/L (3.4-5.1); Sodium 135 mmol/L (137-145)
[2018-11-15] MEDS: INSULIN ASPART 100 UNIT/ML INSULN PEN SUBCUT ×3 (06:15→18:00)
[2018-11-15] MEDS: LISINOPRIL 10 MG TABLET PO (10:04)
[2018-11-15] MEDS: METFORMIN HCL 500 MG TABLET PO ×2 (10:04→17:57)
[2018-11-15] MEDS: ENOXAPARIN 40 MG/0.4 ML SYRINGE SUBCUT (10:04)
[2018-11-15] MEDS: PANTOPRAZOLE 40 MG VIAL IV (10:05)
[2018-11-15] MEDS: INSULIN GLARGINE 100 UNIT/ML 3ML PEN 10 UNIT SUBCUT (10:10)
--- NOTE | 2018-11-15 10:10 | CM.DPC ---
DCP Cont: Per MD, pt is on clear liquids and abdomen is still distended but her pain is improving and pt still on TPN but hopeful to discontinue today and advance her diet and home in a couple days if stable. Per RN, pt has been independent in her room and ambulating the hallways. Per PT, recommending home with family assist when stable. SW met bedside with pt and spouse and explained role and they both confirm that they feel they have received excellent care here while admitted and they are looking forward to discharging home and do not currently feel that they will have any SW needs at d/c. Spouse is willing and available to assist along with local supportive son. Plan: SW to follow for likely pt d/c home with supportive spouse and local son assist when medically stable once pt's diet can be advanced. DIAN Ortega
--- NOTE | 2018-11-15 10:43 | P.PN_ITS ---
Subjective Date Patient Seen: 11/15/18 Time Patient Seen: 10:40 Interval history: Patient is up walking around without particular difficulty. Tolerated clear liquids just fine. Abdomen still improved over where it was at its worst and seems to be improving day by day No new complaints or issues Exam Vital Signs (past 8 hours): - 11/15/18 04:45 11/15/18 07:43 11/15/18 08:44 Temperature 98.3 F 98.0 F Pulse Rate 76 82 78 Respiratory Rate 16 18 16 Blood Pressure 146/79 H 157/90 H Pulse Oximetry 97 98 97 11/15/18 10:04 Temperature Pulse Rate 78 Respiratory Rate Blood Pressure 157/90 H Pulse Oximetry Fraction of Inspired Oxygen 21 Oxygen Delivery Method Room Air Oxygen Flow Rate 0 Narrative Exam Narrative: Abdomen-positive bowel tones minimally distended, soft no obvious discomfort to palpation Objective Labs Result Diagrams: 11/14/18 06:35 11/15/18 05:33 Labs: Laboratory Results - last 24 hr 11/15/18 05:33 Sodium 135 L Potassium 4.2 Chloride 97 L Carbon Dioxide 29 Magnesium 2.0 Assessment & Plan Assessment & Plan narrative: 1. Pancreatitis-seems to have resolved. Continue to advance diet slowly. I think she is okay to go to a low-fat diet today. Given that I will have her TPN discontinue once the current bag runs out later this evening. No need to reorder TPN once current TPN bag finishes 2. Diabetes-blood sugars are still out of control. Hopefully with dis continuation of TPN this will come under better control. Continue with oral metformin and monitor numbers as patient's diet is returning to normal 3. Electrolytes-stable normal. Plan to recheck tomorrow 4. Hypertriglyceridemia-I am going to re-initiate patient's fibrate today to prevent recurrent buildup of triglycerides. Will hold off on statin therapy until closer to discharge 5. Pain management-hopefully we can discontinue the IV narcotics and continue with oral narcotics only 6. Hypertension-blood pressure is still elevated. Not a dangerous level. Cont inue to monitor continue with lisinopril for now without change for today. Consider perhaps increasing dose tomorrow depending on clinical course. Still probably in the hospital for at least a couple more days we advanced her diet and ensure stability. Also need to trying get blood sugar under better control which again as above hoping will occur once TPN is discontinued (which should be later today) Note: Greater than 30 minutes was spent evaluating the patient on the floor, including examining the patient, discussing clinical course with clinical and nursing staff, reviewing clinical course in the computer, preparing documentation and writing orders for continued management of care, discussing status with family as appropriate, reviewing plans for the next 24 hours with both patient/family and nursing staff as appropriate. Quality VTE Deep Vein Thrombosis/Pulmonary Embolism Present on Admission: No
--- NOTE | 2018-11-15 11:15 | PT.IPTN ---
Current Diagnoses Acute pancreatitis without necrosis or infection, unspecified (11/06/18) Physical Therapy Treatment Note M2 PT-IP Current Condition Start: 11/06/18 12:10 Freq: NEEDED Status: Active Protocol: Document 11/06/18 13:39 AB (Rec: 11/06/18 14:38 AB [id number]) Physical Therapy Current Condition Current Condition Evaluation Date 11/06/18 Treatment Diagnosis pancreatitis; difficulty in walking Onset Date 11/06/18 Precautions Other Precautions NPO M3 PT-IP Subjective Start: 11/06/18 12:10 Freq: NEEDED Status: Active Protocol: Document 11/15/18 10:40 GGD (Rec: 11/15/18 11:15 GGD [id number]) Subjective Physical Therapy Visit Type Type Treatment Note Visit Start Time 10:25 Visit Stop Time 10:40 Total Visit Minutes 15 Number of ENERGY EFFICIENCY ENGINEER Visits 1 Physical Therapy Visit Comments Patient Comments Pt states she been up and walking. Therapy Pain Assessment Pain When Pain Assessed During Mobility Pain Present Pain Present Denied Pain M4 PT-IP Mobility and Gait Start: 11/06/18 12:10 Freq: NEEDED Status: Active Protocol: Document 11/15/18 10:40 GGD (Rec: 11/15/18 11:15 GGD [id number]) PT-Bed Mobility Assessment Supine to Sit Supine to Sit Independent Sit to Supine Sit to Supine Independent Scooting Scooting to Edge of Bed Independent Scooting Up and Down in Bed Independent PT-Transfer Assessment Sit to and From Stand Sit to and from Stand Independent Equipment Transfer Assistive Device None Gait Belt Transfers Transfer Destination Bed Transfer Ability Level of Assist Standby Assistance Gait Assessment Gait Gait Assistance Required: Standby Assistance Distance (Feet) 250 Able to Maintain Weight Bearing Status Yes During Gait Assistive Devices Assistive Device None Gait Belt Orthotic/Prosthetic Devices or Brace: No Factors Limiting Gait Function Factors Limiting Gait Function Decreased Activity Tolerance Decreased Strength Comments Gait Comments Pt ambulated without AD. Pt had no LOB. Stair Climbing Assessment Evaluation Level of Assist On Stairs Standby Assistance Devices Stair Climbing Assistive Devices Left Railing Technique/Endurance Stair Climbing Direction Ascend and Descend Stair Climbing Technique Step to Step Number of Steps Climbed 3 Query Text: Stair Climbing Set # Repetitions (reps) 1 M5 PT-IP Objective Assessments Start: 11/06/18 12:10 Freq: NEEDED Status: Active Protocol: Document 11/09/18 10:01 RCC (Rec: 11/09/18 10:23 RCC [id number]) Other Assessments Other Other Assessments Warm R foot and calf to touch; no redness or pain with palpation of foot or calf on the R. M6 PT-IP Treatment Start: 11/06/18 12:10 Freq: NEEDED Status: Active Protocol: Document 11/14/18 10:34 AB (Rec: 11/14/18 12:10 AB [id number]) Physical Therapy Treatment Education Education Provided Safety M7 PT-IP Assessment and Plan Start: 11/06/18 12:10 Freq: NEEDED Status: Active Protocol: Document 11/15/18 10:40 GGD (Rec: 11/15/18 11:15 GGD [id number]) PT Summary Assessment and Plan Summary Assessment Summary Pt improving with gait. She was SBA for stair mobility. She was safe and stable with giat without LOB or need for assistive device. She is safe for home D/C when medically stable. Frequency of Treatment Frequency Of Treatment Discharge Recommendations To Nursing Amount of Assist Needed Independent Discharge Recommendations PT Discharge Recommendations Home with Assistance
[2018-11-15] MEDS: OLOPATADINE 0.1% OPHTH DROPS 5 ML 1 DROPS EYE-BOTH (11:26)
[2018-11-15] MEDS: OXYCODONE IR 5 MG TABLET PO (13:56)
[2018-11-15] MEDS: FENOFIBRATE 145 MG TABLET PO (20:22)
[2018-11-16] VITALS (9 sets, daily range): BP systolic 125–152; BP diastolic 73–83; PULSE 65–76; RESP 14–18; TEMP 36.6–37.1; O2SAT 95–97
[2018-11-16] MEDS: SODIUM CHLORIDE 0.9% FLUSH 10 ML IV ×2 (05:46→08:55)
[2018-11-16] MEDS: INSULIN ASPART 100 UNIT/ML INSULN PEN SUBCUT ×3 (05:59→17:01)
[2018-11-16 06:13] LABS: BUN Creatinine Ratio 16.7 (6-22); Blood Urea Nitrogen 10 mg/dL (7-17); Carbon Dioxide 30 mmol/L (22-32); Chloride 99 mmol/L (98-107); Estimated Glomerular Filt Rate > 60.0 mL/min (>60); Glucose 193 mg/dL (80-110); HEMOLYSIS < 15 (0-50); Lipase 189 U/L (23-300); Potassium 4.2 mmol/L (3.4-5.1); Sodium 139 mmol/L (137-145)
[2018-11-16] MEDS: FLUTICASONE/SALMETEROL 250/50 14 PUFF DISKUS INH (08:11)
[2018-11-16] MEDS: PANTOPRAZOLE 40 MG VIAL IV (08:51)
[2018-11-16] MEDS: METFORMIN HCL 500 MG TABLET PO (08:51)
[2018-11-16] MEDS: ENOXAPARIN 40 MG/0.4 ML SYRINGE SUBCUT (08:51)
[2018-11-16] MEDS: LISINOPRIL 10 MG TABLET PO (08:54)
[2018-11-16] MEDS: OLOPATADINE 0.1% OPHTH DROPS 5 ML 1 DROPS EYE-BOTH (08:54)
[2018-11-16] MEDS: INSULIN GLARGINE 100 UNIT/ML 3ML PEN 10 UNIT SUBCUT (09:01)
--- NOTE | 2018-11-16 12:19 | PM.PN.1 ---
Subjective Date Patient Seen: 11/16/18 Time Patient Seen: 12:19 Interval history: Patient on low-fat diet and is having no increased symptoms. Did fine with lunch yesterday and dinner breakfast this morning and is currently eating lunch without any increased abdominal symptoms whatsoever As not used any oxycodone since yesterday Of course is off TPN and off of the ADV[employer]ACTICE PROFESSIONAL. Blood sugars are some better off of the TPN although certainly not under control as yet Exam Vital Signs (past 8 hours): - 11/16/18 05:45 11/16/18 08:05 11/16/18 08:13 Temperature 98.0 F Pulse Rate 75 65 Respiratory Rate 16 14 Blood Pressure 140/77 Pulse Oximetry 95 97 95 11/16/18 09:00 Temperature 98.2 F Pulse Rate 66 Respiratory Rate 16 Blood Pressure 135/74 Pulse Oximetry 96 Fraction of Inspired Oxygen 21 Oxygen Delivery Method Room Air Oxygen Flow Rate 0 Objective Labs Result Diagrams: 11/14/18 06:35 11/16/18 05:55 Labs: Laboratory Results - last 24 hr 11/16/18 05:55 Sodium 139 Potassium 4.2 Chloride 99 Carbon Dioxide 30 BUN 10 Creatinine 0.60 Estimated GFR > 60.0 BUN/Creatinine Ratio 16.7 Glucose 193 H Calcium 10.0 Lipase 189 Assessment & Plan Assessment & Plan narrative: 1. Pancreatitis-diet has been advanced and she has no additional symptoms. Continue with low-fat diet and continue with meds. Will add some acetaminophen for pain relief in addition to the oxycodone 2. Diabetes-numbers are improved. I am going to double the metformin to see if we can get better control prior to her discharge 3. Electrolytes-stable 4. Hypertriglyceridemia-patient back on her fib rate and would presume to restart statin therapy upon discharge 5. Hypertension-numbers are not perfect by any means. Numbers are better today however. Therefore no changes in meds today continue to monitor. Note: Greater than 30 minutes was spent evaluating the patient on the floor, including examining the patient, discussing clinical course with clinical and nursing staff, reviewing clinical course in the computer, preparing documentation and writing orders for continued management of care, discussing status with family as appropriate, reviewing plans for the next 24 hours with both patient/family and nursing staff as appropriate. Quality VTE Deep Vein Thrombosis/Pulmonary Embolism Present on Admission: No
[2018-11-16] MEDS: ACETAMINOPHEN 325 MG TABLET 650 MG PO ×3 (12:33→20:25)
[2018-11-16] MEDS: METFORMIN HCL 500 MG TABLET 1000 MG PO (16:58)
--- NOTE | 2018-11-16 17:14 | PC.NURSE ---
1500- Safe handoff from day RN. Pt sitting in bed, states she has 3/10 stomach pain an would like tylenol when its available. Active bowel sounds; 3 BM's thru the day reported. 2 lumen PICC on R arm hep locked. 1700- Pt's insulin changed to ac/hs. Educated on Metformin medication & why the dosing was increased. 2 units insulin given per protocol. 2020- PM meds given, tylenol given for 3/10 pain. BG 180 before bed; no insulin needed.
[2018-11-16] MEDS: FENOFIBRATE 145 MG TABLET PO (20:21)
--- NOTE | 2018-11-17 01:56 | PC.NURSE ---
Patient had blood pressure of 152/83 at 2300. Rechecked BP with my assessment. At 2345 blood pressure was 140/76. Denies pain at this tme.
[2018-11-17 05:57] VITALS: BP 151/76; PULSE 69; RESP 16; TEMP 36.8; O2SAT 96
[2018-11-17] MEDS: ACETAMINOPHEN 325 MG TABLET 650 MG PO (07:47)
[2018-11-17] MEDS: INSULIN ASPART 100 UNIT/ML INSULN PEN SUBCUT ×2 (07:47→11:54)
[2018-11-17 07:48] VITALS: BP 146/81; PULSE 75; RESP 16; TEMP 36.5; O2SAT 96
[2018-11-17 07:58] VITALS: O2SAT 97
[2018-11-17] MEDS: INSULIN GLARGINE 100 UNIT/ML 3ML PEN 10 UNIT SUBCUT (09:05)
[2018-11-17] MEDS: OLOPATADINE 0.1% OPHTH DROPS 5 ML 1 DROPS EYE-BOTH (09:06)
[2018-11-17] MEDS: METFORMIN HCL 500 MG TABLET 1000 MG PO (09:06)
[2018-11-17] MEDS: ENOXAPARIN 40 MG/0.4 ML SYRINGE SUBCUT (09:06)
[2018-11-17] MEDS: LISINOPRIL 10 MG TABLET PO (09:06)
[2018-11-17] MEDS: PANTOPRAZOLE 40 MG VIAL IV (09:07)
[2018-11-17] MEDS: SODIUM CHLORIDE 0.9% FLUSH 10 ML IV (09:10)
[2018-11-17] MEDS: ALBUTEROL HFA 60 PUFF/8 GM INH INH (09:51)
[2018-11-17] MEDS: FLUTICASONE/SALMETEROL 250/50 14 PUFF DISKUS INH (09:51)
[2018-11-17 09:52] VITALS: PULSE 75; RESP 12; O2SAT 95
--- NOTE | 2018-11-17 10:37 | P.DS_ITS ---
History of Present Illness Chief complaint: states severe upper abdominal pain and back ache Narrative: Abdominal pain. Patient admitted through the emergency room last night for pancreatitis. Patient has been essentially well up until Saturday morning. She began have abdominal pain. She called the office and we order some laboratory studies and set her up for appointment next week. During the course of the day the pain got worse pretty intense. No vomiting but some nausea. She has had decreased stool output. She came to the emergency room and was found to have some changes consistent with pancreatitis and admitted. Patient thinks she may have had a similar episode several years ago with for which she sought no physician 4. She is unclear whether not his pancreatitis or not but she thinks. Patient still has a gallbladder has lot of gallstones in the past. She admits to drinking 3 drinks when she does drink but she did apparently does not drink every day. Patient is since retired. She has a history of diabetes, history of hyper lipidemia, and also noncompliance with medications. She admits that she has not been terribly compliant with medications although details are unknown. Discharge Providers Date of admission: 11/06/18 00:10 Primary care physician: Arthur Diamond MD Consults: 11/06/18 03:26 Consult to Lacquer Sizer Routine Comment: 11/06/18 07:51 Consult to Dietitian, Adult Routine Comment: Reason For Exam: hyperlipid Consult to Physical Therapy Evaluate & Treat Comment: Physician Instructions: Evaluate and Treat 11/09/18 12:30 Consult to General Surgery Routine Comment: Consulting Provider: Dash Shaver Reason for consultation: acute cholecystitis Has provider been notified: Yes 11/10/18 18:06 Consult to PICC Line RN Routine Comment: Discharge provider: Arthur Diamond MD Discharge Date: 11/17/18 Summary Discharge Diagnosis: 1. Pancreatitis. 2. Hypertriglyceridemia. 3. The diabetes mellitus. 4. Hypertension. 5. Hyperlipidemia. 6. Hypertension. 7. Reactive airway Hospital Course: Patient was admitted through the emergency room for acute pancreatitis. During course wrist failure self that her acute pancreatitis secondary t 2 hypertriglyceridemia. Having a triglyceride level of over 13,000. Initially he was she was treated with intravenous fluids and insulin. She was seen in consultation by Dr. Lamonte Shaver surgeon who felt she had pancreatitis. Evaluation cleared CT, HIDA scan. All of which showed function gallbladder with no evidence for cholangitis. Patient had a prolonged ileus for several days resulting in abdominal distention mid epigastric pain and lack of bowel movements however 3 days prior to discharge she was the passing gas bowel movements. Initially she was placed on a NPO, follow-up with TPN, followed the clear liquids and then low-fat diet. All of which she tolerated well. TPN resulted in her blood sugars being elevated and she did require coverage with insulin. Additionally her metformin was increased from 1 twice a day to 2 twice a day. Patient patient's past experience of noncompliance it was felt that insulin as an outpatient would be unlikely successful. She was discharged on metformin 1000 mg twice a day and. Hypertriglyceridemia was treated with her try core of 145 mg daily. Her hyperlipidemia was treated with Crestor 40 mg daily increasing strength from the atorvastatin that she had be on. She was check her blood sugars fasting and med prior to her evening meal. Continue on metformin 1000 mg twice a day. Her blood pressure was controlled easily with lisinopril 10 mg daily she did thinks made developed a cough about occurred when she laid down at nighttime only. It was tolerable and she will stay the course. She will see me back in 2 weeks get a hemoglobin A1c that time. Patient is going to [facility] December 27 and should be a do that without difficulty Mirza some complications in the interim Status at Discharge Cognitive/behavioral status at discharge: Back to normal Functional status at discharge: independent ambulation Overall status at discharge: patient is back to baseline Time Spent with Patient Greater than 30 minutes Exam Vital Signs (past 8 hours): - 11/17/18 05:57 11/17/18 07:48 11/17/18 07:58 Temperature 98.2 F 97.7 F Pulse Rate 69 75 Respiratory Rate 16 16 Blood Pressure 151/76 H 146/81 H Pulse Oximetry 96 96 97 11/17/18 09:52 Temperature Pulse Rate 75 Respiratory Rate 12 Blood Pressure Pulse Oximetry 95 Fraction of Inspired Oxygen 21 Oxygen Delivery Method Room Air Oxygen Flow Rate 0 Objective Labs Result Diagrams: 11/14/18 06:35 11/16/18 05:55 Discharge Plan Discharge Med Rec/Prescriptions Prescriptions: New metformin [Glucophage] 500 mg Tablet 1,000 mg PO 0800,1700 Qty: 360 RF: 3 lisinopril 10 mg Tablet 10 mg PO DAILY 90 Days Qty: 100 RF: 0 rosuvastatin [Crestor] 40 mg tablet 40 mg PO DAILY Qty: 90 RF: 3 Continued CA PANTOTHENATE/FOLIC ACID/VIT (MULTIVITAMIN) 1 tab PO Q DAY Qty: 0 RF: 0 fenofibrate nanocrystallized [Tricor] 145 mg tablet 145 mg PO HS Qty: 90 RF: 1 olopatadine [Patanol] 0.1 % drops 1 drop EYE-BOTH Q DAY Qty: 5 RF: 1 Advair Diskus 250-50 mcg/dose blister with device 1 inhalation INHALATION QAM RF: 0 clobetasol 0.05 % ointment Topical PRN PRN (Reason: Itching) RF: 0 Discontinued atorvastatin 80 mg tablet 80 mg PO HS Qty: 90 RF: 2 metformin [Glucophage] 500 mg tablet 500 mg PO BIDCC Qty: 180 RF: 0 Follow up/Referrals: Arthur Diamond MD [Primary Care Provider] - Discharge Orders: Discharge (Order); Ordered 11/17/18 Ordered By: Arthur Diamond Discharge Data Primary Care Provider: Arthur Diamond Attending Provider: Arthur Diamond Admit Date/Time: 11/06/18 00:10 Quality VTE Deep Vein Thrombosis/Pulmonary Embolism Present on Admission: No
--- NOTE | 2018-11-17 12:25 | PC.NURSE ---
Day shift: Pt left unit at approx 1210. Paperwork signed and all questions answered. Has all personal belongings. Son is given Pt ride to her home. Scrips sent to pharmacy by .
== END 2018-11-17 12:27 | disposition home or self-care (01) | DRG 439 ==
LOC: ED 11-06 00:08 → AC 11-06 06:44
PROVIDERS: Family Medicine; Internal Medicine; Admitting Provider Family Medicine; Emergency Provider Emergency Medicine; PCP Family Medicine; Visit Provider Family Medicine
DX: K85.80 Other acute pancreatitis without necrosis or infection (principal); K56.7 Ileus, unspecified; E11.65 Type 2 diabetes mellitus with hyperglycemia; E78.1 Pure hyperglyceridemia; T38.3X6A Underdosing of insulin and oral hypoglycemic [antidiabetic] drugs, initial encounter; Z91.128 Patient's intentional underdosing of medication regimen for other reason; E87.6 Hypokalemia; E88.9 Metabolic disorder, unspecified; Z79.84 Long term (current) use of oral hypoglycemic drugs; J45.909 Unspecified asthma, uncomplicated
CPT/HCPCS: 36415; 36573; 36591; 36592; 71045; 74177; 76700; 78227; 80048; 80051; 80053; 80061; 82962; 83615; 83690; 83735; 83880; 84132; 84145; 84478; 85025; 86140; 87086; 90471; 90656; 94640; 94760; 96361; 96374; 97110; 97116; 97162; 97530; 99222; 99231; 99232; 99233; 99238; 99283; 99285; A9537; B4189; C9113; J0610; J1642; J1650; J2270; J2405; J2805; J3480; Q2038; Q9967

== ENCOUNTER → 2018-11-22 10:46 | Outpatient (CLI) | payer OTHER, SELFPAY ==
[2018-11-06 01:00] VITALS: BMI 30.2
[2018-11-22 11:50] LABS: Hemoglobin A1C% w Est Avg Glu 10.3 % (4.0-6.0)
== END ==
PROVIDERS: PCP Family Medicine; Visit Provider Family Medicine
DX: E11.9 Type 2 diabetes mellitus without complications (principal)
CPT/HCPCS: 36415; 83036

== ENCOUNTER → 2018-12-10 12:49 | Outpatient (CLI) | payer OTHER, SELFPAY ==
[2018-11-06 01:00] VITALS: BMI 30.2
--- NOTE | 2018-12-10 14:35 | DIET.PN ---
DIABETES Nutrition Initial Assessment:? ASSESS:?? 62yof referred for type 2 diabetes, hypercholesterolemia and hyperlipidemia. Two year diagnosis of DM. Recent admission for pancreatits where she was inpatient for 2 weeks. Since then pt has began checking BG 2x /day. LABS: Per pt report:? A1c: 10.3 FB-222 Bedtime: 81-238 Tri ? MEDS:?? metformin 1000 BID Glimepiride: 4mg ? DIET: Per 24-hour recall:? States she has not followed any specific dietary restrictions as she was not sure what to eat. ? Exercise:? walking 1 mi few times/week. NUTRITION DX 1. Altered Nutrition related labs related to impaired glucose metabolism, lack of previous exposure to accurate nutrition information as evidenced by pt report, dx of diabetes, previous diet high in refined carbohydrates.? INTERVENTION(s): 1. Discussed pathophysiology of diabetes. Reviewed A1c and its correlation to blood glucose numbers. Discussed recommended BG ranges. 2. Discussed importance of self-monitoring, how often, and when to check. 3. Reviewed hyper/hypoglycemia and treatment. 4. Reviewed safe disposal of equipment (strip/lancets/insulin needles). 5. Discussed impact of nutrition/diet on blood sugar control.? Discussed fed versus non-fed state.?? 6. Discussed the effect of carbohydrates/protein/fat on blood sugar control.? Stressed importance of consistent carbohydrate intake at each meal and provided instructions for recommended servings/portions of carbohydrates/protein per meal. Provided pt with educational material. 7. Reviewed carbohydrate counting and measuring carbohydrate content via serving sizes and reading nutrition labels.? Provided handouts.?? 8. Discussed the difference between simple versus complex carbohydrates and the effect of fiber on blood sugar control.? Discussed various methods to increase fiber content in diet. 9. Stressed importance of meal timing and not going >4-5 hours between meals. Encouraged adding protein to each meal to support glucose control. Provided list of protein foods. Discussed best protein options for heart health and to alleviate hunger. Patient agreeable. 10. Discussed healthy weight loss through diet and exercise to increase lean muscle mass.? Pt agreeable to walking daily. MONITOR/EVALUATE: Anticipate good compliance.? Nutrition follow up scheduled for 2 mo to review BG, weight, food record and discuss protein/fat.
== END ==
PROVIDERS: PCP Family Medicine; Visit Provider Family Medicine
DX: E11.9 Type 2 diabetes mellitus without complications (principal); E78.00 Pure hypercholesterolemia, unspecified; Z79.84 Long term (current) use of oral hypoglycemic drugs
CPT/HCPCS: 97802

== ENCOUNTER → 2018-12-25 15:03 | Outpatient (CLI) | payer OTHER, MEDICARE, SELFPAY ==
[2018-11-06 01:00] VITALS: BMI 30.2
[2018-12-25 16:19] LABS: Hemoglobin A1C% w Est Avg Glu 8.3 % (4.0-6.0)
[2018-12-25 16:50] LABS: Cholesterol 91 mg/dL (140-199); HDL Cholesterol 44 mg/dL (40-60); LDL Cholesterol Calculated 9 mg/dL (<100); Triglycerides 188 mg/dL (35-150)
== END ==
PROVIDERS: PCP Family Medicine; Visit Provider Family Medicine
DX: E11.9 Type 2 diabetes mellitus without complications (principal); E78.5 Hyperlipidemia, unspecified
CPT/HCPCS: 36415; 80061; 83036

== ENCOUNTER → 2019-02-18 13:20 | Outpatient (CLI) | payer OTHER, MEDICARE, SELFPAY ==
[2018-11-06 01:00] VITALS: BMI 30.2
--- NOTE | 2019-02-18 14:04 | DIET.PN ---
INDIVIDUAL NUTRITION ASSESSMENT ASSESS: 63 yof seen for diabetes nutrition F/U. Pt recently had new labs done, and is pleased with results. She has increased physical activity and is trying to eat dinner earlier in the evenings. Pt also reports she has discontinued drinking every night. Pt has been monitoring BG daily. There are some concerns with frequent elevated FBG including several >200. LABS: A1c: 8.3 FB-085 2 hr PP: 100-190 Tr Chol: 91 HDL: 44 LDL: 9 DIET: B: oatmeal or eggs, meat and toast L: usually the lightest meal D: Largest meal usually pretty late in the evening EXERCISE: walking 4 miles 3d/wk NUTRITION Dx 1. Altered nutrition related labs r/t type 2 DM, inconsistent carbohydrate intake as evidenced by pt report, dietary recall. INTERVENTION 1. Reviewed blood sugar log and implications/reasons for elevated/decreased blood sugar. Pt with good understanding. 2. Reviewed carbohydrate counting and importance of consistent carbohydrate intake. 3. Reviewed meal intake and importance of balanced meals (julián to prevent overeating). 4. Discussed consuming evening meal at least 3 hrs before bedtime and assisted patient in creating bedtime snack options including 1 serv carb/ protein. Pt goals: 1. Pt would like to see A1c at 7.5 by f/u labs. 2. Pt would like to decrease medication management through increasing PA and meal planning. MONITOR/EVALUATE: Pt receptive to information provided. Will schedule follow-up after new labs.
== END ==
PROVIDERS: PCP Family Medicine; Visit Provider Family Medicine
DX: E11.9 Type 2 diabetes mellitus without complications (principal)
CPT/HCPCS: 97803

== ENCOUNTER → 2019-02-21 10:34 | Outpatient (CLI) | payer OTHER, MEDICARE, SELFPAY ==
[2018-11-06 01:00] VITALS: BMI 30.2
[2019-02-21 12:38] LABS: BUN Creatinine Ratio 22.9 (6-22); Blood Urea Nitrogen 16 mg/dL (7-17); Calcium 9.9 mg/dL (8.4-10.2); Carbon Dioxide 24 mmol/L (22-32); Chloride 103 mmol/L (98-107); Cholesterol 139 mg/dL (140-199); Estimated Glomerular Filt Rate > 60.0 mL/min (>60); Glucose 156 mg/dL (80-110); HDL Cholesterol 71 mg/dL (40-60); HEMOLYSIS 18 (0-50); LDL Cholesterol Calculated 19 mg/dL (<100); Potassium 4.6 mmol/L (3.4-5.1); Sodium 138 mmol/L (137-145); Triglycerides 243 mg/dL (35-150)
== END ==
PROVIDERS: PCP Family Medicine; Visit Provider Family Medicine
DX: E11.9 Type 2 diabetes mellitus without complications (principal)
CPT/HCPCS: 36415; 80048; 80061; 83036

== ENCOUNTER → 2019-02-26 10:30 | Outpatient (CLI) | payer OTHER, MEDICARE, SELFPAY ==
[2018-11-06 01:00] VITALS: BMI 30.2
[2019-02-26 12:51] LABS: Vitamin B12 Reflex MMA if <400 391 pg/mL (239-931)
[2019-02-26 13:15] LABS: Folate > 20.0 ng/mL (2.76-20.0)
[2019-03-02 12:20] LABS: Homocysteine 8.6 umol/L (< 10.4)
[2019-03-04 18:30] LABS: Methylmalonic Acid 148 nmol/L (87-318)
== END ==
PROVIDERS: PCP Family Medicine; Visit Provider Family Medicine
DX: D53.9 Nutritional anemia, unspecified (principal); E11.9 Type 2 diabetes mellitus without complications; E78.5 Hyperlipidemia, unspecified; D53.1 Other megaloblastic anemias, not elsewhere classified
CPT/HCPCS: 36415; 82607; 82746; 83090; 83921

== ENCOUNTER → 2019-02-27 11:55 | Outpatient (CLI) | payer OTHER, MEDICARE, SELFPAY ==
[2018-11-06 01:00] VITALS: BMI 30.2
[2019-02-27 13:05] LABS: Add Manual Diff / Slide Review NO; Basophils Absolute Auto 100 /uL (0-100); Basophils Percent Auto 0.9 % (0-2); Eosinophils Absolute Auto 300 /uL (0-450); Eosinophils Percent Auto 4.7 % (2-4); Hematocrit 38.2 % (36-46); Hemoglobin 12.7 g/dL (12.0-16.0); Lymphocytes Absolute Auto 3700 /uL (1100-4500); Lymphocytes Percent Auto 52.8 % (25-40); Mean Corpuscular HGB Conc 33.2 % (30-36); Mean Corpuscular Hemoglobin 31.2 PG (26-34); Mean Corpuscular Volume 93.9 fL (80-100); Monocytes Absolute Auto 500 /uL (0-900); Monocytes Percent Auto 7.8 % (3-14); Neutrophils Absolute Auto 2400 /uL (1500-7000); Neutrophils Percent Auto 33.8 % (50-75); Platelet Count 293 X10^3/uL (150-400); Red Blood Cell Count 4.07 X10^6/uL (4.0-5.2)
== END ==
PROVIDERS: PCP Family Medicine; Visit Provider Family Medicine
DX: E78.1 Pure hyperglyceridemia (principal); K85.90 Acute pancreatitis without necrosis or infection, unspecified; Z13.6 Encounter for screening for cardiovascular disorders
CPT/HCPCS: 85025

== ENCOUNTER → 2019-05-07 11:44 | Outpatient (CLI) | payer OTHER, MEDICARE, SELFPAY ==
[2018-11-06 01:00] VITALS: BMI 30.2
--- NOTE | 2019-05-07 | DI.MG.S_ITS ---
BILATERAL DIGITAL SCREENING MAMMOGRAM 3D/2D WITH CAD: 05/07/2019 CLINICAL: Routine screening. Comparison is made to exams dated: 05/06/2018 mammogram, 04/23/2017 mammogram, and 04/16/2016 mammogram - [facility]. The tissue of both breasts is heterogeneously dense. This may lower the sensitivity of mammography. Current study was also evaluated with a Computer Aided Detection (CAD) system. There are benign calcifications in both breasts. No significant masses, calcifications, or other findings are seen in either breast. There has been no significant interval change. IMPRESSION: There is no mammographic evidence of malignancy. A 1 year screening mammogram is recommended. This exam was interpreted at Station ID: [id number]. NOTE: For mammograms, a report in lay terms will be sent to the patient. Approximately 15% of breast malignancies will not be visualized mammographically. In the management of a palpable breast mass, a negative mammogram must not discourage biopsy of a clinically suspicious lesion. Electronically Signed By: Martin vincent/keagan:05/07/2019 12:51:53 letter sent: Normal Exam ACR BI-RADS Category 2: Benign Finding(s) 3342F
== END ==
PROVIDERS: PCP Family Medicine; Visit Provider Family Medicine
DX: Z12.31 Encounter for screening mammogram for malignant neoplasm of breast (principal)
CPT/HCPCS: 77063; 77067

== ENCOUNTER → 2019-06-02 12:07 | Outpatient (CLI) | payer OTHER, MEDICARE, SELFPAY ==
[2018-11-06 01:00] VITALS: BMI 30.2
[2019-06-02 12:48] LABS: Hemoglobin A1C% w Est Avg Glu 6.4 % (4.0-6.0)
[2019-06-02 13:24] LABS: BUN Creatinine Ratio 21.7 (6-22); Blood Urea Nitrogen 13 mg/dL (7-17); Calcium 10.2 mg/dL (8.4-10.2); Carbon Dioxide 27 mmol/L (22-32); Chloride 100 mmol/L (98-107); Cholesterol 109 mg/dL (140-199); Estimated Glomerular Filt Rate > 60.0 mL/min (>60); Glucose 192 mg/dL (80-110); HDL Cholesterol 55 mg/dL (40-60); HEMOLYSIS 16 (0-50); LDL Cholesterol Calculated 2 mg/dL (<100); Potassium 4.3 mmol/L (3.4-5.1); Sodium 139 mmol/L (137-145); Triglycerides 260 mg/dL (35-150)
== END ==
PROVIDERS: PCP Family Medicine; Visit Provider Family Medicine
DX: E11.9 Type 2 diabetes mellitus without complications (principal); E78.1 Pure hyperglyceridemia; K85.90 Acute pancreatitis without necrosis or infection, unspecified
CPT/HCPCS: 36415; 80048; 80061; 83036

== ENCOUNTER → 2019-09-07 12:13 | Outpatient (CLI) | payer OTHER, MEDICARE, SELFPAY ==
[2018-11-06 01:00] VITALS: BMI 30.2
[2019-09-07 13:00] LABS: Hemoglobin A1C% w Est Avg Glu 7.3 % (4.0-6.0)
[2019-09-07 13:59] LABS: Blood Urea Nitrogen 14 mg/dL (7-17); Carbon Dioxide 29 mmol/L (22-32); Chloride 102 mmol/L (98-107); Estimated Glomerular Filt Rate > 60.0 mL/min (>60); Glucose 206 mg/dL (80-110); HEMOLYSIS < 15 (0-50); Sodium 141 mmol/L (137-145)
== END ==
PROVIDERS: PCP Family Medicine; Visit Provider Family Medicine
DX: E11.9 Type 2 diabetes mellitus without complications (principal)
CPT/HCPCS: 36415; 80048; 83036

== ENCOUNTER → 2019-11-25 12:57 | Outpatient (CLI) | payer OTHER, MEDICARE, SELFPAY ==
[2018-11-06 01:00] VITALS: BMI 30.2
--- NOTE | 2019-11-25 12:59 | DI.US.S_ITS ---
PROCEDURE: US PELVIC COMPLETE INDICATIONS: PMB TECHNIQUE: Real-time scanning was performed of the pelvic organs, with image documentation. Additional endovaginal scanning was necessary due to incomplete visualization of the adnexal and endometrial structures by transabdominal scanning. COMPARISON: None. FINDINGS: Transabdominal scanning: Limited scanning through the kidneys shows no hydronephrosis. No pathologic free abdominal or pelvic fluid. Endovaginal scanning: Uterus: Uterus is normal in size at 3.5 x 5.3 x 7.4 cm. The endometrium measures 25.2 mm in combined thickness, prominently abnormal in this postmenopausal patient raising a high degree of concern for underlying endometrial malignancy as the potential cause. Ovaries: Not seen bilaterally likely due to postmenopausal ovarian atrophy and overlying bowel gas. IMPRESSION: Prominently abnormal endometrial lining thickness measuring up to 2.5 cm, with likelihood of underlying malignancy in this clinical circumstance. Gynecological surgical clinical reviewer consultation is recommended. Nonvisualization of the ovaries bilaterally as noted. Dictated by: Bret Villegas M.D. on 11/25/2019 at 14:47 Approved by: Bret Villegas M.D. on 11/25/2019 at 14:49
== END ==
PROVIDERS: PCP Family Medicine; Referring Provider Obstetrics & Gynecology; Visit Provider Obstetrics & Gynecology
DX: N95.0 Postmenopausal bleeding (principal); R93.89 Abnormal findings on diagnostic imaging of other specified body structures
CPT/HCPCS: 76830; 76856

== ENCOUNTER → 2020-04-18 13:01 | Outpatient (CLI) | payer OTHER, MEDICARE, SELFPAY ==
[2018-11-06 01:00] VITALS: BMI 30.2
[2020-04-18 13:48] LABS: Alanine Aminotransferase 43 IU/L (<35); Albumin Globulin Ratio 1.8 (1.0-2.8); Alkaline Phosphatase 37 U/L (38-126); Aspartate Aminotransferase 43 IU/L (14-36); BUN Creatinine Ratio 21.9 (6-22); Bilirubin Total 0.7 mg/dL (0.2-1.3); Blood Urea Nitrogen 14 mg/dL (7-17); Calcium 10.5 mg/dL (8.4-10.2); Carbon Dioxide 30 mmol/L (22-32); Chloride 99 mmol/L (98-107); Estimated Glomerular Filt Rate > 60.0 mL/min (>60); Globulin 2.8 g/dL (1.7-4.1); Glucose 227 mg/dL (80-110); HEMOLYSIS < 15 (0-50); Potassium 4.2 mmol/L (3.4-5.1); Sodium 137 mmol/L (137-145); Total Protein 7.8 g/dL (6.3-8.2)
[2020-04-18 14:36] LABS: Add Manual Diff / Slide Review NO; Basophils Absolute Auto 100 /uL (0-100); Basophils Percent Auto 0.9 % (0-2); Eosinophils Absolute Auto 200 /uL (0-450); Eosinophils Percent Auto 2.7 % (2-4); Hematocrit 39.1 % (36-46); Hemoglobin 13.4 g/dL (12.0-16.0); Lymphocytes Absolute Auto 2600 /uL (1100-4500); Lymphocytes Percent Auto 41.9 % (25-40); Mean Corpuscular HGB Conc 34.2 % (30-36); Mean Corpuscular Hemoglobin 31.9 PG (26-34); Mean Corpuscular Volume 93.2 fL (80-100); Monocytes Absolute Auto 700 /uL (0-900); Monocytes Percent Auto 11.2 % (3-14); Neutrophils Absolute Auto 2700 /uL (1500-7000); Neutrophils Percent Auto 43.3 % (50-75); Platelet Count 278 X10^3/uL (150-400); Red Cell Distribution Width 12.5 % (11.6-14.8); White Blood Cell Count 6.1 X10^3/uL (4.5-11.0)
[2020-04-18 14:47] LABS: Hemoglobin A1C% w Est Avg Glu 8.3 % (4.0-6.0)
== END ==
PROVIDERS: PCP Family Medicine; Referring Provider Family Medicine; Visit Provider Family Medicine
DX: E11.9 Type 2 diabetes mellitus without complications (principal); E78.1 Pure hyperglyceridemia; K85.81 Other acute pancreatitis with uninfected necrosis
CPT/HCPCS: 36415; 80053; 83036; 85025

== ENCOUNTER → 2020-05-10 12:16 | Outpatient (CLI) | payer OTHER, MEDICARE, SELFPAY ==
[2018-11-06 01:00] VITALS: BMI 30.2
--- NOTE | 2020-05-10 | DI.MG.S_ITS ---
BILATERAL DIGITAL SCREENING MAMMOGRAM 3D/2D WITH CAD: 05/10/2020 CLINICAL: Routine screening. Comparison is made to exams dated: 05/07/2019 mammogram, 05/06/2018 mammogram, and 04/23/2017 mammogram - [facility]. The tissue of both breasts is heterogeneously dense. This may lower the sensitivity of mammography. Current study was also evaluated with a Computer Aided Detection (CAD) system. There are grouped fine punctate calcifications in the right breast at 10 o'clock middle depth. These are more prominent and increased in number. No other significant masses, calcifications, or other findings are seen in either breast. IMPRESSION: INCOMPLETE: NEEDS ADDITIONAL IMAGING EVALUATION The grouped fine punctate calcifications in the right breast are indeterminate. Mediolateral and spot magnification views are recommended. This exam was interpreted at Station ID: [id number]. NOTE: For mammograms, a report in lay terms will be sent to the patient. Approximately 15% of breast malignancies will not be visualized mammographically. In the management of a palpable breast mass, a negative mammogram must not discourage biopsy of a clinically suspicious lesion. Electronically Signed By: Martin Cesar M.D. aty/:05/10/2020 13:24:48 letter sent: Additional Imaging Needed ACR BI-RADS Category 0: Incomplete 3340F
== END ==
PROVIDERS: PCP Family Medicine; Referring Provider Family Medicine; Visit Provider Family Medicine
DX: Z12.31 Encounter for screening mammogram for malignant neoplasm of breast (principal)
CPT/HCPCS: 77063; 77067

== ENCOUNTER → 2020-06-08 12:27 | Outpatient (CLI) | payer OTHER, MEDICARE, SELFPAY ==
[2018-11-06 01:00] VITALS: BMI 30.2
--- NOTE | 2020-06-08 13:02 | DI.MG.S_ITS ---
Patient Name: OZ MARIA date: 1955 Sex: F Attending Physician: Lobo Indications: Date: 06/08/2020 12:59 At the request of: JAMA ESTEVEZ Procedure: MM special view RT UNILATERAL RIGHT DIGITAL DIAGNOSTIC MAMMOGRAM 3D/2D WITH ADDITIONAL VIEWS: 06/08/2020 CLINICAL: Additional evaluation requested from prior study. Comparison is made to exams dated: 05/10/2020 mammogram, 05/07/2019 mammogram, and 05/06/2018 mammogram - [facility]. The tissue of right breast is heterogeneously dense. This may lower the sensitivity of mammography. There are grouped fine punctate calcifications in the right breast at 10 o'clock middle depth. These are more unchanged from the most recent screening mammogram but have slightly increased increased in number and prominence from more remote exams. There is no associated mass or architectural distortion. No other significant masses or calcifications are seen in the breast. IMPRESSION: PROBABLY BENIGN Indeterminate but probably benign grouped fine punctate calcifications in the right breast. Follow-up mammogram in 6 months is recommended to demonstrate stability. This exam was interpreted at Station ID: [id number]. NOTE: For mammograms, a report in lay terms will be sent to the patient. Approximately 15% of breast malignancies will not be visualized mammographically. In the management of a palpable breast mass, a negative mammogram must not discourage biopsy of a clinically suspicious lesion. Electronically Signed By: Serg Clark M.D. jr/:06/08/2020 13:18:26 letter sent: Followup Recommended ACR BI-RADS Category 3: Probably benign 3343F Continued Report - Page 2 of 2 Patient Name: OZ MARIA date: 1955 Sex: F Attending Physician: Lobo Indications: Date: 06/08/2020 12:59 At the request of: JAMA ESTEVEZ Procedure: MM special view RT
== END ==
PROVIDERS: PCP Family Medicine; Referring Provider Family Medicine; Visit Provider Family Medicine
DX: R92.8 Other abnormal and inconclusive findings on diagnostic imaging of breast (principal); R92.1 Mammographic calcification found on diagnostic imaging of breast
CPT/HCPCS: 77065; G0279

== ENCOUNTER → 2020-06-20 13:25 | Outpatient (CLI) | payer OTHER, MEDICARE, SELFPAY ==
[2018-11-06 01:00] VITALS: BMI 30.2
[2020-06-20 14:03] LABS: Hemoglobin A1C% w Est Avg Glu 8.7 % (4.0-6.0)
[2020-06-20 14:06] LABS: Alanine Aminotransferase 51 IU/L (<35); Albumin 4.7 g/dL (3.5-5.0); Albumin Globulin Ratio 1.7 (1.0-2.8); Alkaline Phosphatase 33 U/L (38-126); Aspartate Aminotransferase 50 IU/L (14-36); BUN Creatinine Ratio 16.4 (6-22); Bilirubin Total 0.8 mg/dL (0.2-1.3); Blood Urea Nitrogen 11 mg/dL (7-17); Calcium 10.1 mg/dL (8.4-10.2); Carbon Dioxide 31 mmol/L (22-32); Chloride 102 mmol/L (98-107); Cholesterol 116 mg/dL (140-199); Estimated Glomerular Filt Rate > 60.0 mL/min (>60); Globulin 2.7 g/dL (1.7-4.1); Glucose 186 mg/dL (80-110); HDL Cholesterol 50 mg/dL (40-60); HEMOLYSIS < 15 (0-50); LDL Cholesterol Calculated -3 mg/dL (<100); Potassium 4.4 mmol/L (3.4-5.1); Sodium 140 mmol/L (137-145); Total Protein 7.4 g/dL (6.3-8.2); Triglycerides 346 mg/dL (35-150)
== END ==
PROVIDERS: PCP Family Medicine; Referring Provider Family Medicine; Visit Provider Family Medicine
DX: E11.9 Type 2 diabetes mellitus without complications (principal); E78.5 Hyperlipidemia, unspecified; R79.89 Other specified abnormal findings of blood chemistry
CPT/HCPCS: 36415; 80053; 80061; 83036

== ENCOUNTER → 2020-06-24 12:35 | Outpatient (CLI) | payer OTHER, MEDICARE, SELFPAY ==
[2018-11-06 01:00] VITALS: BMI 30.2
--- NOTE | 2020-06-24 12:37 | DI.US.S_ITS ---
PROCEDURE: US ABDOMEN COMPLETE INDICATIONS: ABNORMAL LIVER FUNCTION TESTS TECHNIQUE: Real-time scanning was performed of the abdominal and retroperitoneal organs, with image documentation. COMPARISON: [facility], CT, CT ABDOMEN PELVIS W CON, 11/09/2018, 10:39. [facility], US, US ABDOMEN COMPLETE, 11/05/2018, 23:28. FINDINGS: Liver: Liver is normal in size and homogeneous in echotexture, prominently hyperechoic and mild hepatomegaly is present, consistent with fatty infiltration. Gallbladder: The gallbladder appears normal Biliary ducts: Intrahepatic bile ducts are non-dilated. Extrahepatic bile duct caliber measures 4.0 mm. Normal is 6-7 mm or less in diameter, or 10 mm or less post-cholecystectomy. Pancreas: Visualized portions of the pancreas are sonographically normal but much of the pancreas is poorly seen due to bowel gas. Spleen: Spleen is normal in size and homogeneous in echotexture. Kidneys: Kidneys are normal in size and echotexture. Right kidney measures 12.8 cm long; left kidney measures 11.9 cm long. No hydronephrosis or nephrolithiasis. At the right kidney inferiorly there is a hyperechoic 5 x 6 x 7 mm structure that likely is a small angiomyolipoma. The right kidney superiorly demonstrates a small cyst measuring 6 x 7 x 8 mm with low level internal echoes. The left kidney at its middle 3rd demonstrates a complex heterogeneous suspicious vascular mass measuring 1.8 x 2.5 x 2.2 cm. . Aorta: Visualized aorta is normal in caliber at less than 3 cm. Iliacs: Proximal common iliac arteries are normal in caliber at less than 2.5 cm. IVC: Intrahepatic inferior vena cava is patent. Miscellaneous: No free abdominal fluid. IMPRESSION: Prominent fatty infiltration throughout the liver. Mild hepatomegaly. The left kidney appears to contain a cortical mass-like lesion measuring 1.8 x 2.[address] utilizing renal neoplasm protocol appears warranted. Alternatively, depending on the clinical status, this patient might be followed by sequential ultrasound scanning. It is noted that on a prior CT from October 2018 a malignant-appearing mass involving either kidney was not found. Dictated by: Bret Villegas M.D. on 06/24/2020 at 16:59 Approved by: Bret Villegas M.D. on 06/24/2020 at 17:04
== END ==
PROVIDERS: PCP Family Medicine; Referring Provider Family Medicine; Visit Provider Family Medicine
DX: R79.89 Other specified abnormal findings of blood chemistry (principal); K76.0 Fatty (change of) liver, not elsewhere classified; R16.0 Hepatomegaly, not elsewhere classified; N28.89 Other specified disorders of kidney and ureter; N28.1 Cyst of kidney, acquired
CPT/HCPCS: 76700

== ENCOUNTER → 2020-07-04 12:36 | Outpatient (CLI) | payer OTHER, MEDICARE, SELFPAY ==
[2018-11-06 01:00] VITALS: BMI 30.2
--- NOTE | 2020-07-04 12:44 | DI.CT.S_ITS ---
PROCEDURE: CT ABDOMEN WO/W CON INDICATIONS: Left renal mass TECHNIQUE: Optional 5 mm thick noncontrast images acquired from the diaphragm to the iliac crests. After the administration of intravenous contrast, 5 mm thick images again acquired from the diaphragm to the iliac crests in the arterial and urographic phases. 5 mm thick coronal and sagittal reformats were then acquired. For radiation dose reduction, the following was used: automated exposure control, adjustment of mA and/or kV according to patient size. COMPARISON: [facility], CT, CT ABDOMEN PELVIS W CON, 11/09/2018, 10:39. [facility], US, US ABDOMEN COMPLETE, 06/24/2020, 13:01. FINDINGS: Image quality: Excellent. Lung bases: Lung bases are clear. Heart size is normal. Genitourinary: Kidneys are normal in size and symmetric in enhancement. No solid renal mass is identified in the mid left kidney. The masslike structure seen on ultrasound is probably caused by dromedary hump. There is a 5 mm low-density nodule in the mid right kidney, probably a small angiomyolipoma. Other solid organs: There is hepatic steatosis. Liver is normal in size and enhancement. Gallbladder is normal. Biliary system is non-dilated. Pancreas enhances normally. Spleen is normal in size and enhancement. No adrenal nodules. Peritoneum and bowel: Unenhanced bowel loops are normal in wall thickness and caliber. No free fluid or air. Nodes and vessels: No retroperitoneal or mesenteric adenopathy by size criteria. Aorta and inferior vena cava are normal in caliber. Bones: No suspicious bony lesions. No vertebral body compression fractures. Miscellaneous: No ventral hernias. IMPRESSION: 1. No left renal mass is visualized on CT. The masslike area seen on the comparison ultrasound is likely caused by artifact or dromedary hump. 2. A 5 mm hypodensity in mid left kidney, probably the small angiomyolipoma seen on ultrasound. The small cyst in the superior pole of the right kidney seen on ultrasound is not well visualized on CT, probably due to its small size. 3. Hepatic steatosis. Dictated by: Jany Strauss M.D. on 07/04/2020 at 15:33 Approved by: Jany Strauss M.D. on 07/04/2020 at 18:30
== END ==
PROVIDERS: PCP Family Medicine; Referring Provider Family Medicine; Visit Provider Family Medicine
DX: N28.89 Other specified disorders of kidney and ureter (principal); N28.1 Cyst of kidney, acquired; K76.0 Fatty (change of) liver, not elsewhere classified
CPT/HCPCS: 74170; Q9967

== ENCOUNTER → 2020-08-13 12:42 | Outpatient (CLI) | payer OTHER, MEDICARE, SELFPAY ==
[2018-11-06 01:00] VITALS: BMI 30.2
[2020-08-13 13:19] LABS: Hemoglobin A1C% w Est Avg Glu 8.5 % (4.0-6.0)
[2020-08-13 13:27] LABS: Alanine Aminotransferase 52 IU/L (<35); Albumin 4.6 g/dL (3.5-5.0); Albumin Globulin Ratio 1.6 (1.0-2.8); Alkaline Phosphatase 32 U/L (38-126); Aspartate Aminotransferase 55 IU/L (14-36); BUN Creatinine Ratio 20.3 (6-22); Bilirubin Total 0.6 mg/dL (0.2-1.3); Blood Urea Nitrogen 12 mg/dL (7-17); Calcium 9.6 mg/dL (8.4-10.2); Carbon Dioxide 28 mmol/L (22-32); Chloride 102 mmol/L (98-107); Estimated Glomerular Filt Rate > 60.0 mL/min (>60); Globulin 2.9 g/dL (1.7-4.1); Glucose 281 mg/dL (80-110); HEMOLYSIS 16 (0-50); Potassium 4.1 mmol/L (3.4-5.1); Sodium 138 mmol/L (137-145); Total Protein 7.5 g/dL (6.3-8.2)
== END ==
PROVIDERS: PCP Family Medicine; Referring Provider Family Medicine; Visit Provider Family Medicine
DX: E11.9 Type 2 diabetes mellitus without complications (principal)
CPT/HCPCS: 36415; 80053; 83036

== ENCOUNTER → 2020-11-28 12:37 | Outpatient (CLI) | payer OTHER, MEDICARE, SELFPAY ==
[2020-08-15 10:49] VITALS: BMI 30.2
--- NOTE | 2020-11-28 12:39 | DI.MG.S_ITS ---
UNILATERAL RIGHT DIGITAL DIAGNOSTIC MAMMOGRAM 3D/2D SHORT-TERM FOLLOW-UP: 11/28/2020 CLINICAL: Short term follow up. Comparison is made to exams dated: 06/08/2020 mammogram, 05/10/2020 mammogram, 05/07/2019 mammogram, and 05/06/2018 mammogram - [facility]. The tissue of right breast is heterogeneously dense. This may lower the sensitivity of mammography. There are regional fine calcifications in the right breast at 10 o'clock middle depth. These are not significantly changed. No other significant masses or calcifications are seen in the breast. IMPRESSION: PROBABLY BENIGN The regional fine calcifications in the right breast are probably benign. A follow-up mammogram in 6 months is recommended. A follow-up mammogram in 6 months is recommended to demonstrate stability. Patient will be due for mammography of the contralateral breast at that time. This exam was interpreted at Station ID: [id number]. NOTE: For mammograms, a report in lay terms will be sent to the patient. Approximately 15% of breast malignancies will not be visualized mammographically. In the management of a palpable breast mass, a negative mammogram must not discourage biopsy of a clinically suspicious lesion. Electronically Signed By: Pillo Fontenot M.D. ddgil/:11/28/2020 13:20:03 letter sent: Followup Recommended ACR BI-RADS Category 3: Probably benign 3343F
[2020-11-28 14:57] LABS: Hemoglobin A1C% w Est Avg Glu 8.9 % (4.0-6.0)
[2020-11-28 16:17] LABS: Alanine Aminotransferase 36 IU/L (<35); Albumin 4.9 g/dL (3.5-5.0); Albumin Globulin Ratio 1.8 (1.0-2.8); Alkaline Phosphatase 32 U/L (38-126); Aspartate Aminotransferase 44 IU/L (14-36); BUN Creatinine Ratio 20.3 (6-22); Bilirubin Total 0.4 mg/dL (0.2-1.3); Blood Urea Nitrogen 15 mg/dL (7-17); Calcium 10.6 mg/dL (8.4-10.2); Carbon Dioxide 29 mmol/L (22-32); Chloride 104 mmol/L (98-107); Estimated Glomerular Filt Rate > 60.0 mL/min (>60); Globulin 2.8 g/dL (1.7-4.1); Glucose 163 mg/dL (80-110); HEMOLYSIS < 15 (0-50); Potassium 4.1 mmol/L (3.4-5.1); Sodium 141 mmol/L (137-145); Total Protein 7.7 g/dL (6.3-8.2)
== END ==
PROVIDERS: PCP Family Medicine; Referring Provider Family Medicine; Visit Provider Family Medicine
DX: R92.8 Other abnormal and inconclusive findings on diagnostic imaging of breast (principal); R92.1 Mammographic calcification found on diagnostic imaging of breast; E11.9 Type 2 diabetes mellitus without complications; E78.2 Mixed hyperlipidemia; I10 Essential (primary) hypertension
CPT/HCPCS: 36415; 77065; 80053; 83036; G0279

== ENCOUNTER → 2020-12-22 13:05 | Outpatient (CLI) | payer MEDICARE, SELFPAY ==
[2020-08-15 10:49] VITALS: BMI 30.2
[2020-12-22] MEDS: COVID-19 VACC #1, MRNA(MOD) 100 MCG/0.5 ML VIAL IM (13:09)
== END ==
PROVIDERS: PCP Family Medicine; Visit Provider Internal Medicine
DX: Z23 Encounter for immunization (principal)
CPT/HCPCS: 0011A; 91301

== ENCOUNTER → 2021-01-17 13:27 | Outpatient (CLI) | payer OTHER, MEDICARE, SELFPAY ==
[2020-08-15 10:49] VITALS: BMI 30.2
[2021-01-17 13:58] LABS: Appearance Urine UA CLEAR; Bilirubin Urine UA NEGATIVE (NEGATIVE); Color Urine UA YELLOW; Glucose Urine UA 3+ g/dL (Negative); Ketones Urine UA NEGATIVE (NEGATIVE); Leukocyte Esterase Urine UA NEGATIVE (NEGATIVE); Nitrite Urine UA POSITIVE (Negative); Occult Blood Urine UA 1+ (Negative); Protein Urine UA NEGATIVE (Negative); Urobilinogen Urine UA 0.2 E.U./dL (0.2)
[2021-01-17 14:33] LABS: Bacteria Urine Many (>30); Culture Indicated Urine Specimen Cultured; RBC Urine 1-5/HPF (0-5/HPF); Squamous Epithelial Cell Urine 0-1 /HPF (0-5/HPF); WBC Urine 1-5/HPF (0-5/HPF)
== END ==
PROVIDERS: PCP Family Medicine; Referring Provider Family Medicine; Visit Provider Family Medicine
DX: R30.0 Dysuria (principal)
CPT/HCPCS: 81001; 87077; 87086; 87186

== ENCOUNTER → 2021-01-19 12:57 | Outpatient (CLI) | payer MEDICARE, SELFPAY ==
[2020-08-15 10:49] VITALS: BMI 30.2
[2021-01-19] MEDS: COVID-19 VACC #2, MRNA(MOD) 100 MCG/0.5 ML VIAL IM (13:01)
== END ==
PROVIDERS: PCP Family Medicine; Visit Provider Internal Medicine
DX: Z23 Encounter for immunization (principal)
CPT/HCPCS: 0012A; 91301

== ENCOUNTER → 2021-02-08 14:14 | Outpatient (CLI) | payer OTHER, MEDICARE, SELFPAY ==
[2020-08-15 10:49] VITALS: BMI 30.2
[2021-02-08 14:32] LABS: RBC Urine None Seen (0-5/HPF)
[2021-02-08 15:47] LABS: Alanine Aminotransferase 31 IU/L (<35); Albumin 4.9 g/dL (3.5-5.0); Albumin Globulin Ratio 1.6 (1.0-2.8); Alkaline Phosphatase 33 U/L (38-126); Aspartate Aminotransferase 34 IU/L (14-36); BUN Creatinine Ratio 18.3 (6-22); Bilirubin Total 0.6 mg/dL (0.2-1.3); Blood Urea Nitrogen 13 mg/dL (7-17); Calcium 10.3 mg/dL (8.4-10.2); Carbon Dioxide 28 mmol/L (22-32); Chloride 101 mmol/L (98-107); Estimated Glomerular Filt Rate > 60.0 mL/min (>60); Glucose 79 mg/dL (80-110); HEMOLYSIS < 15 (0-50); Potassium 4.1 mmol/L (3.4-5.1); Sodium 141 mmol/L (137-145); Total Protein 7.9 g/dL (6.3-8.2)
[2021-02-08 15:58] LABS: Hemoglobin A1C% w Est Avg Glu 6.9 % (4.0-6.0)
[2021-02-08 17:17] LABS: Appearance Urine UA SL CLOUDY; Bacteria Urine Many (>30); Bilirubin Urine UA NEGATIVE (NEGATIVE); Color Urine UA YELLOW; Culture Indicated Urine Specimen Cultured; Glucose Urine UA 2+ g/dL (Negative); Ketones Urine UA TRACE (NEGATIVE); Leukocyte Esterase Urine UA TRACE (NEGATIVE); Nitrite Urine UA POSITIVE (Negative); Occult Blood Urine UA TRACE-INTACT (Negative); Protein Urine UA TRACE (Negative); Urobilinogen Urine UA 0.2 E.U./dL (0.2); WBC Urine >100/HPF (0-5/HPF)
[2021-02-09 13:36] LABS: Calcium 10.2 mg/dL (8.7-10.3); Parathyroid Hormone, Intact 43 pg/mL (15-65)
== END ==
PROVIDERS: PCP Family Medicine; Referring Provider Family Medicine; Visit Provider Family Medicine
DX: E11.9 Type 2 diabetes mellitus without complications (principal); E78.2 Mixed hyperlipidemia; I10 Essential (primary) hypertension; K76.0 Fatty (change of) liver, not elsewhere classified; R79.89 Other specified abnormal findings of blood chemistry; R30.0 Dysuria
CPT/HCPCS: 36415; 80053; 81001; 82310; 83036; 83970; 87077; 87086; 87186

== ENCOUNTER → 2021-06-15 09:17 | Outpatient (CLI) | payer OTHER, MEDICARE, SELFPAY ==
[2020-08-15 10:49] VITALS: BMI 30.2
--- NOTE | 2021-06-15 09:18 | DI.MG.S_ITS ---
BILATERAL DIGITAL DIAGNOSTIC MAMMOGRAM 3D/2D SHORT-TERM FOLLOW-UP: 06/15/2021 CLINICAL: Short term follow up of the right breast, due for bilateral imaging. Comparison is made to exams dated: 11/28/2020 mammogram, 06/08/2020 mammogram, 05/10/2020 mammogram, 05/07/2019 mammogram, and 05/06/2018 mammogram - [facility]. The tissue of both breasts is heterogeneously dense. This may lower the sensitivity of mammography. There are regional fine calcifications in the right breast at 10 o'clock middle depth. These are not significantly changed. No other significant masses, calcifications, or other findings are seen in either breast. IMPRESSION: PROBABLY BENIGN The regional fine calcifications in the right breast are probably benign. A follow-up diagnostic mammogram in 12 months is recommended to demonstrate long-term stability. This exam was interpreted at Station ID: [id number]. NOTE: For mammograms, a report in lay terms will be sent to the patient. Approximately 15% of breast malignancies will not be visualized mammographically. In the management of a palpable breast mass, a negative mammogram must not discourage biopsy of a clinically suspicious lesion. Electronically Signed By: Blade Harrison M.D. slc/:06/15/2021 10:28:21 letter sent: Followup Recommended ACR BI-RADS Category 3: Probably benign 3343F
== END ==
PROVIDERS: PCP Family Medicine; Referring Provider Family Medicine; Visit Provider Family Medicine
DX: R92.1 Mammographic calcification found on diagnostic imaging of breast (principal); R92.8 Other abnormal and inconclusive findings on diagnostic imaging of breast
CPT/HCPCS: 77066; G0279

== ENCOUNTER → 2021-06-15 13:07 | Outpatient (CLI) | payer OTHER, MEDICARE, SELFPAY ==
[2020-08-15 10:49] VITALS: BMI 30.2
[2021-06-15 14:13] LABS: Hemoglobin A1C% w Est Avg Glu 6.6 % (4.0-6.0)
[2021-06-15 14:22] LABS: Alanine Aminotransferase 39 IU/L (<35); Albumin 4.9 g/dL (3.5-5.0); Albumin Globulin Ratio 1.7 (1.0-2.8); Alkaline Phosphatase 31 U/L (38-126); Aspartate Aminotransferase 37 IU/L (14-36); BUN Creatinine Ratio 28.4 (6-22); Bilirubin Total 0.5 mg/dL (0.2-1.3); Blood Urea Nitrogen 19 mg/dL (7-17); Calcium 10.3 mg/dL (8.4-10.2); Carbon Dioxide 31 mmol/L (22-32); Chloride 102 mmol/L (98-107); Cholesterol 153 mg/dL (140-199); Estimated Glomerular Filt Rate > 60.0 mL/min (>60); Globulin 2.9 g/dL (1.7-4.1); Glucose 107 mg/dL (80-110); HDL Cholesterol 54 mg/dL (40-60); HEMOLYSIS < 15 (0-50); Potassium 4.6 mmol/L (3.4-5.1); Sodium 140 mmol/L (137-145); Total Protein 7.8 g/dL (6.3-8.2)
[2021-06-15 14:31] LABS: Triglycerides 625 mg/dL (35-150)
[2021-06-15 14:52] LABS: TSH w/ Reflex to FT4 1.51 uIU/mL (0.47-4.68)
== END ==
PROVIDERS: PCP Family Medicine; Referring Provider Family Medicine; Visit Provider Family Medicine
DX: E11.9 Type 2 diabetes mellitus without complications (principal); E78.2 Mixed hyperlipidemia; I10 Essential (primary) hypertension; K76.0 Fatty (change of) liver, not elsewhere classified
CPT/HCPCS: 36415; 80053; 80061; 83036; 84443

== ENCOUNTER → 2021-09-27 13:11 | Outpatient (CLI) | payer OTHER, MEDICARE, SELFPAY ==
[2020-08-15 10:49] VITALS: BMI 30.2
[2021-09-27 14:02] LABS: Hemoglobin A1C% w Est Avg Glu 6.7 % (4.0-6.0)
[2021-09-27 14:04] LABS: Cholesterol 147 mg/dL (140-199); HDL Cholesterol 55 mg/dL (40-60); Triglycerides 458 mg/dL (35-150)
== END ==
PROVIDERS: PCP Family Medicine; Referring Provider Family Medicine; Visit Provider Family Medicine
DX: E11.9 Type 2 diabetes mellitus without complications (principal); E78.1 Pure hyperglyceridemia
CPT/HCPCS: 36415; 80061; 83036

== ENCOUNTER → 2021-12-18 13:11 | Outpatient (CLI) | payer OTHER, MEDICARE, SELFPAY ==
[2020-08-15 10:49] VITALS: BMI 30.2
[2021-12-18 15:07] LABS: Alanine Aminotransferase 37 IU/L (<35); Albumin 4.7 g/dL (3.5-5.0); Albumin Globulin Ratio 1.7 (1.0-2.8); Alkaline Phosphatase 27 U/L (38-126); Aspartate Aminotransferase 42 IU/L (14-36); BUN Creatinine Ratio 23.4 (6-22); Bilirubin Total 0.7 mg/dL (0.2-1.3); Blood Urea Nitrogen 15 mg/dL (7-17); Calcium 9.8 mg/dL (8.4-10.2); Carbon Dioxide 29 mmol/L (22-32); Chloride 104 mmol/L (98-107); Estimated Glomerular Filt Rate > 60.0 mL/min (>60); Globulin 2.7 g/dL (1.7-4.1); Glucose 144 mg/dL (80-110); HEMOLYSIS < 15 (0-50); Potassium 4.3 mmol/L (3.4-5.1); Sodium 142 mmol/L (137-145); Total Protein 7.4 g/dL (6.3-8.2)
[2021-12-18 15:34] LABS: Hemoglobin A1C% w Est Avg Glu 6.6 % (4.0-6.0)
== END ==
PROVIDERS: PCP Family Medicine; Referring Provider Family Medicine; Visit Provider Family Medicine
DX: E11.9 Type 2 diabetes mellitus without complications (principal); E78.1 Pure hyperglyceridemia; E78.2 Mixed hyperlipidemia; I10 Essential (primary) hypertension; K76.0 Fatty (change of) liver, not elsewhere classified
CPT/HCPCS: 36415; 80053; 83036

== ENCOUNTER → 2022-02-13 12:25 | Outpatient (CLI) | payer OTHER, MEDICARE, SELFPAY ==
[2020-08-15 10:49] VITALS: BMI 30.2
--- NOTE | 2022-02-13 12:27 | DI.US.S_ITS ---
PROCEDURE: US ABDOMEN LIMITED INDICATIONS: ELEVATED LIVER ENZYMES TECHNIQUE: Real-time scanning was performed of the abdominal and retroperitoneal organs, with image documentation. COMPARISON: [facility], US, US ABDOMEN COMPLETE, 06/24/2020, 13:01. FINDINGS: Liver: Liver is normal in size . Diffusely increased liver parenchymal echotexture is seen. No discrete hepatic lesion. Hepatopetal flow is seen in main portal vein. Gallbladder: There is no gallstone. No gallbladder wall thickening or pericholecystic fluid. No sonographic Alanis sign. Biliary ducts: Intrahepatic bile ducts are non-dilated. Extrahepatic bile duct caliber measures 6.1 mm. Normal is 6-7 mm or less in diameter, or 10 mm or less post-cholecystectomy. Pancreas: Visualized portions of the pancreas are sonographically normal. IMPRESSION: 1. Hepatic steatosis, no discrete hepatic lesion. Normal appearing gallbladder. No biliary ductal dilatation. Pancreas is within normal limits. Dictated by: Marcus Bundy M.D. on 02/13/2022 at 13:25 Approved by: Marcus Bundy M.D. on 02/13/2022 at 13:32
== END ==
PROVIDERS: PCP Family Medicine; Referring Provider Family Medicine; Visit Provider Family Medicine
DX: K76.0 Fatty (change of) liver, not elsewhere classified (principal); I10 Essential (primary) hypertension; E78.2 Mixed hyperlipidemia; E11.9 Type 2 diabetes mellitus without complications
CPT/HCPCS: 76705

== ENCOUNTER → 2022-04-26 13:16 | Outpatient (CLI) | payer OTHER, MEDICARE, SELFPAY ==
[2020-08-15 10:49] VITALS: BMI 30.2
[2022-04-26 14:05] LABS: Hemoglobin A1C% w Est Avg Glu 6.5 % (4.0-6.0)
[2022-04-26 14:20] LABS: Alanine Aminotransferase 42 IU/L (<35); Albumin 4.7 g/dL (3.5-5.0); Albumin Globulin Ratio 1.9 (1.0-2.8); Alkaline Phosphatase 28 U/L (38-126); Aspartate Aminotransferase 42 IU/L (14-36); BUN Creatinine Ratio 20.6 (6-22); Bilirubin Total 0.6 mg/dL (0.2-1.3); Blood Urea Nitrogen 14 mg/dL (7-17); Calcium 9.4 mg/dL (8.4-10.2); Carbon Dioxide 30 mmol/L (22-32); Chloride 104 mmol/L (98-107); Cholesterol 129 mg/dL (140-199); Estimated Glomerular Filt Rate > 60 mL/min (>60); Globulin 2.5 g/dL (1.7-4.1); Glucose 84 mg/dL (80-110); HDL Cholesterol 51 mg/dL (40-60); HEMOLYSIS < 15 (0-50); LDL Cholesterol Calculated 8 mg/dL (<100); Potassium 3.9 mmol/L (3.4-5.1); Sodium 141 mmol/L (137-145); Total Protein 7.2 g/dL (6.3-8.2); Triglycerides 348 mg/dL (35-150)
== END ==
PROVIDERS: PCP Family Medicine; Referring Provider Family Medicine; Visit Provider Family Medicine
DX: E11.9 Type 2 diabetes mellitus without complications (principal); I10 Essential (primary) hypertension; K76.0 Fatty (change of) liver, not elsewhere classified
CPT/HCPCS: 36415; 80053; 80061; 83036

== ENCOUNTER → 2022-06-11 11:36 | Outpatient (CLI) | payer OTHER, MEDICARE, SELFPAY ==
[2020-08-15 10:49] VITALS: BMI 30.2
--- NOTE | 2022-06-11 11:39 | DI.MG.S_ITS ---
BILATERAL DIGITAL DIAGNOSTIC MAMMOGRAM 3D/2D SHORT-TERM FOLLOW-UP: 06/11/2022 CLINICAL: Short term follow up of the right breast, due for bilateral imaging. Comparison is made to exams dated: 06/15/2021 mammogram, 11/28/2020 mammogram, 06/08/2020 mammogram, and 05/10/2020 mammogram - [facility]. Both breasts are heterogeneously dense, which may obscure small masses (category c / 51-75% glandular tissue). There are benign regional fine calcifications in the right breast at 10 o'clock middle depth. These are not significantly changed. No other significant masses, calcifications, or other findings are seen in either breast. IMPRESSION: BENIGN There is no mammographic evidence of malignancy. Return to annual mammogram screening schedule is recommended. Based on the Tyrer Cuzick model (a risk assessment model) the patient's lifetime risk is 9.1% and her 10 year risk is 5.1%. According to the ACR, ACS, and NCCN guidelines, an annual breast MRI exam along with mammogram is recommended if the patient's lifetime risk is 20% or greater. This exam was interpreted at Station ID: [id number]. NOTE: For mammograms, a report in lay terms will be sent to the patient. Approximately 15% of breast malignancies will not be visualized mammographically. In the management of a palpable breast mass, a negative mammogram must not discourage biopsy of a clinically suspicious lesion. Electronically Signed By: Serg Clark M.D., jr/keagan:06/11/2022 13:21:21 letter sent: Normal Exam ACR BI-RADS Category 2: Benign Finding(s) [id number]
== END ==
PROVIDERS: PCP Family Medicine; Referring Provider Family Medicine; Visit Provider Family Medicine
DX: Z12.31 Encounter for screening mammogram for malignant neoplasm of breast (principal)
CPT/HCPCS: 77066; G0279

== ENCOUNTER → 2022-11-10 12:09 | Outpatient (CLI) | payer OTHER, MEDICARE, SELFPAY ==
[2020-08-15 10:49] VITALS: BMI 30.2
[2022-11-10 12:36] LABS: Hemoglobin A1C% w Est Avg Glu 6.7 % (4.0-6.0)
== END ==
PROVIDERS: PCP Family Medicine; Referring Provider Family Medicine; Visit Provider Family Medicine
DX: E11.9 Type 2 diabetes mellitus without complications (principal); E78.2 Mixed hyperlipidemia; I10 Essential (primary) hypertension; K76.0 Fatty (change of) liver, not elsewhere classified
CPT/HCPCS: 36415; 83036

== ENCOUNTER → 2023-06-05 11:45 | Outpatient (CLI) | payer OTHER, MEDICARE, SELFPAY ==
[2020-08-15 10:49] VITALS: BMI 30.2
[2023-06-05 12:47] LABS: Add Manual Diff / Slide Review NO; Basophils Absolute Auto 100 /uL (0-100); Basophils Percent Auto 1.2 % (0-2); Eosinophils Absolute Auto 100 /uL (0-450); Eosinophils Percent Auto 3.3 % (2-4); Hematocrit 42.7 % (36-46); Hemoglobin 14.5 g/dL (12.0-16.0); Lymphocytes Absolute Auto 1700 /uL (1100-4500); Lymphocytes Percent Auto 39.9 % (25-40); Mean Corpuscular HGB Conc 33.9 % (30-36); Mean Corpuscular Hemoglobin 32.1 PG (26-34); Mean Corpuscular Volume 94.6 fL (80-100); Monocytes Absolute Auto 400 /uL (0-900); Monocytes Percent Auto 9.2 % (3-14); Neutrophils Absolute Auto 2000 /uL (1500-7000); Neutrophils Percent Auto 46.4 % (50-75); Platelet Count 247 X10^3/uL (150-400); Red Blood Cell Count 4.51 X10^6/uL (4.0-5.2); Red Cell Distribution Width 12.9 % (11.6-14.8); White Blood Cell Count 4.3 X10^3/uL (4.5-11.0)
[2023-06-05 13:16] LABS: Alanine Aminotransferase 34 IU/L (<35); Albumin 4.6 g/dL (3.5-5.0); Albumin Globulin Ratio 1.5 (1.0-2.8); Alkaline Phosphatase 26 U/L (38-126); Aspartate Aminotransferase 36 IU/L (14-36); BUN Creatinine Ratio 21.5 (6-22); Bilirubin Total 0.8 mg/dL (0.2-1.3); Blood Urea Nitrogen 14 mg/dL (7-17); Calcium 9.4 mg/dL (8.4-10.2); Carbon Dioxide 28 mmol/L (22-32); Chloride 102 mmol/L (98-107); Cholesterol 155 mg/dL (140-199); Estimated Glomerular Filt Rate > 60 mL/min (>60); Globulin 3.1 g/dL (1.7-4.1); Glucose 147 mg/dL (80-110); HDL Cholesterol 57 mg/dL (40-60); HEMOLYSIS 19 (0-50); LDL Cholesterol Calculated 19 mg/dL (<100); Potassium 4.2 mmol/L (3.4-5.1); Sodium 140 mmol/L (137-145); Total Protein 7.7 g/dL (6.3-8.2); Triglycerides 394 mg/dL (35-150)
[2023-06-05 13:56] LABS: TSH w/ Reflex to FT4 1.47 uIU/mL (0.47-4.68)
[2023-06-05 17:59] LABS: Creatinine Urine Random 79.4 mg/dL
[2023-06-05 18:04] LABS: Microalbumi Creatinin Ratio Ur 8.8 ug/mg CR (<30); Microalbumin Urine Random 0.7 mg/dL (0-1.6)
== END ==
PROVIDERS: PCP Family Medicine; Referring Provider Family Medicine; Visit Provider Family Medicine
DX: E11.9 Type 2 diabetes mellitus without complications (principal); E78.1 Pure hyperglyceridemia; E78.2 Mixed hyperlipidemia; I10 Essential (primary) hypertension; K76.0 Fatty (change of) liver, not elsewhere classified
CPT/HCPCS: 36415; 80053; 80061; 82043; 82570; 83036; 84443; 85025

== ENCOUNTER → 2023-06-28 14:41 | Outpatient (CLI) | payer OTHER, MEDICARE, SELFPAY ==
[2020-08-15 10:49] VITALS: BMI 30.2
--- NOTE | 2023-06-28 | DI.MG.S_ITS ---
BILATERAL DIGITAL SCREENING MAMMOGRAM 3D/2D WITH CAD: 06/28/2023 CLINICAL: Routine screening. Comparison is made to exams dated: 06/11/2022 mammogram, 06/15/2021 mammogram, 11/28/2020 mammogram, 06/08/2020 mammogram, 05/10/2020 mammogram, and 05/07/2019 mammogram - [facility]. Both breasts are heterogeneously dense, which may obscure small masses (category c / 51-75% glandular tissue). Current study was also evaluated with a Computer Aided Detection (CAD) system. There are benign calcifications in both breasts. No significant masses, calcifications, or other findings are seen in either breast. There has been no significant interval change. IMPRESSION: BENIGN There is no mammographic evidence of malignancy. A 1 year screening mammogram is recommended. Based on the Tyrer Cuzick model (a risk assessment model) the patient's lifetime risk is 8.6% and her 10 year risk is 5.1%. According to the ACR, ACS, and NCCN guidelines, an annual breast MRI exam along with mammogram is recommended if the patient's lifetime risk is 20% or greater. This exam was interpreted at Station ID: [id number]. NOTE: For mammograms, a report in lay terms will be sent to the patient. Approximately 15% of breast malignancies will not be visualized mammographically. In the management of a palpable breast mass, a negative mammogram must not discourage biopsy of a clinically suspicious lesion. Electronically Signed By: Martin vincent/keagan:06/28/2023 18:51:08 letter sent: Normal Exam ACR BI-RADS Category 2: Benign Finding(s) 3342F
== END ==
PROVIDERS: PCP Family Medicine; Referring Provider Family Medicine; Visit Provider Family Medicine
DX: Z12.31 Encounter for screening mammogram for malignant neoplasm of breast (principal)
CPT/HCPCS: 77063; 77067

== ENCOUNTER → 2023-11-18 13:55 | Outpatient (CLI) | payer OTHER, MEDICARE, SELFPAY ==
[2020-08-15 10:49] VITALS: BMI 30.2
[2023-11-18 14:52] LABS: Add Manual Diff / Slide Review NO; Basophils Absolute Auto 100 /uL (0-100); Eosinophils Absolute Auto 200 /uL (0-450); Eosinophils Percent Auto 3.2 % (2-4); Hematocrit 42.7 % (36-46); Hemoglobin 14.3 g/dL (12.0-16.0); Lymphocytes Absolute Auto 1700 /uL (1100-4500); Mean Corpuscular HGB Conc 33.6 % (30-36); Mean Corpuscular Hemoglobin 32.3 PG (26-34); Mean Corpuscular Volume 96.2 fL (80-100); Monocytes Absolute Auto 600 /uL (0-900); Neutrophils Absolute Auto 3100 /uL (1500-7000); Neutrophils Percent Auto 54.8 % (50-75); Platelet Count 253 X10^3/uL (150-400); Red Blood Cell Count 4.44 X10^6/uL (4.0-5.2); Red Cell Distribution Width 12.7 % (11.6-14.8); White Blood Cell Count 5.6 X10^3/uL (4.5-11.0)
[2023-11-18 14:55] LABS: Hemoglobin A1C% w Est Avg Glu 6.1 % (4.0-6.0)
[2023-11-18 15:08] LABS: Alanine Aminotransferase 41 IU/L (<35); Albumin 4.8 g/dL (3.5-5.0); Albumin Globulin Ratio 1.5 (1.0-2.8); Alkaline Phosphatase 37 U/L (38-126); Aspartate Aminotransferase 42 IU/L (14-36); BUN Creatinine Ratio 17.2 (6-22); Bilirubin Total 0.8 mg/dL (0.2-1.3); Blood Urea Nitrogen 11 mg/dL (7-17); Calcium 9.8 mg/dL (8.4-10.2); Carbon Dioxide 25 mmol/L (22-32); Chloride 102 mmol/L (98-107); Cholesterol 159 mg/dL (140-199); Estimated Glomerular Filt Rate > 60 mL/min (>60); Globulin 3.3 g/dL (1.7-4.1); Glucose 115 mg/dL (80-110); HDL Cholesterol 66 mg/dL (40-60); HEMOLYSIS < 15 (0-50); LDL Cholesterol Calculated 21 mg/dL (<100); Potassium 3.6 mmol/L (3.4-5.1); Sodium 140 mmol/L (137-145); Total Protein 8.1 g/dL (6.3-8.2); Triglycerides 361 mg/dL (35-150)
[2023-11-18 15:43] LABS: TSH w/ Reflex to FT4 1.26 uIU/mL (0.47-4.68)
== END ==
PROVIDERS: PCP Family Medicine; Referring Provider Family Medicine; Visit Provider Family Medicine
DX: K76.0 Fatty (change of) liver, not elsewhere classified (principal); I10 Essential (primary) hypertension; E78.2 Mixed hyperlipidemia; E78.1 Pure hyperglyceridemia; E11.9 Type 2 diabetes mellitus without complications
CPT/HCPCS: 80053; 80061; 83036; 84443; 85025

== ENCOUNTER 2024-05-26 07:07 | Day surgery (SDC) | payer OTHER, MEDICARE, SELFPAY ==
[2020-08-15 10:49] VITALS: BMI 30.2
[2024-05-26] MEDS: LACTATED RINGERS 1,000 ML 42 ML IV (07:29)
[2024-05-26 07:31] VITALS: BP 213/99; PULSE 75; RESP 18; TEMP 36.3; O2SAT 99
[2024-05-26] MEDS: METOPROLOL TARTRATE 5 MG/5 ML INJ 2.5 MG IV (07:50)
--- NOTE | 2024-05-26 07:57 | SUR.PREOP ---
Pt's blood pressure very elevated at 210/[address] Trejo and Metoprolol ordered and given at 2.5 mg IV. Will monitor blood pressure and heart rated until procedure is completed. Pt denies dizziness, chest pain and SOB. Pt did take her blood pressure medication this am. No complaints of pain or anxiety at present time.
--- NOTE | 2024-05-26 08:06 | SUR.PREOP ---
Dr. Huang into see pt and pt's blood pressure did not decreased with metoprolol. Dr. Huang cancelled pt's procedure and will call Dr. Rehman's office to have him set up for pt to be followed up pt was given instructions to call MD and go to the OR if pt has any symptoms such as chest pain., vision changes , palpitations and numbness or tingling.
--- NOTE | 2024-05-26 08:13 | PM.CALLCOV.1 ---
Call Coverage Note Note Date of Patient Contact: 05/26/24 Time of Patient Contact: 08:13 Narrative of Care Provided: 68-year-old female here for screening colonoscopy. Systolic blood pressure consistently 210 despite IV metoprolol. Procedure canceled. Patient will need to follow up with PCP for hypertension management prior to rescheduling.
--- NOTE | 2024-05-26 08:19 | SUR.PREOP ---
Called Dr. Rehman office and pt to seen today at 1030 at his office. Pt aware and MD aware.
== END 2024-05-26 07:10 | disposition home or self-care (01) ==
LOC: ENDO 07:09
PROVIDERS: PCP Family Medicine; Referring Provider Surgery; Visit Provider Surgery
DX: Z12.11 Encounter for screening for malignant neoplasm of colon (principal); Z86.010 Personal history of colon polyps; Z53.9 Procedure and treatment not carried out, unspecified reason
CPT/HCPCS: 45378; J2704

== ENCOUNTER → 2024-07-09 14:09 | Outpatient (CLI) | payer OTHER, MEDICARE, SELFPAY ==
[2020-08-15 10:49] VITALS: BMI 30.2
--- NOTE | 2024-07-09 14:10 | DI.MG.S_ITS ---
BILATERAL DIGITAL SCREENING MAMMOGRAM 3D/2D WITH CAD: 07/09/2024 CLINICAL: Routine screening. Comparison is made to exams dated: 06/28/2023 mammogram, 06/11/2022 mammogram, 06/15/2021 mammogram, and 11/28/2020 mammogram - [facility]. The breasts are heterogeneously dense, which may obscure small masses (category c / 51-75% glandular tissue). Current study was also evaluated with a Computer Aided Detection (CAD) system. There are benign calcifications in both breasts. No significant masses, calcifications, or other findings are seen in either breast. There has been no significant interval change. IMPRESSION: BENIGN There is no mammographic evidence of malignancy. A 1 year screening mammogram is recommended. Based on the Tyrer Cuzick model (a risk assessment model) the patient's lifetime risk is 8.1% and her 10 year risk is 5.2%. According to the ACR, ACS, and NCCN guidelines, an annual breast MRI exam along with mammogram is recommended if the patient's lifetime risk is 20% or greater. This exam was interpreted at Station ID: [id number]. NOTE: For mammograms, a report in lay terms will be sent to the patient. Approximately 15% of breast malignancies will not be visualized mammographically. In the management of a palpable breast mass, a negative mammogram must not discourage biopsy of a clinically suspicious lesion. Electronically Signed By: Martin vincent/keagan:07/10/2024 20:56:18 letter sent: Normal Exam ACR BI-RADS Category 2: Benign
== END ==
LOC: MAMMO 14:10
PROVIDERS: PCP Family Medicine; Referring Provider Family Medicine; Visit Provider Family Medicine
DX: Z12.31 Encounter for screening mammogram for malignant neoplasm of breast (principal); R92.333 Mammographic heterogeneous density, bilateral breasts
CPT/HCPCS: 77063; 77067

== ENCOUNTER 2024-09-04 08:24 | Day surgery (SDC) | payer OTHER, MEDICARE, SELFPAY ==
[2020-08-15 10:49] VITALS: BMI 30.2
--- NOTE | 2024-09-04 | PATH_ITS ---
[facility] Accession Number: [id number] No. of containers..01 Tissue . 01 Material submitted: . colon - ASCENDING POLYP X3 . 01 Diagnosis: ASCENDING POLYP X3: Tubular adenomas. [facility] 09/07/2024 1515 Local . 01 Electronically signed: . Pillo Burns MD, Pathologist NPI- [id number] . 01 Gross description: . Received in formalin, labeled with two patient identifiers and ascending polyp x3, are four sidhu soft tissue fragments measuring 0.3-1.1 cm in greatest dimension. Submitted in cassette A1. ([id number]) /FRR 09/07/2024 1515 Local . 01 Pathologist provided ICD-10: D12.2 . 01 CPT . 048084 Specimen Comment: A courtesy copy of this report has been sent to [facility] Performed at: [address] [facility] [address] [address], [place], [place] [id number] MD Pillo Burns MD Phone: [phone]
[2024-09-04 09:09] VITALS: BP 160/89; PULSE 93; RESP 18; TEMP 36.6; O2SAT 97
--- NOTE | 2024-09-04 09:58 | PM.HP.1 ---
History of Present Illness History of Present Illness Date Patient Seen: 09/04/24 Time Patient Seen: 09:58 Chief complaint: SDC Narrative: 68-year-old female here for screening colonoscopy. She is post I 1 in May, but her blood pressure was not under adequate control at that time and she was rescheduled. Her blood pressure is better today. [facility] Medical History NAFLD (nonalcoholic fatty liver disease) Hyperlipidemia Hypertension Surgical History Status post surgery (01/10/10) Status post tubal ligation Family History Brother Age: 69 Hypertension Mother Kidney failure Sister Age: 76 Hypertension Social History household members: spouse Smoking Status: Former smoker alcohol intake: current Meds Home Medications and Allergies Home Medications Medication Instructions Recorded Confirmed Type clobetasol 0.05 % topical ointment 1 applictn topical BID PRN Itching 03/10/19 07/23/24 Rx #60 grams blood sugar diagnostic (Blood #100 ea 02/13/22 07/23/24 Rx Glucose Test strips) albuterol sulfate 90 mcg/actuation 2 puff inhalation Q4-6H PRN 10/23/22 09/04/24 Rx aerosol inhaler shortness of breath or wheezing #8.5 grams one touchBionymt ultra device #1 ea 11/22/22 07/23/24 Rx machine fenofibrate nanocrystallized 145 145 mg PO HS #90 tabs 09/24/23 09/04/24 Rx mg tablet (Tricor) glimepiride 2 mg tablet 2 mg PO BID #180 tabs 09/24/23 09/04/24 Rx metformin 500 mg tablet 1,000 mg (2 x 500 mg) PO 0800,1700 09/24/23 07/23/24 Rx #360 tabs rosuvastatin 10 mg tablet See Rx Instructions .Route 09/24/23 07/23/24 Rx .COMPLEX #90 tabs fluticasone 250 mcg-salmeterol 50 1 inh inhalation BID #90 ea 10/28/23 07/23/24 Rx mcg/dose blistr powdr for inhalation (Advair Diskus) blood sugar diagnostic (Blood #100 ea 04/24/24 07/23/24 Rx Glucose Test strips) empagliflozin 25 mg tablet See Rx Instructions .Route 06/16/24 09/04/24 Rx (Jardiance) .COMPLEX #90 tabs lancets 33 gauge (OneTouch Delica #300 ea 07/15/24 07/23/24 Rx Plus Lancet) lisinopril 20 2 tab PO DAILY #180 tabs 07/16/24 09/04/24 Rx mg-hydrochlorothiazide 12.5 mg tablet sodium,potassium,mag sulfates 17.5 See Rx Instructions PO .COMPLEX 08/05/24 Rx gram-3.13 gram-1.6 gram oral soln #354 mL (Suprep Bowel Prep Kit) Allergies Allergy/AdvReac Type Severity Reaction Status Date / Time No Known Drug Allergies Allergy Verified 09/04/24 09:22 Review of Systems Review of Systems ROS: Yes All systems reviewed with the patient and are negative except as otherwise documented Exam Vital Signs (past 8 hours): - 09/04/24 09:09 Temperature 97.8 F Pulse Rate 93 H Respiratory Rate 18 Blood Pressure 160/89 H Pulse Oximetry 97 Oxygen Delivery Method Room Air Oxygen Delivery Method Room Air Narrative Exam Narrative: Gen: NAD, sitting comfortably in bed, appears well HEENT: Sclera are anicteric, head is normocephalic and atraumatic, trachea is midline. CV: RRR, no JVD Resp: clear to auscultation bilaterally, equal chest wall movement bilaterally Abd: soft, nontender, normoactive bowel sounds Ext: no edema, full range of motion Neuro: Cranial nerves II-XII grossly intact, no focal deficits Skin: No erythema or ecchymosis Assessment & Plan Assessment and plan (1) Colon cancer screening: Status: Acute Assessment & Plan narrative: Patient presents for initial screening colonoscopy Risks, benefits, alternatives to colonoscopy explained, including but not limited to bowel perforation or other serious complication requiring surgery at less than 1 in 5000 colonoscopies, abdominal pain, cramping or bleeding and less than 1% of colonoscopies, and the chances that we find a diagnosis that would require further intervention of about 2%. Patient agrees to proceed. Time-Based Coding :: [TOTAL MINUTES] spent with patient and on the chart (including review of chart, obtaining history, exam, reviewing outside data, placing orders, documenting exam and treatment plan, and counseling patient) on [DATE].
--- NOTE | 2024-09-04 10:21 | PM.OP.COLON ---
Operative Date/Time/Diagnoses Date of procedure: 09/04/24 Time of procedure: 10:21 Pre-op diagnosis: Colon cancer screening Post-op diagnosis: other (Ascending colon, polyps x3) Procedure & Clinicians Study performed: Colonoscopy with cold snare polypectomy x3 Same procedure as scheduled: Yes Indications: Colon cancer screening Surgeon: Joey Fournier Procedure Notes SCOAP/Timeout: Perform Procedure in detail: Time-out was performed. Mac was induced. Patient was placed in left lateral decubitus position. The perineum was inspected without any gross abnormality. Lubricated pediatric colonoscope was inserted and advanced to the cecum. The terminal ileum was intubated. The colonoscope was withdrawn slowly inspecting the circumference of the colon. There were 3 subcentimeter ascending colon polyps taken by cold snare and retrieved completely. Sent in 1 specimen cup. Very small polyps may have been missed, prep quality was adequate. Retroflexed view of the rectum showed small, non prolapsed nonbleeding internal hemorrhoids. The scope was withdrawn the patient was taken to PACU in good condition. Scope withdrawal time: 8 Sedation minutes: 13 Findings: polyp(s) Specimen(s): other (Ascending colon polyps x3) Complications: none Impression: Colon polyps Post-procedure Recommendations: Colonoscopy in 3 years Follow up: as needed Disposition: PACU
[2024-09-04 10:30] VITALS: BP 92/52; PULSE 94; RESP 20; TEMP 36.7; O2SAT 96
[2024-09-04 10:35] VITALS: BP 100/60; PULSE 94; RESP 18; O2SAT 94
[2024-09-04 10:39] VITALS: BP 101/65; PULSE 83; RESP 20; O2SAT 95
[2024-09-04 10:45] VITALS: BP 110/75; PULSE 84; RESP 18; TEMP 36.7; O2SAT 94
== END 2024-09-04 10:51 | disposition home or self-care (01) ==
PROVIDERS: PCP Family Medicine; Referring Provider Surgery; Visit Provider Surgery
PROC: 0DJD8ZZ Inspection of Lower Intestinal Tract, Via Natural or Artificial Opening Endoscopic (ICD-10-PCS; CPT 45378; principal; 2024-09-04 09:45)
DX: Z12.11 Encounter for screening for malignant neoplasm of colon (principal); K64.8 Other hemorrhoids; D12.2 Benign neoplasm of ascending colon
CPT/HCPCS: 45385; 82962; J2704

== ENCOUNTER → 2024-11-25 10:28 | Outpatient (CLI) | payer OTHER, MEDICARE, SELFPAY ==
[2020-08-15 10:49] VITALS: BMI 30.2
[2024-11-25 11:20] LABS: Add Manual Diff / Slide Review NO; Basophils Absolute Auto 100 /uL (0-100); Basophils Percent Auto 1.1 % (0-2); Eosinophils Absolute Auto 200 /uL (0-450); Eosinophils Percent Auto 3.5 % (2-4); Hematocrit 39.6 % (36-46); Hemoglobin 13.4 g/dL (12.0-16.0); Lymphocytes Absolute Auto 2200 /uL (1100-4500); Lymphocytes Percent Auto 45.1 % (25-40); Mean Corpuscular HGB Conc 33.9 % (30-36); Mean Corpuscular Hemoglobin 32.6 PG (26-34); Mean Corpuscular Volume 96.1 fL (80-100); Monocytes Absolute Auto 600 /uL (0-900); Monocytes Percent Auto 11.5 % (3-14); Neutrophils Absolute Auto 1900 /uL (1500-7000); Neutrophils Percent Auto 38.8 % (50-75); Platelet Count 298 X10^3/uL (150-400); Red Blood Cell Count 4.12 X10^6/uL (4.0-5.2); Red Cell Distribution Width 12.6 % (11.6-14.8); White Blood Cell Count 4.9 X10^3/uL (4.5-11.0)
[2024-11-25 11:50] LABS: Alanine Aminotransferase 25 IU/L (<35); Albumin 4.7 g/dL (3.5-5.0); Alkaline Phosphatase 30 U/L (38-126); Aspartate Aminotransferase 29 IU/L (14-36); BUN Creatinine Ratio 19.5 (6-22); Bilirubin Total 0.5 mg/dL (0.2-1.3); Blood Urea Nitrogen 17 mg/dL (7-17); Calcium 10.1 mg/dL (8.4-10.2); Carbon Dioxide 31 mmol/L (22-32); Chloride 98 mmol/L (98-107); Cholesterol 158 mg/dL (140-199); Estimated Glomerular Filt Rate > 60 mL/min (>60); Globulin 2.4 g/dL (1.7-4.1); Glucose 149 mg/dL (80-110); HDL Cholesterol 58 mg/dL (40-60); HEMOLYSIS < 15 (0-50); LDL Cholesterol Calculated 30 mg/dL (<100); Potassium 4.4 mmol/L (3.4-5.1); Sodium 139 mmol/L (137-145); Total Protein 7.1 g/dL (6.3-8.2); Triglycerides 350 mg/dL (35-150)
[2024-11-25 12:19] LABS: TSH w/ Reflex to FT4 2.21 uIU/mL (0.47-4.68)
[2024-11-25 13:12] LABS: Hemoglobin A1C% w Est Avg Glu 6.4 % (4.0-6.0)
== END ==
PROVIDERS: PCP Family Medicine; Referring Provider Family Medicine; Visit Provider Family Medicine
DX: E11.9 Type 2 diabetes mellitus without complications (principal); I10 Essential (primary) hypertension; E78.2 Mixed hyperlipidemia
CPT/HCPCS: 36415; 80053; 80061; 83036; 84443; 85025